=== PATIENT | female | born 1960 | race Caucasian/White ===

== ENCOUNTER 2018-12-07 15:49 | Emergency (ER) | payer MEDICARE, SELFPAY ==
[2018-12-07 15:51] VITALS: BP 166/104; PULSE 104; RESP 18; TEMP 36.7; O2SAT 100; BMI 19.3
--- NOTE | 2018-12-07 16:02 | EKG12_ITS ---
Test Reason : Blood Pressure : / mmHG Vent. Rate : 100 BPM Atrial Rate : 100 BPM P-R Int : 150 ms QRS Dur : 080 ms QT Int : 344 ms P-R-T Axes : 065 067 070 degrees QTc Int : 443 ms Normal sinus rhythm Normal ECG Confirmed by SHARRON MARSH, ALFREDO ([id number]), advertising editor ROBIN ALEXIS ([id number]) on 12/11/2018 9:20:09 AM Referred By: MARCIAL Confirmed By:ALFREDO MCDERMOTT MD
--- NOTE | 2018-12-07 16:02 | RAD_ITS ---
STUDY: X-RAY CHEST REASON FOR EXAM: Female, 58 years old. Cough and chest pain TECHNIQUE: PA and lateral views of the chest. COMPARISON: 06/04/2016 FINDINGS: EKG leads overlie the chest There is hyperinflation of the lungs consistent with chronic obstructive lung disease (COPD). There is no demonstrated pleural abnormality. Normal size heart. Normal mediastinum and stephania. Normal visualized pulmonary arteries. There is atherosclerotic calcification of the aortic arch with tortuosity. There are diffuse degenerative changes of the visualized thoracic spine. Normal visualized ribs, clavicles, and shoulders. There is no demonstrated abnormality of the visualized soft tissue structures of the upper abdomen. RAD/Chest PA and Lateral IMPRESSION: Hyperexpanded lungs, no superimposed acute pulmonary process Electronically Signed: Wild Villa MD at 16:42 EST , Service support ,
[2018-12-07 16:17] VITALS: PULSE 100; RESP 18; O2SAT 96
[2018-12-07] MEDS: Ipratropium/Albuterol Sulfate 3 ML AMPUL.NEB INHALATION (16:17)
[2018-12-07 16:19] LABS: Absolute Lymphocyte Count 1.56 X10^3/ul (0.83-4.51); Absolute Neutrophil Count 5.2 X10^3/uL (2.0-7.7); Basophil# 0.05 X10^3/uL; Basophil% 0.6 % (0-1); Eosinophil# 0.12 X10^3/uL; Eosinophils% 1.5 % (0-5); Hematocrit 40.3 % (37-47); Hemoglobin 13.7 g/dl (12.0-15.0); Lymphocyte # 1.56 X10^3/ul (4.0); Lymphocyte % 19.9 % (19-41); Mean Corpuscular Hgb 31.4 pg (27.0-32.0); Mean Corpuscular Volume 92.2 fL (81-99); Mean Platelet Vol. 8.9 fl (6.2-12.0); Monocyte# 0.92 X10^3/uL; Monocyte% 11.7 % (0-10); Neutrophil # 5.18 X10^3/uL (2.7-7.7); POSITIVE COUNT NO; POSITIVE DIFFERENTIAL NO; POSITIVE MORPHOLOGY NO; Platelet Count 328 K/mm3 (150-450); RBC Distribution Width CV 12.6 % (11.6-14.6); RBC Distribution Width SD 41.3 fl (35.1-43.9); Red Blood Count 4.37 M/mm3 (4.2-5.4); White Blood Count 7.9 K/mm3 (4.4-11.0)
[2018-12-07] MEDS: MethylPREDNISolone 125 MG/2 ML Vial IV (16:21)
[2018-12-07] MEDS: 0.9% Normal Saline 1,000 ML 150 ML IV (16:21)
[2018-12-07 16:37] LABS: Anion Gap 9 (5-15); BUN 16 mg/dL (7-18); BUN/Creat Ratio 19.4 RATIO (10-20); Calcium,Total 8.9 mg/dL (8.5-10.1); Chloride 96 mmol/L (98-107); Creatinine, Serum 0.82 mg/dL (0.55-1.02); EST Glomerular Filtration Rate 75 mL/min (>60); Est Glom Filt Rate - Afr Amer 91 mL/min (>60); Estimated Creatinine Clearance 52.24 ml/min; Glucose 81 mg/dL (74-106); Potassium 3.7 mmol/L (3.5-5.1); Sodium Level 133 mmol/L (136-145)
[2018-12-07 16:49] VITALS: BP 164/107; PULSE 104; RESP 21; O2SAT 96
--- NOTE | 2018-12-07 17:01 | ED.DCSUM_ITS ---
- ER Visit Summary Date of Service: 12/07/18 Chief Complaint: Cough and shortness of breath History of Present Illness: The patient is a [address] Colon. 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 She does have a history of COPD. She reports that she has cough shortness of breath began 2 days ago. Is gradually worsened. It is mild at rest and severe with coughing or walking around. She taken her albuterol MDI with transient relief. Patient reports that her cough is productive yellow sputum without blood. She had subjective fever, chills, and sweats. She does report she has had right- sided chest pain that is off and on. Last proximal me 10 seconds at a time. She actually reports that it actually improves with movement. Patient did not get a flu shot this year. She reports that she had similar symptoms previously with her COPD. Physical Examination: Vitals: Stable. Afebrile. General: Well-developed, but cachectic. Head: Normocephalic atraumatic. Neck: Supple, no lymphadenopathy. No JVD. Nontender. Cardiovascular: Regular rate and rhythm. No murmurs. Respiratory: No respiratory distress. Clear to auscultation bilaterally. Poor air movement. Abdominal: Soft, nontender, nondistended, normal bowel sounds. No guarding, rebound, or peritoneal signs. Back: Nontender. Extremities: Nontender, no edema. Skin: Normal color, no rash. Neurologic: Alert and oriented ?3. Cranial nerves II through XII are intact. Normal strength and sensation. Psych: Normal affect. Test Results: EKG is sinus at [address] changes. Troponin is negative. Chem-7 is more for sodium 133 and chloride 96. CBC is remarkable for monocytes of 12. Chest x-ray shows chronic emphysematous changes with hyperexpansion, but no acute process. Influenza was negative. Emergency Department Course and Treatment: Patient was treated with albuterol Atrovent aerosols. She was given Solu-Medrol IV. She is resting comfortably. Treatment Plan: Patient will be discharged with prednisone and doxycycline. Instructed to follow-up her primary care physician in 3-5 days if not improving. Return to the emergency department for any worsening symptoms. Disposition: To home in improved and stable condition. Impression: 1. COPD exacerbation. This note was generated with [employer] dictation software. It may contain incorrect words, spelling, and punctuation that were not noted in review of the chart prior to signing ED Disposition - Plan for ED Patient: Chief Complaint: Shortness of Breath Instructions: ED COPD Flare Prescriptions: Prednisone 10 mg PO DAILY #63 tablet Doxycycline 100 mg PO BID #20 capsule Referrals: Erick Colon DO [Primary Care Provider] - 3-5 Days if not improving
[2018-12-07] MEDS: Doxycycline 100 MG CAPSULE PO (17:13)
[2018-12-07 17:15] VITALS: BP 160/96; PULSE 106; RESP 18; O2SAT 97
--- OUTSIDE RECORDS SUMMARY | 2019-02-11 12:08 | XMS RPT_ITS ---
:1960 Author Organization [facility] Care Team Providers Name Role Phone TOM LABOY (FOOD TECHNOLOGIST) Attending Unavailable ERICK LEONARD Attending Unavailable ERICK LEONARD Attending Unavailable ERICK LEONARD Referring Unavailable ERICK LEONARD L Referring Unavailable ERICK LEONARD L Referring Unavailable ERICK LEONARD Referring Unavailable Erick Leonard Primary Care Unavailable Benjamin Hess Attending Unavailable PROBLEMS PROBLEMS DATE TYPE CONDITION / CODE ATTENDING STATUS SOURCE 09/25/2018 Active Wedge compression NA Active [facility] fracture of [place] unspecified Repository thoracic vertebra, sequela / S22.000S(ICD-10) 08/03/2018 Active Encounter for NA Active [facility] screening [place] mammogram for Repository malignant neoplasm of breast / Z12.31(ICD-10) 08/02/2018 Active Solitary pulmonary NA Active [facility] nodule / [place] R91.1(ICD-10) Repository 08/02/2018 Active Abnormal findings NA Active [facility] on diagnostic [place] imaging of other Repository specified body structures / R93.8(ICD-10) PROCEDURES PROCEDURES No Procedure Records FoundRESULTS RESULTS 12 LEAD ELECTROCARDIOGRAM Observed: 12/11/2018 Status: F Source: [place] 9:20 AM [facility] REPOSITORY [facility] Cardiovascular Services [address] [place] [address] 12 Lead EKG 12/07/18 1605 MR#: [id number] Acct: [id number] Name: FANI HOLLAND Rep #: [id number] : 1960 58 From: Orlin Barber MD Attending Dr: Status: DEP ER Ordering Dr: Benjamin Hess MD Date: 12/07/18 Location: ED Sex: F C Admitted: Test Reason : Blood Pressure : / mmHG Vent. Rate : 100 BPM Atrial Rate : 100 BPM P-R Int : 150 ms QRS Dur : 080 ms QT Int : 344 ms P-R-T Axes : 065 067 070 degrees QTc Int : 443 ms Normal sinus rhythm Normal ECG Confirmed by SHARRON MARSH, ORLIN ([id number]), digital editor RBOIN ALEXIS ([id number]) on 12/11/2018 9:20:09 AM Referred By: MARCIAL Confirmed By:ORLIN BARBER MD 12/11/18919 Date Orlin Barber MD CC: Erick Zapata DO; Benjamin Hess MD Signed EMERGENCY DEPARTMENT Observed: 12/08/2018 Status: F Source: [place] SUMMARY 12:13 AM [facility] Medical Records Department [address] [place] [address] Emergency Department Summary 12/07/18 1659 MR#: [id number] Acct: [id number] Name: FANI HOLLAND Rep #: [id number] : 1960 58 From: Benjamin Hess MD PCP: Erick Zapata DO Status: DEP ER - ER Visit Summary Date of Service: 12/07/18 Chief Complaint: Cough and shortness of breath History of Present Illness: The patient is a [address] Leonard. She does not have a investment broker. She does have a history of COPD. She reports that she has cough shortness of breath began 2 days ago. Is gradually worsened. It is mild at rest and severe with coughing or walking around. She taken her albuterol MDI with transient relief. Patient reports that her cough is productive yellow sputum without blood. She had subjective fever, chills, and sweats. She does report she has had right- sided chest pain that is off and on. Last proximal me 10 seconds at a time. She actually reports that it actually improves with movement. Patient did not get a flu shot this year. She reports that she had similar symptoms previously with her COPD. Physical Examination: Vitals: Stable. Afebrile. General: Well-developed, but cachectic. Head: Normocephalic atraumatic. Neck: Supple, no lymphadenopathy. No JVD. Nontender. Cardiovascular: Regular rate and rhythm. No murmurs. Respiratory: No respiratory distress. Clear to auscultation bilaterally. Poor air movement. Abdominal: Soft, nontender, nondistended, normal bowel sounds. No guarding, rebound, or peritoneal signs. Back: Nontender. Extremities: Nontender, no edema. Skin: Normal color, no rash. Neurologic: Alert and oriented 3. Cranial nerves II through XII are intact. Normal strength and sensation. Psych: Normal affect. Test Results: EKG is sinus at [address] changes. Troponin is negative. Chem-7 is more for sodium 133 and chloride 96. CBC is remarkable for monocytes of 12. Chest x-ray shows chronic emphysematous changes with hyperexpansion, but no acute process. Influenza was negative. Emergency Department Course and Treatment: Patient was treated with albuterol Atrovent aerosols. She was given Solu-Medrol IV. She is resting comfortably. Treatment Plan: Patient will be discharged with prednisone and doxycycline. Instructed to follow-up her primary care physician in 3-5 days if not improving. Return to the emergency department for any worsening symptoms. Disposition: To home in improved and stable condition. Impression: 1. COPD exacerbation. This note was generated with [employer] dictation software. It may contain incorrect words, spelling, and punctuation that were not noted in review of the chart prior to signing ED Disposition - Plan for ED Patient: Chief Complaint: Shortness of Breath Instructions: ED COPD Flare Prescriptions: Prednisone 10 mg PO DAILY #63 tablet Doxycycline 100 mg PO BID #20 capsule Referrals: Erick Leonard, DO [Primary Care Provider] - 3-5 Days if not improving What to do if you have Problems For any increased pain, shortness of breath, bleeding, nausea or vomiting, chest pain, or any unexpected problems, contact your Primary Care Provider. Call [facility] ([phone]) or report to the closest Emergency Room. Call 911 if necessary. 12/08/18 0013 <Electronically signed by Benjamin Hess MD> Date Benjamin Hess MD Cosigner Signature (If Indicated): Date CC: Erick Zapata DO Observed: 12/07/2018 Status: F Source: [place] INFLUENZA A+B (RAPID 4:20 PM [facility] [place]) REPOSITORY FLU A/B Rapid Negative test results should be confirmed with FLU PANEL MOLECULAR if indicated. Influenza Ag, Direct Presumptive NEGATIVE for Influenza A/B Antigen (See Note) Performed By: #### M101.0101 #### [facility] [address] [place], [address] CHEST PA AND LATERAL Observed: 12/07/2018 Status: F Source: [place] 4:03 PM [facility] REPOSITORY [facility] Imaging Services [address] [place] [address] Chest PA and Lateral MR#: [id number] Acct: [id number] Name: FANI HOLLAND Rep #: [id number] : 1960 F 58 From: Lexa Villa MD PCP: Erick Zapata DO Status: PRE ER Study: Chest PA and Lateral Date of Exam: 12/07/18 Exam# [id number] Ordering Dr: Benjamin Hess MD STUDY: X-RAY CHEST REASON FOR EXAM: Female, 58 years old. Cough and chest pain TECHNIQUE: PA and lateral views of the chest. COMPARISON: 06/04/2016 FINDINGS: EKG leads overlie the chest There is hyperinflation of the lungs consistent with chronic obstructive lung disease (COPD). There is no demonstrated pleural abnormality. Normal size heart. Normal mediastinum and stephania. Normal visualized pulmonary arteries. There is atherosclerotic calcification of the aortic arch with tortuosity. There are diffuse degenerative changes of the visualized thoracic spine. Normal visualized ribs, clavicles, and shoulders. There is no demonstrated abnormality of the visualized soft tissue structures of the upper abdomen. RAD/Chest PA and Lateral IMPRESSION: Hyperexpanded lungs, no superimposed acute pulmonary process Electronically Signed: Wild Villa MD at 16:42 EST , Service support , CC: Erick Zapata DO; Benjamin Hess MD Exhibit Cleaner: Signed CBC W/DIFF, AUTOMATED Collected: 12/07/2018 Status: F Source: [place] 3:50 PM [facility] REPOSITORY TYPE CODE TESTS RESULT OUT OF RANGE REFERENCE UNITS LAB L100.1000 4.4-11.0 K/mm3 Normal WBC 7.9 LAB L100.1200 4.2-5.4 M/mm3 Normal RBC 4.37 LAB L100.1300 12.0-15.0 g/dl Normal HGB 13.7 LAB L100.1400 37-47 % Normal HCT 40.3 LAB L100.1500 81-99 fL Normal MCV 92.2 LAB L100.1600 27.0-32.0 pg Normal MCH 31.4 LAB L100.1700 32-36 g/gl Normal MCHC 34.0 LAB L100.1810 11.6-14.6 % Normal RDW CV 12.6 LAB L100.1820 35.1-43.9 fl Normal RDW SD 41.3 LAB L100.1900 150-450 K/mm3 Normal PLT 328 LAB L100.2000 6.2-12.0 fl Normal MPV 8.9 LAB L100.2100 47-70 % Normal NEUT% 66.0 LAB L100.2200 19-41 % Normal LY% 19.9 LAB L100.2300 0-10 % High MONO% 11.7 LAB L100.2400 0-5 % Normal EO% 1.5 LAB L100.2500 0-1 % Normal BASO% 0.6 LAB L100.2550 0.0-0.9 % Normal IM GRAN % 0.300 Result Comment: IG% - Immature Granulocytes (promyelocytes, myelocytes and metamyelocytes) > 1% indicates that a LEFT SHIFT is Present. LAB L100.2620 2.0-7.7 X10 3/uL Normal Absolute Neut 5.2 LAB L100.2720 0.83-4.51 X10 3/ul Normal Absolute Lymph 1.56 Performed By: #### L100.0100 #### [facility] [address] [facility] [place], [place], [address] BASIC METABOLIC Collected: 12/07/2018 Status: F Source: [place] PROFILE (BMP) 3:50 PM [facility] REPOSITORY TYPE CODE TESTS RESULT OUT OF RANGE REFERENCE UNITS LAB L501.0100 74-106 mg/dL Normal GLU 81 Result Comment: Please note revised GLUCOSE reference range effective 2017. LAB L501.1000 7-18 mg/dL Normal BUN 16 LAB L501.1100 0.55-1.02 mg/dL Normal CREAT,SERUM 0.82 Result Comment: The validity of the calculated GFR AND GFRAA in patients over 70 years has not been determined. Clinical correlation is essential. LAB L501.1110 >60 mL/min Normal EST GFR 75 Result Comment: Non- GFR Calc LAB L501.1115 >60 mL/min Normal EST GFR - AA 91 Result Comment: GFR Calc LAB L501.1255 ml/min Normal Estimated CRCL 52.24 LAB L501.1300 10-20 RATIO Normal BUN/CRE 19.4 LAB L501.2200 8.5-10 mg/dL Normal .1 CA 8.9 LAB L501.5300 136-14 mmol/L Low 5 NA 133 LAB L501.5600 3.5-5. mmol/L Normal 1 K 3.7 LAB L501.5900 98-107 mmol/L Low CL 96 LAB L501.6100 21.0-3 mmol/L Normal 2.0 CO2 28.0 LAB L501.6200 5-15 Normal GAP 9 Performed By: #### L500.2500, L501.4010 #### [facility] [address] [place], [address] TROPONIN-I Collected: 12/07/2018 Status: F Source: [place] 3:50 [facility] REPOSITORY TYPE CODE TESTS RESULT OUT OF RANGE REFERENCE UNITS LAB L501.4010 <0.045 ng/mL Normal < 0.015 TROPONIN-I Result Comment: TROPONIN-I EXPECTED VALUES <0.045 Negative 0.045 - 0.590 Consistent with Cardiac Damage > OR = 0.600 Critical Value Not every elevated troponin is indicative of [place]. These values should be used with clinical judgement in examining the patient's clinical picture for diagnosis. To establish a diagnosis of [place] versus myocardial injury, there must be a demonstrated rise and/or fall in the troponin values, in addition to ischemic symptoms, EKG changes, new regional wall motion abnormality, and/or angiographical evidence. PLEASE NOTE: REFERENCE RANGES EDITED 18 Performed By: #### L500.2500, L501.4010 #### [facility] [address] [place], [address] BD DXA - AXIAL Observed: 09/25/2018 Status: F Source: [place] 1:13 PM [facility] REPOSITORY * * *Final Report* * * DATE OF EXAM: Sep 25 2018 1:13PM [facility] 0804 - BD DXA - AXIAL SKELETON / PROCEDURE REASON: Closed compression fracture of thoracic vertebra, sequela * * * * Physician Interpretation * * * * PROCEDURE: BD DXA - AXIAL SKELETON INDICATION: Closed compression fracture of thoracic vertebra, sequela TECHNIQUE: Low dose hip images COMPARISON: LEFT HIP: The bone mineral density of the total region of the hip is 0.537 grams per square centimeter which yields a T-score of -3.3. . LEFT FEMORAL NECK: The bone mineral density of the femoral neck is 0.437 grams per square centimeter which yields a T-score of -3.7. . RIGHT HIP: The bone mineral density of the total region of the hip is 0.492 grams per square centimeter which yields a T-score of -3.7. . RIGHT FEMORAL NECK: The bone mineral density of the femoral neck is 0.419 grams per square centimeter which yields a T-score of -3.9. . 10-year Fracture Risk (FRAX): Major osteoporotic fracture risk 31% Hip fracture risk 14% IMPRESSION: Osteoporosis in both hips. WORLD [facility] ORG. CLASSIFICATION OF BONE MASS CLASSIFICATION T-SCORE Normal Greater than -1 Low Bone Mass Between -1 and -2.5 (Osteopenia) Osteoporosis Less than or equal to -2.5 Exhibit Cleaner: AAYUSH Transcribe Date/Time: Sep 25 2018 2:43P Dictated by : DARLING JULIAN MD This examination was interpreted and the report reviewed and electronically signed by: DARLING JULIAN MD on Sep 25 2018 2:44PM EST [id number] PROGRESS Observed: 09/25/2018 Status: COMPLETED Source: [place] 1:03 PM [facility] REPOSITORY HNO ID: [id number] Author: Carolann Valentine Rt Service: (none) Author Type: (none) Type: Progress Notes Filed: 09/25/2018 1:15 PM Note Text: Fani Holland September 25, 2018 [id number] Double identification: Patient identified by name and Bone Density Completed. Carolann Valentine Rt patient told of radiation jk 1:00pm not CNCO Observed: 08/03/2018 Status: COMPLETED Source: [place] 10:45 AM [facility] REPOSITORY HNO ID: [id number] Author: Mammography Coordinator Service: (none) Author Type: Physician Type: Letter Filed: 08/07/2018 11:31 PM Note Text: August 03, 2018 PID: [id number] Fani Holland [address] [place] [address] Dear Ms. Holland, We are pleased to inform you that the results of your recent breast imaging exam on 08/03/2018 are normal. Your mammogram demonstrates that you have dense breast tissue, which could hide abnormalities. Dense breast tissue, in and of itself, is a relatively common condition. Therefore, this information is not provided to cause undue concern; rather, it is to raise your awareness and promote discussion with your health care provider regarding the presence of dense breast tissue in addition to other risk factors. Early detection of cancer is very important. We also understand recommendations regarding breast cancer screening are controversial. Please discuss with your primary care provider which strategy is best for you and whether a mammogram is right for you. Your imaging studies and report will be kept on file at [facility] as part of your permanent medical record and are available for your continuing care. Thank you for allowing us to help in meeting your health care needs. Sincerely, Dr. Lee Interpreting Radiologist [facility] (Normal over 40) [facility] SCREENING Observed: 08/03/2018 Status: F Source: [place] 9:33 AM [facility] REPOSITORY * * *Final Report* * * DATE OF EXAM: Aug 03 2018 9:33AM [place] 0581 - [facility] SCREENING / PROCEDURE REASON: Encounter for screening mammogram for malignant neoplasm of breast * * * * Physician Interpretation * * * * RESULT: #[id number] - [facility] SCREENING BILATERAL DIGITAL SCREENING MAMMOGRAM WITH CAD: 08/03/2018 HISTORY: Screening Mammogram - patient reports NO breast symptoms /priors available for comparison. RESULT: TECHNIQUE: The study was acquired using full field digital technology and interpreted from soft copy. Current study was also evaluated with a Computer Aided Detection (CAD). Comparison is made to exams dated: 04/25/2017 mammogram, 03/03/2016 mammogram - [facility], and 03/11/2011 mammogram. The tissue of both breasts is heterogeneously dense. This may lower the sensitivity of mammography. No significant masses, calcifications, or other findings are seen in either breast. There has been no significant interval change. IMPRESSION: NEGATIVE There is no mammographic evidence of malignancy. A 1 year screening mammogram is recommended. Tamara Lee M.D., ch/krystle:08/03/2018 10:45:52 Mechanic General Operational Test: [place](Nettie)(Leonor), [facility] letter sent: Normal over 40 Mammogram BI-RADS: 1 Negative Exhibit Cleaner: Krystle Transcribe Date/Time: Aug 03 2018 9:08A Dictated by: TAMARA LEE MD This examination was interpreted and the report reviewed and electronically signed by: TAMARA LEE MD on Aug 03 2018 10:45AM EST [id number] PROGRESS Observed: 08/03/2018 Status: COMPLETED Source: [place] 9:06 AM [facility] REPOSITORY HNO ID: [id number] Author: Priscilla Paris Service: (none) Author Type: (none) Type: Progress Notes Filed: 08/03/2018 9:07 AM Note Text: Radiology Service Progress Note PATIENT NAME: Fani Holland DATE OF SERVICE: August 03, 2018 TIME: 9:06 AM PATIENT IDENTITY VERIFICATION COMPLETED USING TWO (2) METHODS: Patient confirmed name verbally and Date of . PATIENT GENDER DATA: Female. status: : No status: NO. PATIENT RELEVANT IMPLANT DATA REVIEWED: Not Applicable RADIOLOGY DEPARTMENT: [facility] DATA: Not applicable SIGNED BY: Priscilla Sellers Rt August 03, 2018 9:[address] CHEST WO IVCON Observed: 08/02/2018 Status: F Source: [place] 1:02 PM [facility] REPOSITORY * * *Final Report* * * DATE OF EXAM: Aug 02 2018 1:02PM [facility] 0541 - CT CHEST WO IVCON / PROCEDURE REASON: multiple diagnoses * * * * Physician Interpretation * * * * EXAMINATION: CHEST CT WITHOUT CONTRAST CLINICAL HISTORY: Shortness of breath for a few months. Abnormal findings on diagnostic imaging of other specified body structures Technique: Spiral CT acquisition of the chest from the thoracic inlet to the upper abdomen without contrast. MQ: CTCWOR_4 CT Dose-Length Product: 82 mGy*cm CT Dose Reduction Employed: Automated exposure control (AEC) Comparison: Chest radiograph dated 08/30/2017. No prior chest CT. RESULT: Limitations: None. Lines, tubes, and devices: None. Lung parenchyma and pleura: There is emphysema with mild, diffuse bronchiectasis. Mild scarring is seen within the left upper lobe. There is no CT evidence for pneumonia. There is no pleural effusion, endobronchial lesion, or pneumothorax. There is linear atelectasis seen within lingula and right middle lobe. A calcified granuloma is seen within the right lung base. There are subcentimeter indeterminate noncalcified pulmonary nodules. For example, there is an indeterminate 2 mm nodule seen within the right lower lobe (series 3, image #130). There is an indeterminate 3 mm nodule seen within the right upper lobe (series 3, image #34). Indeterminate spiculated opacity seen within the left lung base, measuring approximately 1.0 x 0.7 cm (series 3, image #65). There is no CT evidence for pneumonia. There is no pleural effusion, endobronchial lesion, or pneumothorax. Thoracic inlet, heart, and mediastinum: There is heterogeneity of the thyroid gland, with coarse calcification seen adjacent to the left lobe of the thyroid gland. There are no pathologically enlarged axillary, mediastinal, or hilar lymph nodes. Atherosclerotic calcifications are present within the thoracic aorta and coronary arteries. The heart is normal in size. There is a trace pericardial effusion. Bones and soft tissues: There is osteopenia, scoliosis, and multilevel degenerative change seen within the thoracic spine. There or wedge compression deformities seen involving the T12 as well as the L1 vertebral bodies. Upper abdomen: Nonspecific wall thickening of the stomach likely relates to underdistention. IMPRESSION: Emphysema with mild, diffuse bronchiectasis. Scarring seen within the left upper lobe. No convincing CT evidence for pneumonia. Indeterminate bilateral pulmonary nodules. The largest nodule is seen within the left lung base and measures up to 1 cm. Consider a follow-up examination in 3-6 months in order to assess stability. Wedge compression deformities seen involving the T12 as well as the L1 vertebral bodies. Exhibit Cleaner: AAYUSH Transcribe Date/Time: Aug 02 2018 12:52P Dictated by : GENA NAJERA MD This examination was interpreted and the report reviewed and electronically signed by: GENA NAJERA MD on Aug 02 2018 1:04PM EST [id number] Observed: 08/02/2018 Status: COMPLETED Source: [place] 11:56 AM [facility] REPOSITORY HNO ID: [id number] Author: Jenny Khan Service: (none) Author Type: (none) Type: Progress Notes Filed: 08/02/2018 12:04 PM Note Text: Radiology Service Progress Note PATIENT NAME: Fani Holland DATE OF SERVICE: August 02, 2018 TIME: 11:56 AM PATIENT IDENTITY VERIFICATION COMPLETED USING TWO (2) METHODS: Patient confirmed name verbally and Date of . PATIENT GENDER DATA: Female. status: : No status: NO. PATIENT RELEVANT IMPLANT DATA REVIEWED: Not Applicable RADIOLOGY DEPARTMENT: CT; Exam(s) Completed: Chest PERIPHERAL IV DATA: Not applicable SIGNED BY: Jenny Kebede Ct August 02, 2018 11:56 AM PROGRESS Observed: 07/19/2018 Status: COMPLETED Source: [place] 6:03 PM [facility] REPOSITORY HNO ID: [id number] Author: Erick Leonard Service: (none) Author Type: Physician Type: Progress Notes Filed: 07/19/2018 6:10 PM Note Text: CC: Fani Holland is a 58 year old female who presents to the office for 3 months follow up HPI: COPD, hasn't had recent PFTs or CT chest which was ordered. Has been unable to afford her Symbicort due to high co pay cost. She states she is working with medical social worker on this for ? Patient assistance program She is using her Incruse regularly She is still smoking daily about 1 ppd, she is refusing still to quit. Denies any new hemoptysis, still with chronic dyspnea and cough and wheezing which is unchanged Underweight, doesn't eat balanced meals, often junk food and only intermittently, not much protein rich foods, has difficulty getting to the food pantry due to lack of ride etc. PAST MEDICAL HISTORY Diagnosis Date - Acute, but ill-defined, cerebrovascular disease hx of stroke at age 32 - Generalized anxiety disorder Anxiety, Generalized - Obstructive chronic bronchitis with exacerbation (HCC) COPD - Tetrahydrocannabinol (THC) use disorder, mild, abuse per patient on 06/27/2017 PAST SURGICAL HISTORY Procedure Laterality Date - LIGATE FALLOPIAN TUBE 1992 Tubal ligation - PULMONARY FUNCTION TEST 01/14/05 - REMOVAL ADENOIDS,PRIMARY,<12 Y/O Adenoidectomy - REMOVAL OF TONSILS,<12 Y/O Tonsillectomy Current Outpatient Prescriptions: VENTOLIN HFA 90 mcg/actuation inhaler inhale 2 puffs by mouth every 4 hours if needed for wheezing or shortness of breath umeclidinium (INCRUSE ELLIPTA) 62.5 mcg/actuation inhaler inhale 1 puff by mouth as directed once daily estradiol (ESTRACE) 0.01 % (0.1 mg/gram) vaginal cream Use 1 g vaginally twice a week. vitamin b complex (B COMPLETE) tab Take 1 tablet by mouth three times daily. Must contain 30mg of Vit B6 Vitamin E 600 unit capsule Take 1 capsule by mouth once daily. Nebulizer NEBULIZER FOR HOME USE. DX: J44.9 ASPIRIN 81 MG TAB Take one (1) tablet daily . albuterol (PROVENTIL) 2.5 mg /3 mL (0.083 %) nebulizer solution Use 3 mL via nebulizer every 4 hours as needed for Wheezing/Shortness of Breath. metroNIDAZOLE (FLAGYL) 250 mg tablet Take 2 tablets by mouth twice daily. budesonide-formoterol (SYMBICORT) 80-4.5 mcg/actuation inhaler Inhale 2 Puffs as instructed twice daily. doxycycline monohydrate 100 mg tablet Take 1 tablet by mouth twice daily. Hydrochlorothiazide 12.5 mg capsule Take 1 capsule by mouth once daily. No current facility-administered medications for this visit. 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 ROS: See HPI PE: BP 130/84 Pulse 80 Temp (Src) 97.8 (Right Tympanic) Resp 24 Wt 88 lb (39.9kg) Gen: AANDOX3, NAD, non-toxic appearing HEENT: PERRLA, EOMs intact b/l, nares without drainage, pharynx without erythema, exudate, lesions, or drainage. Uvula midline. Neck: No LAD, no thyromegaly, no meningismus. CV: RRR, no murmur, normal s1s2 Lungs: diffusely diminished, scattered wheezes expiratory, no rhonchi or rales, tripod position, no conversational dyspnea Skin: No rashes, lesions, or wounds on exposed skin. No edema ASSESSMENT/PLAN: 1. COPD with chronic bronchitis (HCC) - ICD9: 491.20, ICD10: J44.9 (primary diagnosis) - needs to restart on Symbicort, needs to have PFTs and CT chest as previously ordered, d/w her today the importance of needing to quit smoking - ALBUTEROL SULFATE 2.5 MG/3 ML (0.083 %) SOLUTION FOR NEBULIZATION 2. Underweight - ICD9: 783.22, ICD10: R63.6 - needs to increase fats and proteins in her diet, griffith many calories a day with her COPD severity 3. Visit for screening mammogram - ICD9: V76.12, ICD10: Z12.31 - DEE SCREENING Erick Leonard DO Return if no improvement. Follow up with Erick Leonard DO. Discussed risks, benefits, alternatives, and potential side effects of medications. Patient/Guardian expressed understanding and agreed with the plan. See patient instructions. Erick Leonard DO [address] [place] [address] [place] Observed: 07/19/2018 Status: COMPLETED Source: [place] 5:20 PM [facility] REPOSITORY Office Visit (FAMPWS) FANI HOLLAND ([id number]) 1960 F Date Time Provider Department 07/19/18 5:20 PM [facility] During your visit today, we recorded the following information about you: Temperature Pulse Respiration Blood pressure 97.8 degrees 80/minute 24/minute 130/84 Weight 39.9 kg Erick Leonard DO 07/19/2018 6:10 PM Signed CC: Fani Holland is a 58 year old female who presents to the office for 3 months follow up HPI: COPD, hasn't had recent PFTs or CT chest which was ordered. Has been unable to afford her Symbicort due to high co pay cost. She states she is working with medical social worker on this for ? Patient assistance program She is using her Incruse regularly She is still smoking daily about 1 ppd, she is refusing still to quit. Denies any new hemoptysis, still with chronic dyspnea and cough and wheezing which is unchanged Underweight, doesn't eat balanced meals, often junk food and only intermittently, not much protein rich foods, has difficulty getting to the food pantry due to lack of ride etc. PAST MEDICAL HISTORY Diagnosis Date - Acute, but ill-defined, cerebrovascular disease hx of stroke at age 32 - Generalized anxiety disorder Anxiety, Generalized - Obstructive chronic bronchitis with exacerbation (HCC) COPD - Tetrahydrocannabinol (THC) use disorder, mild, abuse per patient on 06/27/2017 PAST SURGICAL HISTORY Procedure Laterality Date - LIGATE FALLOPIAN TUBE 1992 Tubal ligation - PULMONARY FUNCTION TEST 01/14/05 - REMOVAL ADENOIDS,PRIMARY,<12 Y/O Adenoidectomy - REMOVAL OF TONSILS,<12 Y/O Tonsillectomy Current Outpatient Prescriptions: VENTOLIN HFA 90 mcg/actuation inhaler inhale 2 puffs by mouth every 4 hours if needed for wheezing or shortness of breath umeclidinium (INCRUSE ELLIPTA) 62.5 mcg/actuation inhaler inhale 1 puff by mouth as directed once daily estradiol (ESTRACE) 0.01 % (0.1 mg/gram) vaginal cream Use 1 g vaginally twice a week. vitamin b complex (B COMPLETE) tab Take 1 tablet by mouth three times daily. Must contain 30mg of Vit B6 Vitamin E 600 unit capsule Take 1 capsule by mouth once daily. Nebulizer NEBULIZER FOR HOME USE. DX: J44.9 ASPIRIN 81 MG TAB Take one (1) tablet daily . albuterol (PROVENTIL) 2.5 mg /3 mL (0.083 %) nebulizer solution Use 3 mL via nebulizer every 4 hours as needed for Wheezing/Shortness of Breath. metroNIDAZOLE (FLAGYL) 250 mg tablet Take 2 tablets by mouth twice daily. budesonide-formoterol (SYMBICORT) 80-4.5 mcg/actuation inhaler Inhale 2 Puffs as instructed twice daily. doxycycline monohydrate 100 mg tablet Take 1 tablet by mouth twice daily. Hydrochlorothiazide 12.5 mg capsule Take 1 capsule by mouth once daily. No current facility-administered medications for this visit. 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 ROS: See HPI PE: BP 130/84 Pulse 80 Temp (Src) 97.8 (Right Tympanic) Resp 24 Wt 88 lb (39.9kg) Gen: AANDOX3, NAD, non-toxic appearing HEENT: PERRLA, EOMs intact b/l, nares without drainage, pharynx without erythema, exudate, lesions, or drainage. Uvula midline. Neck: No LAD, no thyromegaly, no meningismus. CV: RRR, no murmur, normal s1s2 Lungs: diffusely diminished, scattered wheezes expiratory, no rhonchi or rales, tripod position, no conversational dyspnea Skin: No rashes, lesions, or wounds on exposed skin. No edema ASSESSMENT/PLAN: 1. COPD with chronic bronchitis (HCC) - ICD9: 491.20, ICD10: J44.9 (primary diagnosis) - needs to restart on Symbicort, needs to have PFTs and CT chest as previously ordered, d/w her today the importance of needing to quit smoking - ALBUTEROL SULFATE 2.5 MG/3 ML (0.083 %) SOLUTION FOR NEBULIZATION 2. Underweight - ICD9: 783.22, ICD10: R63.6 - needs to increase fats and proteins in her diet, griffith many calories a day with her COPD severity 3. Visit for screening mammogram - ICD9: V76.12, ICD10: Z12.31 - DEE SCREENING Erick Leonard DO Return if no improvement. Follow up with Erick Leonard DO. Discussed risks, benefits, alternatives, and potential side effects of medications. Patient/Guardian expressed understanding and agreed with the plan. See patient instructions. Erick Leonard DO [address] [place] [address] Referring Provider: ERICK LEONARD [[id number]] Allergies As of Date: 07/19/2018 Noted Allergy Reaction CODEINE 12/01/2005 11 - Vomiting IVP DYE (IODINE) 08/31/2005 10 - Anaphylaxis Comments: DEATHLY ILL , hypotension, shock Date Reviewed: 07/19/2018 Reviewed by: Jazzy Stinson LPN - Fully Assessed Reason for Visit: Follow Up [171] Cmt: 3 months Primary Visit Diagnosis:COPD with chronic bronchitis (HCC) [J44.9] Other Visit Diagnoses:Underweight [R63.6] Visit for screening mammogram [Z12.31] Order(s):DEE SCREENING [2500147] Order #: [id number] FUTURE albuterol (PROVENTIL) 2.5 mg /3 mL (0.083 %) nebulizer solutionUse 3 mL via nebulizer every 4 hours as needed for Wheezing/Shortness of Breath.Disp: 1 PackageRfl: 1 Prescriptions as of 07/19/2018 Sig: VENTOLIN HFA 90 MCG/ACTUATION* inhale 2 puffs by mouth every* UMECLIDINIUM 62.5 MCG/ACTUATI* inhale 1 puff by mouth as dir* ESTRADIOL 0.01% (0.1 MG/GRAM)* Use 1 g vaginally twice a wee* VITAMIN B COMPLEX TABLET Take 1 tablet by mouth three * VITAMIN E 600 UNIT CAPSULE Take 1 capsule by mouth once * COMPOUNDED PRESCRIPTION NEBULIZER FOR HOME USE. DX: * ASPIRIN 81 MG TABLET Take one (1) tablet daily . ALBUTEROL SULFATE 2.5 MG/3 ML* Use 3 mL via nebulizer every * METRONIDAZOLE 250 MG TABLET Take 2 tablets by mouth twice* BUDESONIDE-FORMOTEROL HFA 80 * Inhale 2 Puffs as instructed * DOXYCYCLINE MONOHYDRATE 100 M* Take 1 tablet by mouth twice * HYDROCHLOROTHIAZIDE 12.5 MG C* Take 1 capsule by mouth once * Medication notes this encounter HYDROCHLOROTHIAZIDE 12.5 MG CAPSULE >> Jazzy Stinson LPN 07/19/2018 5:24 PM >> JAZZY STINSON LPN TueJul 19, 2018 5:24 PM Finished More... Problem List As Of Date 07/19/2018 Noted Resolved CVA [I67.89] GENERALIZED ANXIETY DIS [F41.1] More... TOBACCO USE DISORDER [F17.200] INVALID FOR* COPD with chronic bronchitis (HCC) [J44.9] INVALID FOR* Controlled substance agreement signed [Z79.899] INVALID FOR* Tetrahydrocannabinol (THC) use disorder, mild, *INVALID FOR* More... Prescriptions ordered this encounter Disp Refills Start End ALBUTEROL SULFATE 2.5 MG/3 ML (0.083* 1 Pa* 1 07/19/2018 Route: NEBULIZATION Sig: Use 3 mL via nebulizer every 4 hours as needed for Wheezing/Shortness of Breath. Encounter Status:Closed by ERICK LEONARD DO on 07/19/18 CNPTOUTREACH Observed: 07/04/2018 Status: COMPLETED Source: [place] 12:00 AM [facility] REPOSITORY Patient Outreach (INTMWH) FANI HOLLAND ([id number]) 1960 F Date Time Provider Department 07/04/18 ERICK LEONARD [facility] During your visit today, we recorded the following information about you: Allergies As of Date: 07/04/2018 Noted Allergy Reaction CODEINE 12/01/2005 11 - Vomiting IVP DYE (IODINE) 08/31/2005 10 - Anaphylaxis Comments: DEATHLY ILL , hypotension, shock Date Reviewed: 02/22/2018 Reviewed by: Jazzy Stinson LPN - Fully Assessed Visit Diagnosis:Medication management [Z79.899] Order(s):HGB A1C [GYTQT4X] Order #: [id number] FUTURE Prescriptions as of 07/04/2018 Sig: VENTOLIN HFA 90 MCG/ACTUATION* inhale 2 puffs by mouth every* UMECLIDINIUM 62.5 MCG/ACTUATI* inhale 1 puff by mouth as dir* ESTRADIOL 0.01% (0.1 MG/GRAM)* Use 1 g vaginally twice a wee* METRONIDAZOLE 250 MG TABLET Take 2 tablets by mouth twice* BUDESONIDE-FORMOTEROL HFA 80 * Inhale 2 Puffs as instructed * DOXYCYCLINE MONOHYDRATE 100 M* Take 1 tablet by mouth twice * HYDROCHLOROTHIAZIDE 12.5 MG C* Take 1 capsule by mouth once * VITAMIN B COMPLEX TABLET Take 1 tablet by mouth three * VITAMIN E 600 UNIT CAPSULE Take 1 capsule by mouth once * COMPOUNDED PRESCRIPTION NEBULIZER FOR HOME USE. DX: * ASPIRIN 81 MG TABLET Take one (1) tablet daily . More... Problem List As Of Date 07/04/2018 Noted Resolved CVA [I67.89] GENERALIZED ANXIETY DIS [F41.1] More... TOBACCO USE DISORDER [F17.200] INVALID FOR* COPD with chronic bronchitis (HCC) [J44.9] INVALID FOR* Controlled substance agreement signed [Z79.899] INVALID FOR* Tetrahydrocannabinol (THC) use disorder, mild, *INVALID FOR* More... Encounter Status:Closed by EPIC, PRODUSER on 09/01/18 HPV W/GENOTYPE Collected: 02/22/2018 Status: F Source: [place] 9:43 PM [facility] REPOSITORY TYPE CODE TESTS RESULT OUT OF REFERENCE UNITS RANGE LAB HPVT16 HPV HighRisk Negative for Type 16 HPV DNA high risk type 16 by PCR. LAB HPVT18 HPV HighRisk Negative for Type 18 HPV DNA high risk type 18 by PCR. LAB HPVHRO HPV HighRisk Negative for Other HPV DNA high risk types: 31,33,35,39,45 ,51,52,56,58,5 9,66,68 by PCR. Result Comment: This test was developed and its performance characteristics determined by [facility]'s [facility] [place] ([facility]). It has not been cleared or approved by the FDA. -[facility] is regulated under CLIA as qualified to perform high-complexity testing. This test is used for clinical purposes. It should not be regarded as inv estigational or for research. Performed By: #### HPVHRR #### [facility] [address] [place], [place] [address] CYTOLOGY Observed: 02/22/2018 Status: C Source: [place] 1:58 PM [facility] REPOSITORY ADDITIONAL PROCEDURES PRESENT Specimen originated from [facility] Specimen #: [id number] Submitting Physician: ERICK LEONARD DO SPECIMEN SUBMITTED A: CERVICAL, SCREENING, FLUID FINAL DIAGNOSIS A. CERVICAL, SCREENING, FLUID Satisfactory for interpretation. Negative for intraepithelial lesion or malignancy. This specimen has been analyzed by the ThinPrep Imaging System, an automated imaging and review system, which assists the laboratory in evaluating cells on ThinPrep Pap tests. Following automated imaging, selected ayoub from every slide are reviewed by a reviewer sales. [employer] Olivares(ASCP) (Electronic Signature) ADDITIONAL PROCEDURE(S) HUMAN PAPILLOMA VIRUS Date Ordered: 02/23/2018 Date Reported: 02/24/2018 Procedure Results and Interpretation Negative for HPV DNA high risk type 16 by PCR. Negative for HPV DNA high risk type 18 by PCR. Negative for HPV DNA high risk types: 31,33,35,39,45,51,52,56,58,59,66,68 by PCR. This test was developed and its performance characteristics determined by [facility] [place] ([facility]). It has not been cleared or approved by the FDA. RT-[facility] is regulated under CLIA as qualified to perform high-complexity testing. This test is used for clinical purposes. It should not be regarded as investigational or for research. CLINICAL DATA ROUTINE EXAM, HPV Testing: Yes, automatic HPV patients over 30 Date of Last Menstrual Period: Postmenopausal STAINS A: CERVICAL, SCREENING, FLUID THIN PREP SURGICAL TECH Mona Yarbrough M.D., Gas Scrubber Operator Date of Report: 03/02/2018 Date of Procedure: 02/22/2018 Date of Receipt: 02/23/2018 Submitted by: ERICK LEONARD DO Location: [facility] Diagnostic interpretation performed at [facility], [address], [facility] [address]. The Pap Smear is a screening test for cervical cancer. False negative results occur with all screening tests, emphasizing the need for rescreening at recommended intervals, and clinical correlation. PROGRESS Observed: 02/22/2018 Status: COMPLETED Source: [place] 1:55 PM [facility] REPOSITORY HNO ID: [id number] Author: Erick Leonard Service: (none) Author Type: Physician Type: Progress Notes Filed: 02/22/2018 1:58 PM Note Text: CC: Fani oHlland is a 57 year old female who presents to the office for a well woman examination. HPI: + vaginal dryness She states she has worsening vaginal dryness. Denies hot flashes. Denies mood swings. She denies any vaginitis or vaginal discharge. She is currently sexually active with male partner and which is sometimes painful/dry. She states that her last menstrual cycle was age 38. She denies any postmenopausal vaginal bleeding or spotting. She is not on estrogen replacement and no past history of estrogen replacement. COPD, hasn't had recent PFTs or CT chest which was ordered. Has been unable to afford her Incruse and Symbicort due to high co pay cost PAST MEDICAL HISTORY Diagnosis Date - Acute, but ill-defined, cerebrovascular disease hx of stroke at age 32 - Generalized anxiety disorder Anxiety, Generalized - Obstructive chronic bronchitis with exacerbation (HCC) COPD - Tetrahydrocannabinol (THC) use disorder, mild, abuse per patient on 06/27/2017 PAST SURGICAL HISTORY Procedure Laterality Date - LIGATE FALLOPIAN TUBE 1992 Tubal ligation - PULMONARY FUNCTION TEST 01/14/05 - REMOVAL ADENOIDS,PRIMARY,<12 Y/O Adenoidectomy - REMOVAL OF TONSILS,<12 Y/O Tonsillectomy Social History: Social History Substance Use Topics - Smoking status: Current Every Day Smoker Packs/day: 0.50 Years: 42.00 Types: Cigarettes - Smokeless tobacco: Never Used - Alcohol use 16.0 oz/week Comment: states quit, hx of abuse FAMILY HISTORY Problem Relation Age of Onset - Emphysema Mother - Cancer Mother uterine - Emphysema Father - Hypertension Father - Cancer Father lung - Emphysema Paternal Grandmother - Emphysema Paternal Grandfather Current Outpatient prescriptions: metroNIDAZOLE (FLAGYL) 250 mg tablet Take 2 tablets by mouth twice daily. Hydrochlorothiazide 12.5 mg capsule Take 1 capsule by mouth once daily. vitamin b complex (B COMPLETE) tab Take 1 tablet by mouth three times daily. Must contain 30mg of Vit B6 Vitamin E 600 unit capsule Take 1 capsule by mouth once daily. ASPIRIN 81 MG TAB Take one (1) tablet daily . estradiol (ESTRACE) 0.01 % (0.1 mg/gram) vaginal cream Use 1 g vaginally twice a week. VENTOLIN HFA 90 mcg/actuation inhaler inhale 2 puffs by mouth every 4 hours if needed for wheezing or shortness of breath budesonide-formoterol (SYMBICORT) 80-4.5 mcg/actuation inhaler Inhale 2 Puffs as instructed twice daily. umeclidinium (INCRUSE ELLIPTA) 62.5 mcg/actuation inhaler inhale 1 puff by mouth as directed once daily doxycycline monohydrate 100 mg tablet Take 1 tablet by mouth twice daily. Nebulizer NEBULIZER FOR HOME USE. DX: J44.9 Allergies: ALLERGIES Allergen Reactions - Codeine Vomiting - Ivp Dye [Iodine] Anaphylaxis DEATHLY ILL , hypotension, shock ROS: See HPI PE: 02/22/18 1314 BP: 136/80 Pulse: 80 Resp: 24 Temp: 36.9 ?C (98.4 ?F) TempSrc: Left Tympanic Weight: 44 kg (97 lb) Height: 149.9 cm (4' 11) Gen: AANDO, NAD, non-toxic appearing, Pleasant, cooperative HEENT: NT/AC, PERRLA, EOMs intact b/l, nares clear and patent b/l, pharynx without erythema, exudate or lesions. Uvula midline. EACs without erythema or debris. TMs pearly bui with intact landmarks b/l. Neck: supple, No cervical LAD, no thyromegaly, no carotid bruits CV: RRR, normal S1 and S2, no murmurs, no gallops, no rubs, Pulses 2+ and symmetric in UE and LE b/l Lungs: normal respiratory effort, CTA b/l, no wheezing or rhonchi or rales Abd: soft, NT, ND, +BS, no hepatosplenomegaly Breasts: small size without any skin abnormalities or skin lesions. Nipples without skin changes, drainage or bleeding. No lumps or masses or pain on examination. No axillary LAD. Genitourinary: Urethral meatus atrophic without lesions externally, External genitalia appear normal without atrophy or lesions. Vagina is atrohic appearing, pink, without lesions or discharge, no pain during examination. Cervix appears normal without bleeding or discharge. Bimanual examination reveals uterus to be mobile, normal size and non tender. No adnexal tenderness b/l. Skin: warm, dry, intact, No rashes or lesions on exposed skin. ASSESSMENT/PLAN: 1. Well woman exam with routine gynecological exam - ICD9: V72.31, ICD10: Z01.419 (primary diagnosis) - Completed breast exam - Completed pap exam - Encouraged monthly BSE - Increase calcium intake with supplements or by diet (goal of 4896-1582 mg/day - Follow up for annual exam in one year. - ESTRADIOL 0.01% (0.1 MG/GRAM) VAGINAL CREAM 2. Atrophic vaginitis - ICD9: 627.3, ICD10: N95.2 - rx as below - ESTRADIOL 0.01% (0.1 MG/GRAM) VAGINAL CREAM 3. COPD with chronic bronchitis (HCC) - ICD9: 491.20, ICD10: J44.9 - need for incruse and symbicort due to severity of COPD 4. Tobacco use disorder - ICD9: 305.1, ICD10: F17.200 - Cessation encouraged. - Physiologic and physical aspects of tobacco addiction as well as strategies for quitting were discussed. - Counseling was given focusing on the harmful effects of this addiction especially given the patient's medical condition(s) which will be worsened because of the chemicals in tobacco. - Counseling was given 3-4 minutes. Erick Leonard DO To ER if develops chest pain, shortness of breath, or severe worsening of symptoms. Discussed risks, benefits, alternatives, and potential side effects of medications. Patient expressed understanding and agreed with the plan. Erick Leonard DO [address] [place] [address] WILL Observed: 02/22/2018 Status: COMPLETED Source: [place] 1:00 PM [facility] REPOSITORY [facility] FANI HOLLAND ([id number]) 1960 F Date Time Provider Department 02/22/18 1:00 PM ERICK LEONARD During your visit today, we recorded the following information about you: Temperature Pulse Respiration Blood pressure 98.4 degrees 80/minute 24/minute 136/80 Weight Height 44 kg 1.499 m Erick Leonard DO 02/22/2018 1:58 PM Signed CC: Fani Holland is a 57 year old female who presents to the office for a well woman examination. HPI: + vaginal dryness She states she has worsening vaginal dryness. Denies hot flashes. Denies mood swings. She denies any vaginitis or vaginal discharge. She is currently sexually active with male partner and which is sometimes painful/dry. She states that her last menstrual cycle was age 38. She denies any postmenopausal vaginal bleeding or spotting. She is not on estrogen replacement and no past history of estrogen replacement. COPD, hasn't had recent PFTs or CT chest which was ordered. Has been unable to afford her Incruse and Symbicort due to high co pay cost PAST MEDICAL HISTORY Diagnosis Date - Acute, but ill-defined, cerebrovascular disease hx of stroke at age 32 - Generalized anxiety disorder Anxiety, Generalized - Obstructive chronic bronchitis with exacerbation (HCC) COPD - Tetrahydrocannabinol (THC) use disorder, mild, abuse per patient on 06/27/2017 PAST SURGICAL HISTORY Procedure Laterality Date - LIGATE FALLOPIAN TUBE 1992 Tubal ligation - PULMONARY FUNCTION TEST 01/14/05 - REMOVAL ADENOIDS,PRIMARY,ANDlt;12 Y/O Adenoidectomy - REMOVAL OF TONSILS,ANDlt;11 Y/O Tonsillectomy Social History: Social History Substance Use Topics - Smoking status: Current Every Day Smoker Packs/day: 0.50 Years: 42.00 Types: Cigarettes - Smokeless tobacco: Never Used - Alcohol use 16.0 oz/week Comment: states quit, hx of abuse FAMILY HISTORY Problem Relation Age of Onset - Emphysema Mother - Cancer Mother uterine - Emphysema Father - Hypertension Father - Cancer Father lung - Emphysema Paternal Grandmother - Emphysema Paternal Grandfather Current Outpatient prescriptions: metroNIDAZOLE (FLAGYL) 250 mg tablet Take 2 tablets by mouth twice daily. Hydrochlorothiazide 12.5 mg capsule Take 1 capsule by mouth once daily. vitamin b complex (B COMPLETE) tab Take 1 tablet by mouth three times daily. Must contain 30mg of Vit B6 Vitamin E 600 unit capsule Take 1 capsule by mouth once daily. ASPIRIN 81 MG TAB Take one (1) tablet daily . estradiol (ESTRACE) 0.01 % (0.1 mg/gram) vaginal cream Use 1 g vaginally twice a week. VENTOLIN HFA 90 mcg/actuation inhaler inhale 2 puffs by mouth every 4 hours if needed for wheezing or shortness of breath budesonide-formoterol (SYMBICORT) 80-4.5 mcg/actuation inhaler Inhale 2 Puffs as instructed twice daily. umeclidinium (INCRUSE ELLIPTA) 62.5 mcg/actuation inhaler inhale 1 puff by mouth as directed once daily doxycycline monohydrate 100 mg tablet Take 1 tablet by mouth twice daily. Nebulizer NEBULIZER FOR HOME USE. DX: J44.9 Allergies: ALLERGIES Allergen Reactions - Codeine Vomiting - Ivp Dye [Iodine] Anaphylaxis DEATHLY ILL , hypotension, shock ROS: See HPI PE: 02/22/18 1314 BP: 136/80 Pulse: 80 Resp: 24 Temp: 36.9 ?C (98.4 ?F) TempSrc: Left Tympanic Weight: 44 kg (97 lb) Height: 149.9 cm (4' 11ANDquot;) Gen: AANDamp;O, NAD, non-toxic appearing, Pleasant, cooperative HEENT: NT/AC, PERRLA, EOMs intact b/l, nares clear and patent b/l, pharynx without erythema, exudate or lesions. Uvula midline. EACs without erythema or debris. TMs pearly bui with intact landmarks b/l. Neck: supple, No cervical LAD, no thyromegaly, no carotid bruits CV: RRR, normal S1 and S2, no murmurs, no gallops, no rubs, Pulses 2+ and symmetric in UE and LE b/l Lungs: normal respiratory effort, CTA b/l, no wheezing or rhonchi or rales Abd: soft, NT, ND, +BS, no hepatosplenomegaly Breasts: small size without any skin abnormalities or skin lesions. Nipples without skin changes, drainage or bleeding. No lumps or masses or pain on examination. No axillary LAD. Genitourinary: Urethral meatus atrophic without lesions externally, External genitalia appear normal without atrophy or lesions. Vagina is atrohic appearing, pink, without lesions or discharge, no pain during examination. Cervix appears normal without bleeding or discharge. Bimanual examination reveals uterus to be mobile, normal size and non tender. No adnexal tenderness b/l. Skin: warm, dry, intact, No rashes or lesions on exposed skin. ASSESSMENT/PLAN: 1. Well woman exam with routine gynecological exam - ICD9: V72.31, ICD10: Z01.419 (primary diagnosis) - Completed breast exam - Completed pap exam - Encouraged monthly BSE - Increase calcium intake with supplements or by diet (goal of 4475-2334 mg/day - Follow up for annual exam in one year. - ESTRADIOL 0.01% (0.1 MG/GRAM) VAGINAL CREAM 2. Atrophic vaginitis - ICD9: 627.3, ICD10: N95.2 - rx as below - ESTRADIOL 0.01% (0.1 MG/GRAM) VAGINAL CREAM 3. COPD with chronic bronchitis (HCC) - ICD9: 491.20, ICD10: J44.9 - need for incruse and symbicort due to severity of COPD 4. Tobacco use disorder - ICD9: 305.1, ICD10: F17.200 - Cessation encouraged. - Physiologic and physical aspects of tobacco addiction as well as strategies for quitting were discussed. - Counseling was given focusing on the harmful effects of this addiction especially given the patient's medical condition(s) which will be worsened because of the chemicals in tobacco. - Counseling was given 3-4 minutes. Erick Leonard DO To ER if develops chest pain, shortness of breath, or severe worsening of symptoms. Discussed risks, benefits, alternatives, and potential side effects of medications. Patient expressed understanding and agreed with the plan. Erick Leonard DO [address] [place] [address] Referring Provider: SELF [[id number]] Allergies As of Date: 02/22/2018 Noted Allergy Reaction CODEINE 12/01/2005 11 - Vomiting IVP DYE (IODINE) 08/31/2005 10 - Anaphylaxis Comments: DEATHLY ILL , hypotension, shock Date Reviewed: 02/22/2018 Reviewed by: Jazzy Stinson LPN - Fully Assessed Reason for Visit: Physical [83] Cmt: Pap Primary Visit Diagnosis:Well woman exam with routine gynecological exam [Z01.419] Other Visit Diagnoses:Atrophic vaginitis [N95.2] COPD with chronic bronchitis (HCC) [J44.9] Tobacco use disorder [F17.200] Order(s):estradiol (ESTRACE) 0.01 % (0.1 mg/gram) vaginal creamUse 1 g vaginally twice a week.Disp: 1 TubeRfl: 3 PAP FLUID CERVICAL SCREENING [7081202] Order #: [id number] Prescriptions as of 02/22/2018 Sig: METRONIDAZOLE 250 MG TABLET Take 2 tablets by mouth twice* HYDROCHLOROTHIAZIDE 12.5 MG C* Take 1 capsule by mouth once * VITAMIN B COMPLEX TABLET Take 1 tablet by mouth three * VITAMIN E 600 UNIT CAPSULE Take 1 capsule by mouth once * ASPIRIN 81 MG TABLET Take one (1) tablet daily . ESTRADIOL 0.01% (0.1 MG/GRAM)* Use 1 g vaginally twice a wee* VENTOLIN HFA 90 MCG/ACTUATION* inhale 2 puffs by mouth every* BUDESONIDE-FORMOTEROL HFA 80 * Inhale 2 Puffs as instructed * UMECLIDINIUM 62.5 MCG/ACTUATI* inhale 1 puff by mouth as dir* DOXYCYCLINE MONOHYDRATE 100 M* Take 1 tablet by mouth twice * COMPOUNDED PRESCRIPTION NEBULIZER FOR HOME USE. DX: * More... Problem List As Of Date 02/22/2018 Noted Resolved CVA [I67.89] GENERALIZED ANXIETY DIS [F41.1] More... TOBACCO USE DISORDER [F17.200] INVALID FOR* COPD with chronic bronchitis (HCC) [J44.9] INVALID FOR* Controlled substance agreement signed [Z76.489] INVALID FOR* Tetrahydrocannabinol (THC) use disorder, mild, *INVALID FOR* More... Prescriptions ordered this encounter Disp Refills Start End ESTRADIOL 0.01% (0.1 MG/GRAM) VAGINA* 1 Tu* 3 02/22/2018 Route: VAGINAL Sig: Use 1 g vaginally twice a week. Encounter Status:Closed by ERICK LEONARD DO on 02/22/18 VAG PATHOGENS DNA Collected: 01/12/2018 Status: F Source: [place] 9:55 AM [facility] REPOSITORY TYPE CODE TESTS RESULT OUT OF RANGE REFERENCE UNITS LAB TVDNA Negative for Trichomonas Negative vaginalis by DNA for Trichomonas Probe Trich vag vaginalis by DNA DNA Probe Probe LAB GVDNA Negative for Gardnerella Positive Abnormal vaginalis by DNA for Gardnerella Alert Probe Gui vag vaginalis by DNA DNA Probe probe. Result Comment: This is suggestive, but not diagnostic of bacterial vaginosis, results should be interpreted in conjunction with other data such as pH, amine odor, clue cells and vaginal discharge characteristics. LAB CANDNA Negative for Marjorie species Negative by DNA Probe Marjorie sp DNA for Marjorie Probe species by DNA Probe Performed By: #### VAGDNA #### [facility] [place] [employer] [facility] [place] [address] GC/CHLAMYDIA AMPLIF Collected: 01/12/2018 Status: F Source: [place] 9:55 [facility] REPOSITORY TYPE CODE TESTS RESULT OUT OF REFERENCE UNITS RANGE LAB GCCTSR GC/Chlam Amp Source [facility] LAB GCAMPL GC Amplification Request cancelled due to specimen being collected in improper collection device for test requested. Specimen sent out for GC/Chlamydia amplification. Account credited. LAB CLAMPL Chlamydia Amplif Request cancelled due to specimen being collected in improper collection device for test requested. Specimen sent out for GC/Chlamydia amplification. Account credited. Performed By: #### GCCT #### [facility] [place] [employer] [address] [place] [address] MISC SEND OUT TEST Collected: 01/12/2018 Status: F Source: [place] 9:55 [facility] REPOSITORY TYPE CODE TESTS RESULT OUT OF REFERENCE UNITS RANGE LAB NAME1 Chlamydia Test trachomatis and Neisseria gonorrhoeae by Major Gifts Officer Mediated Amplification (TMA), /UTM LAB RESU1 View results Test Results in Scanned Documents link when available. Performed By: #### [email or web address] #### [facility] [place] [employer] [address] [place] [address] PROGRESS Observed: 01/12/2018 Status: COMPLETED Source: [place] 9:18 [facility] REPOSITORY HNO ID: [id number] Author: Tom ([facility]) Podlogar Service: (none) Author Type: Nurse Practitioner Type: Progress Notes Filed: 01/12/2018 10:08 AM Note Text: 01/12/2018 Patient presents with: Discussion: lorie friend had infection was antibiotic , not sure of what kind, pt has had no s/s just wanting to make sure SUBJECTIVE: This is a 57 year old that is here today for above. Approximately 1 month ago gentlemen friend was treated for an infection. Per patient gentlemen friend told her it could be passed from person person. His symptoms were enlarged testicles. He was given an antibiotic but she does not know which one Per patient she has been in a monogamous relationship for the past 8 months. Denies, fever, weight loss, vaginal bleeding, discharge,odor, pain, or itching, painful intercourse,vaginal lesions, dysuria, or abdominal pain. PAST MEDICAL HISTORY Diagnosis Date - Acute, but ill-defined, cerebrovascular disease hx of stroke at age 32 - Generalized anxiety disorder Anxiety, Generalized - Obstructive chronic bronchitis with exacerbation (HCC) COPD - Tetrahydrocannabinol (THC) use disorder, mild, abuse per patient on 06/27/2017 ALLERGIES Codeine; Ivp Dye [Iodine] MEDICATIONS Current Outpatient Prescriptions: VENTOLIN HFA 90 mcg/actuation inhaler inhale 2 puffs by mouth every 4 hours if needed for wheezing or shortness of breath budesonide-formoterol (SYMBICORT) 80-4.5 mcg/actuation inhaler Inhale 2 Puffs as instructed twice daily. umeclidinium (INCRUSE ELLIPTA) 62.5 mcg/actuation inhaler inhale 1 puff by mouth as directed once daily sertraline (ZOLOFT) 50 mg tablet Take 1 tablet by mouth once daily. At bedtime doxycycline monohydrate 100 mg tablet Take 1 tablet by mouth twice daily. benzonatate (TESSALON PERLES) 100 mg capsule Take 1 capsule by mouth three times daily as needed. Hydrochlorothiazide 12.5 mg capsule Take 1 capsule by mouth once daily. vitamin b complex (B COMPLETE) tab Take 1 tablet by mouth three times daily. Must contain 30mg of Vit B6 Vitamin E 600 unit capsule Take 1 capsule by mouth once daily. busPIRone (BUSPAR) 5 mg tablet Take 1 tablet by mouth twice daily. Nebulizer NEBULIZER FOR HOME USE. DX: J44.9 ASPIRIN 81 MG TAB Take one (1) tablet daily . No current facility-administered medications for this visit. Medications and allergies reviewed by this provider. 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 REVIEW OF SYSTEMS GENERAL: No weight loss, malaise or fevers GI: No nausea, vomiting, or diarrhea and No heartburn or reflux symptoms : No history of dysuria, frequency or incontinence, See HPI SURGICAL TECH: Negative for abnormal vaginal bleeding, abnormal vaginal discharge or SEE HPI All other reviewed and negative other than HPI. OBJECTIVE: BP 118/78 (BP Site: Left Arm, BP Position: Sitting, BP Cuff Size: Regular Adult) Pulse 89 Resp 18 Wt 43.6 kg (96 lb 1.9 oz) SpO2 97% BMI 19.41 kg/m2. Vital signs reviewed by this provider. APPEARANCE Well appearing, alert, in no acute distress, well-hydrated, well nourished. HEART RRR with normal S1 and S2, no murmurs, no gallops, no JVD appreciated LUNG clear to auscultation ABDOMEN bowel sounds normoactive, no bruits, soft, non-tender, non-distended, no tenderness to palpation FEMALE Normal external genitalia, normal vagina and normal vaginal tone, normal cervix, normal uterus, size and consistency and normal adnexa without tenderness. Swabs for GC/Chlamydia and trich obtained. ASSESSMENT/PLAN: 1. Encounter for screening examination for chlamydial infection - ICD9: V73.98, ICD10: Z11.8 (primary diagnosis) - no red flag exam findings - discussed red flag symtpoms - discussed talking to partner regarding his treatment - await results for treamtment - VAGINAL PATHOGENS DNA PROBES - follow-up with Dr. Leonard in February 2. Screening for gonorrhea - ICD9: V74.5, ICD10: Z11.3 - as above - GC/CHLAMYDIA AMPLIF, URINE - GC/CHLAMYDIA DNA DET 3. Screening for colon cancer - ICD9: V76.51, ICD10: Z12.11 - FOBT test kit And instructionsgiven for home stool collection - 4. Screening for STD (sexually transmitted disease) - ICD9: V74.5, ICD10: Z11.3 - as above Tom Laboy CNP Prescription instructions reviewed with patient as applicable. Patient advised if symptoms do not improve or if symptoms worsen sooner, to contact their primary care physician. Potential red flag symptoms discussed with the patient. Reviewed appropriate action plan to take if red flag symptoms occur. Patient agreeable to treatment plan. CNCO Observed: 12/21/2017 Status: COMPLETED Source: [place] 12:00 AM [facility] REPOSITORY Letter Text Erick Leonard D.O. [address] [place] [address] Fani Holland [address] #: [id number] 12/21/2017 Dear Ms. Holland Ok for Symbicort instead of Dulera inhaler. Erick Leonard, DO ? The following approved medication requests have been transmitted electronically. ? Signed Prescriptions Disp Refills budesonide-formoterol (SYMBICORT) 80-4.5 mcg/actuation inhaler 1 Inhaler 3 Sig: Inhale 2 Puffs as instructed twice daily. ? ? Authorizing Provider: ERICK LEONARD ? Erick Leonard, Please do not hesitate to contact me with any questions. Sincerely, Erick Leonard D.O. electronically signed to expedite mailing ALLERGIES ALLERGIES DATE TYPE / CODE NAME / CODE REACTION SEVERITY SOURCE 12/07/2018 Drug Iodinated Vomiting Unknown Meenakshi Allergy/416 Contrast- Oral [facility] [id number]([facility] ED CT) Dye/[id number](R Repository XNORM) 12/01/2005 DRUG CODEINE Vomiting [facility] INGREDI/419 [facility] [id number](SNOM Repository ED CT) 08/31/2005 DRUG IODINE ANAPHYLAXIS [facility] INGRED/419 [facility] [id number](SNOM Repository ED CT) ENCOUNTERS ENCOUNTERS ADMIT/DISCHARGE ACCOUNT ADMITTING ENCOUNTER LOCATION SOURCE NUMBER CLASS 12/07/2018/12/07/19 [id number] [place] [facility] ing:ED Repository 09/25/2018/09/25/20 [id number] Ambulatory [address] Repository 08/03/2018/08/03/20 [id number] Ambulatory [address] Repository 08/02/2018/08/02/20 [id number] Ambulatory [address] Repository 07/19/2018/07/20/20 [id number] Ambulatory [address] Repository 02/22/2018/02/24/20 [id number] Ambulatory [address] Repository 01/12/2018/01/13/20 [id number] Ambulatory [address] Repository PAYERS PAYERS ENCOUNTER GUARANTOR PAYER SUBSCRIBER SOURCE 12/07/2018 FANI Solorzano Primary FANI Arrieta [id number] GAY Insurance:CARLOS DE JESUSOB: [place] PPOPolicy [id number] [address]Fze: [phone]) Number: Repository [phone] ) [id number] Date:[id number] [address] [place] [id number]: 12/07/2018 Secondary NOT GIVENUNK Meenakshi Insurance:SELF PAY [facility] Number: Effective Repository Date:2018-12-07
== END 2018-12-07 17:22 | disposition home or self-care (01) ==
PROVIDERS: Emergency Provider Emergency Medicine; Family Provider Student in an Organized Health Care Education/Training Program; PCP Student in an Organized Health Care Education/Training Program
DX: J44.1 Chronic obstructive pulmonary disease with (acute) exacerbation (principal); Z72.0 Tobacco use
CPT/HCPCS: 71046; 80048; 84484; 85025; 87804; 93005; 94640; 96361; 96374; 99285; J7030; A4216

== ENCOUNTER 2020-07-01 17:52 | Inpatient (IN) | payer MEDICARE, SELFPAY ==
[2020-07-01] VITALS (14 sets, daily range): BP systolic 106–194; BP diastolic 78–147; PULSE 81–111; RESP 12–31; TEMP 36.5–36.8; O2SAT 88–100; BMI 16.3
--- NOTE | 2020-07-01 18:26 | EKG12_ITS ---
Test Reason : DYSRHYTHMIA Blood Pressure : / mmHG Vent. Rate : 106 BPM Atrial Rate : 106 BPM P-R Int : 150 ms QRS Dur : 086 ms QT Int : 354 ms P-R-T Axes : 075 081 088 degrees QTc Int : 470 ms Sinus tachycardia Right atrial enlargement Borderline ECG Confirmed by DAKOTA JONES ([id number]), news assignment editor LEXUS MORIN ([id number]) on 07/04/2020 10:26:40 AM Referred By: IVA Confirmed By:DAKOTA JONES
--- NOTE | 2020-07-01 18:27 | ED.RN ---
sepsis alert at 1827. dr guzmán
--- NOTE | 2020-07-01 18:29 | ED.VISSUMM ---
- ER Visit Summary Date of Service: 07/01/20 Chief Complaint: Shortness of breath History of Present Illness: The patient is a 60 F who presents with shortness of breath that began yesterday. Patient has a history of COPD and states this feels similar to prior flareups of her COPD. EMS administered Solu-Medrol and a DuoNeb prior to arrival. Patient states her breathing is worse when she lays flat. Patient admits to a cough with some clear sputum. Patient admits to occasional rhinorrhea. Patient admits to subjective fevers. Patient admits to some dull pain in her chest bilaterally. Patient denies any sick contacts or COVID exposures. Patient does admit to decreased sense of taste and smell. Physical Examination: Vital signs showed an elevated blood pressure of 179/147, mild tachycardia of 106, tachypnea of 28, and 94% sat on room air. Patient is afebrile. Patient is in mild respiratory distress. Oral mucosa is pink and moist. Neck is supple. Trachea is midline. There is no JVD. Heart was regular and tachycardic. Lungs showed diminished sounds with expiratory wheezing bilaterally. There is somewhat labored respirations. Abdomen is soft. Bowel sounds are normal. There is no tenderness. Cranial nerves II through XII are intact. There are no focal motor or sensory deficits noted. Extremities are intact. There is no calf tenderness or edema. Test Results: EKG shows sinus tachycardia with a rate of 106. There are no acute ST or T wave changes. Portable chest x-ray was obtained. There is changes consistent with COPD but no acute cardiopulmonary process. This was interpreted by the radiologist and reviewed by myself. Basic metabolic profile showed a hyponatremia of 114 and a hypokalemia of 3.0. Chloride was low also low at 75. Lactate was normal. COVID swab is negative. Arterial blood gas was ordered and shows a pH of 7.34, PCO2 of 51, PO2 of 101, and bicarb of 27.5. CBC is within normal limits. Emergency Department Course and Treatment: Patient was started on IV fluids. Patient was started on BiPAP. Patient was given albuterol aerosols. Patient was becoming agitated while she was on BiPAP and was given a dose of Ativan. Patient is resting comfortably at this time. Case was discussed with the hospitalist, Dr. Hoang. She will admit the patient to ICU. Disposition: Admit to ICU Impression: 1. Hyponatremia 2. Hypokalemia 3. COPD exacerbation 4. Hypoxic respiratory failure Critical care time: 45 minutes. This was time spent obtaining history, performing physical examination, interpreting test results, discussion with consultants, and determining disposition. This note was generated with Elixent dictation software. It may contain incorrect words, spelling, and punctuation that were not noted in review of the chart prior to signing ED Disposition - Plan for ED Patient: Disposition: Acute Care [facility] Diagnosis: Respiratory failure with hypoxia, Hyponatremia, Hypokalemia, COPD exacerbation
[2020-07-01] MEDS: Albuterol 2.5 MG/3 ML VIAL.NEB. INHALATION ×3 (19:07)
[2020-07-01 19:12] LABS: Anion Gap 7 (5-15); BUN 15 mg/dL (7-18); BUN/Creat Ratio 26.9 RATIO (10-20); Calcium,Total 8.8 mg/dL (8.5-10.1); Chloride 75 mmol/L (98-107); Creatinine, Serum 0.56 mg/dL (0.55-1.02); EST Glomerular Filtration Rate 117 mL/min (>60); Est Glom Filt Rate - Afr Amer 142 mL/min (>60); Estimated Creatinine Clearance 79.61 ml/min; Glucose 137 mg/dL (74-106); Sodium Level 114 mmol/L (136-145)
[2020-07-01] MEDS: LORazepam 2 MG/ML Syringe 0.5 MG IV (19:18)
--- NOTE | 2020-07-01 19:37 | RAD_ITS ---
STUDY: X-RAY CHEST REASON FOR EXAM: Female, 60 years old. COPD. Emphysema. Patient states difficulty with shortness of breath over the past several days. Has not followed up with his physician since January with COVID 19. TECHNIQUE: Single AP portable view of the chest. COMPARISON: 12/07/2018. FINDINGS: The lungs are hyperexpanded. There is no focal mass or infiltrate. There is no pneumothorax. There is no demonstrated pleural abnormality. Normal size heart. Normal mediastinum and stephania. Normal visualized pulmonary arteries. There is atherosclerotic calcification of the aortic arch with tortuosity. Degenerative changes and dextroscoliosis of the thoracic spine. There is degenerative osteoarthritis of the bilateral shoulders. There is no demonstrated abnormality of the visualized soft tissue structures of the upper abdomen. RAD/Chest 1 View (Portable) IMPRESSION: No acute cardiopulmonary disease or major interval change. Electronically Signed: Scooter Bonilla DO at 19:55 EDT Tel [phone], Service support ,
--- NOTE | 2020-07-01 19:54 | CPS ---
x3 Albuterol given in total in ED
--- NOTE | 2020-07-01 19:56 | CPS ---
Pt. was using accessory muscles and tripoding in bed when I arrived. Pt. immediately placed on BiPAP (14/6 @ 25% FiO2), and she responded very well to the pressures. Pt. almost immediately stopped with the use of her accessory muscles and tripoding. Pt. currently tolerating BiPAP very well, and she has improved remarkably.
[2020-07-01 20:03] LABS: Lactic Acid 1.4 mmol/L (0.4-1.9)
[2020-07-01] MEDS: 0.9% Normal Saline 1,000 ML 1000 ML IV (21:10)
[2020-07-01] MEDS: 0.9% Normal Saline 1,000 ML 150 ML IV (21:10)
--- NOTE | 2020-07-01 21:10 | PCM.HP.STD ---
Problem List (1) Respiratory failure with hypoxia Status: Acute Qualifiers: Chronicity: acute Qualified Code(s): J96.01 - Acute respiratory failure with hypoxia (2) COPD exacerbation Status: Acute (3) Hyponatremia Status: Acute (4) Hypokalemia Status: Acute (5) Severe protein-calorie malnutrition Status: Chronic (6) Chronic obstructive lung disease Status: Chronic Qualifiers: COPD type: unspecified COPD Qualified Code(s): J44.9 - Chronic obstructive pulmonary disease, unspecified (7) Tobacco abuse disorder Status: Chronic (8) Gastroesophageal reflux disease Status: Chronic Qualifiers: Esophagitis presence: esophagitis presence not specified Qualified Code(s): K21.9 - Gastro-esophageal reflux disease without esophagitis (9) Benign hypertension Status: Chronic (10) History of cerebrovascular disease Status: Chronic Comment: remote stroke (11) Hyperlipidemia Status: Chronic Qualifiers: Hyperlipidemia type: unspecified Qualified Code(s): E78.5 - Hyperlipidemia, unspecified History of Present Illness Date of Admission: 07/01/20 Chief Complaint: Dyspnea The patient is a 60 y/o F w/ PMHx: Chronic COPD/emphysema/Asthma with ongoing Tobacco use, Anxiety, GERD, Hx CVA, HTN, HLD, OA who presents to the [facility] ED on 07/01/20 with history of grossly worsening dyspnea with wheezing, worse with exertional efforts with no recent fever, chills with concern for COPD exacerbation more severe the last 24 hours prompting eventual ED presentation no DuoNeb given aerosols and Solu-Medrol per EMS prior to ED arrival. Patient denied any recent significant alteration to her cough, alteration to sense of taste or smell, arthralgia or myalgias, nausea, emesis, abdominal cramping or diarrhea, headaches, sore throat. Work-up in the ED included T 98, heart rate 111, BP 165/103, respiratory rate 22, initially 95% on 4 L nasal cannula eventually transition to BiPAP, BMP with sodium 114, potassium 3.0, chloride 75, glucose 137, lactic acid 1.4, troponin less than 0.015, COVID testing pending, no CBC upon requested evaluation of patient secondary to BMP results, blood culture x 2 pending per ED, chest x-ray with no acute cardiopulmonary findings. In the ED patient per ED physician was using accessory muscles, tripoding therefore immediately placed on BiPAP and noted to respond well. In the ED patient ministered Ativan 0.5 mg IV x1, albuterol therapy as well as normal saline. EMS administered solumedrol. Repeat ABG pending, maintained on BIPAP. Past Medical History Past Medical History (Chronic Problems): Chronic Problems Hyperlipidemia (Chronic) Severe protein-calorie malnutrition (Chronic) Chronic obstructive lung disease (Chronic) Tobacco abuse disorder (Chronic) History of syncope (Chronic) Gastroesophageal reflux disease (Chronic) Benign hypertension (Chronic) History of cerebrovascular disease (Chronic) remote stroke Allergies Iodinated Contrast Media [Iodinated Contrast Media - IV Dye] Allergy (Verified 12/07/18 15:51) Vomiting Home Medications: Ambulatory Orders Medication Instructions Recorded Albuterol Inhaler [Ventolin Hfa 2 puff INHALATION Q4H PRN PRN 06/04/16 (SP)] Albuterol Aerosols [Ventolin 2.5 mg INHALATION Q4H PRN PRN 07/01/20 Aerosols] Aspirin/Caffeine [Back-Body Pain 2 tab PO Q6H PRN PRN 07/01/20 Reliever Caplet] Budesonide/Formoterol 160/4.5 2 puff INHALATION BID 07/01/20 [Symbicort 160/4.5 Mcg Inhaler (SP)] Diphenhydramine HCl [Benadryl 100 mg PO DAILY PRN PRN 07/01/20 Allergy] Metoprolol Succinate [Toprol Xl] 25 mg PO DAILY 07/01/20 Surgical History: tonsillectomy Psychiatric History: No pertinent psych hx 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 Tobacco Use: Cigarettes Drugs: Marijuana, - - Hx prior meth abuse, clean x 3 years. - *Family History Maternal History Items: Heart Disease Paternal History Items: Heart Disease Review of Systems Constitutional: Reports: Malaise, Weakness, Fatigue. Denies: Anorexia, Chills, Fever, Weight Change HEENT: Denies: Head Aches, Sinus Congestion, Sinus Drainage Cardiovascular: Denies: Chest Pain, Palpitations Respiratory: Reports: Shortness of Breath, Shortness of breath at rest, Shortness of breath upon exertion, Wheezing. Denies: Cough, Sputum production Gastrointestinal: Denies: Abdominal Pain, Nausea, Vomiting Genitourinary: Denies: Dysuria Musculoskeletal: Reports: Back Pain, Joint Pain. Denies: Joint Tenderness Skin: Denies: Rash, Wounds Neurological: Denies: Numbness, Tingling, Focal weakness Psychiatric: Denies: Anxiety, Depression, Homicidal Ideations, Suicidal Ideations Hematologic/ Lymphatic: Denies: Easy Bruising, Easy Bleeding VTE Information - Inpt Only VTE Present on Admission: No VTE Mechan Device Prophylaxis: SCD's VTE Pharm Prophylaxis ordered?: Yes Patient Problems: Active and Suspected Problems Respiratory failure with hypoxia (Acute) Hyponatremia (Acute) Hypokalemia (Acute) COPD exacerbation (Acute) Subjective: Seated upright in the bed, recent Ativan administration secondary to agitation with BiPAP, fatigued now, some response to questioning and discussion but easily falling back asleep. Objective: Physical Examination: General: Awakens to stimuli, intermittently alert, some orientation questions able to be addressed however patient very fatigued with recent Ativan administration, BiPAP in place, following commands, improved from initial ED presentation as had significant increased respiratory rate with accessory muscle usage upon presentation. Skin: normal color, turgor, no icterus, cyanosis. HEENT: AT/NC, EOMI, PERRLA, dry MM, BiPAP in place, no carotid bruits or JVD noted. Lungs: Diminished breath sounds throughout, greater bilateral bases, and expiratory wheezing, BiPAP in place, still some accessory muscle usage increased respiratory rate but improved from initial presentation, no obvious rales or rhonchi. Heart: Tachycardic with regular rhythm; no gallop, rub audible. Abdomen: soft, thin cachectic habitus, NTTP, ND, normal BS, no HSM. Extremities: no cyanosis, clubbing, or edema. Neurological: Awakens to stimuli, intermittently alert, oriented as noted; cognitive function not baseline intact; pupils equally reactive to light and accomodation; cranial nerves II-XII grossly normal, moving all 4 extremities but difficult examination as significant sedation following Ativan, strength accordingly severely global decrease. Psychiatric: affect appears flat, sedate, no acute evidence of depressive or anxiety feelings. - Physical Exam Vitals/I&O's: Vital Signs Temp Pulse Resp BP Pulse Ox 98 F 99 24 H 165/110 H 96 07/01/20 19:00 07/01/20 19:07 07/01/20 19:07 07/01/20 19:00 07/01/20 19:00 Oxygen Flow Rate (L/min) 4 Oxygen Delivery Method Bi-pap Weight: 106 lb 4.205 oz Body Mass Index (BMI) 20.0 Laboratory Results 07/01/20 18:00: WBC Cancelled, Corrected WBC Cancelled, RBC Cancelled, Hgb Cancelled, Hct Cancelled, MCV Cancelled, MCH Cancelled, MCHC Cancelled, RDW Std Deviation Cancelled, RDW Coeff of Raymond Cancelled, Plt Count Cancelled, MPV Cancelled, Immature Gran % (Auto) Cancelled, Neut % (Auto) Cancelled, Lymph % (Auto) Cancelled, [place] % (Auto) Cancelled, Eos % (Auto) Cancelled, Baso % (Auto) Cancelled, Absolute Neuts (auto) Cancelled, Absolute Lymphs (auto) Cancelled, Total Counted Cancelled, Neutrophils % (Manual) Cancelled, Band Neutrophils % Cancelled, Lymphocytes % (Manual) Cancelled, Monocytes % (Manual) Cancelled, Eosinophils % (Manual) Cancelled, Basophils % (Manual) Cancelled, Metamyelocytes % Cancelled, Myelocytes % Cancelled, Promyelocytes % Cancelled, Blast Cells % Cancelled, Plasma Cell % (Manual) Cancelled, Other Cells % Cancelled, Nucleated RBC % Cancelled, Nucleated RBCs/100 WBC Cancelled, Differential Comment Cancelled, Diff Path Review Cancelled, Hypersegmented Neuts Cancelled, Atypical Lymphocytes Cancelled, Reactive Lymphocytes Cancelled, Smudge Cells Cancelled, Toxic Granulation Cancelled, Toxic Vacuolation Cancelled, Dohle Bodies Cancelled, Danielle Rods Cancelled, Platelet Estimate Cancelled, Plt Morphology Comment Cancelled, RBC Morphology Cancelled, Polychromasia Cancelled, Hypochromasia Cancelled, Poikilocytosis Cancelled, Basophilic Stippling Cancelled, Anisocytosis Cancelled, Microcytosis Cancelled, Macrocytosis Cancelled, Spherocytes Cancelled, Sickle Cells Cancelled, Target Cells Cancelled, Tear Drop Cells Cancelled, Ovalocytes Cancelled, Stomatocytes Cancelled, Arellano-Gazelle Bodies Cancelled, [place] Cells Cancelled, Bite Cells Cancelled, Crenated Cell Cancelled, Acanthocytes (Spur) Cancelled, Rouleaux Cancelled, Schistocytes Cancelled 07/01/20 18:00: Sodium 114 L*, Potassium 3.0 L, Chloride 75 L, Carbon Dioxide 32.0, Anion Gap 7, BUN 15, Creatinine 0.56, Estim Creat Clear Calc 79.61, Est GFR (MDRD) Af Amer 142, Est GFR (MDRD) Non-Af 117, BUN/Creatinine Ratio 26.9 H, Glucose 137 H, Calcium 8.8, Troponin I < 0.015 07/01/20 18:48: COVID-19 (CHRISTOPHER) Pending 07/01/20 19:10: Lactic Acid 1.4 Current Medications Sodium Chloride () 1,000 mls @ 150 mls/hr IV .Q6H40M TI Last Admin: 07/01/20 21:10 Dose: 150 mls/hr Documented by: Sodium Chloride () 1,000 mls @ 1,000 mls/hr IV .Q1H ONE Stop: 07/01/20 21:30 Last Admin: 07/01/20 21:10 Dose: 1,000 mls/hr Documented by: Assessment/Plan All Active Problems Respiratory failure with hypoxia (Acute) Hyponatremia (Acute) Hypokalemia (Acute) COPD exacerbation (Acute) The patient is a 60 y/o F w/ PMHx: Chronic COPD/emphysema/Asthma with ongoing Tobacco use, Anxiety, GERD, Hx CVA, HTN, HLD, OA who presents to the [facility] ED on 07/01/20 with history of grossly worsening dyspnea with wheezing, worse with exertional efforts with no recent fever, chills with concern for COPD exacerbation more severe the last 24 hours. 1. Acute Hypoxic Respiratory Failure secondary to Acute COPD Exacerbation: In the ED patient transition to BiPAP therapy. Will admit to the ICU, repeat ABG pending, transition to supplemental oxygen as able, recent Ativan with significant sedation while in the ED therefore will defer any further sedate of therapy, continue ATC duonebs, PRN albuterol, IV methylprednisolone, HOB, IS parameters, IV Rocephin and Azithromycin pending repeat a.m. chest x-ray and availability of CBC as initial attempts failed secondary to severity of BMP findings with pending sputum cultures and urine antigens. 2. Hyponatremia, severe, unclear specific etiology, suspected hypovolemia: Admission sodium 114, denied alcohol abuse history, given no neurological symptoms i.e. seizure activity or significantly concerning symptoms associated will continue judicious normal saline administration and defer any hypertonic saline, maintain in the ICU was noted on telemetry monitoring, will obtain TSH and free T4, osmolality, urine sodium and creatinine levels as well as magnesium, obtain BMP every 2 to assure avoidance of overcorrection. May need to consider nephrology involvement. 3. Hypokalemia: Admission K+ 3.0, magnesium level requested, supplementation given, repeat level in AM. 4. Hyperglycemia: Admission glucose 137, will obtain hemoglobin A1c to be cautious. 5. History of CVA: We will continue patient aspirin, hypertensive regimen, not on statin therapy, hemoglobin A1c pending as noted. 6. Hypertension: Continue home regimen including metoprolol cautiously given acute presentation and underlying history with hold parameters as needed, PRN hydralazine. 7. Hyperlipidemia: Not on regimen, defer to outpatient. 8. Tobacco Abuse: Encouraged cessation, inpatient consultation per RT, NR if desired. 9. Severe protein calorie malnutrition: Evidenced by BMI, obvious muscle and fat loss, nutrition consulted, pending. 10. Purported polysubstance abuse history: Following admission per ICU nursing staff patient reported history of prior polysubstance abuse including methamphetamine, will obtain urine drug screen. 11. DVT prophylaxis: SCDs, Lovenox. 12. CODE STATUS: Full 13. Critical Care Time: 80 minutes, time from 21:10-22:30, were spent addressing patients acute presentation including patient's hypoxic respiratory initial presentation requiring BiPAP therapy, severe hyponatremia of unclear etiology, review of all data in collaboration with care team. Procedures: [id number] [facility] 1st Hr
--- NOTE | 2020-07-01 21:19 | ED.RN ---
lab unable to analyze CBC d/t low sodium level. cbc can be redrawn 60m after initiation of IVF (2210) per lab.
[2020-07-01 22:21] LABS: Allen Test Positive; Base Excess 2 mmol/L (-2 to +2); Bicarbonate 27.5 mmol/L (22-26); Blood Gas Specimen Type ART; FI02 25; O2 Delivery Device BiPAP; PO2 102 mmHG (75-100); SITE L Radial; SO2 97 % (95-99); Total Carbon Dioxide 29 mmol/L; pCO2 51.3 mmHg (35-45); pH 7.34 (7.35-7.45)
[2020-07-01 22:53] LABS: Absolute Lymphocyte Count 0.32 X10^3/uL (0.83-4.51); Absolute Neutrophil Count 7.1 X10^3/uL (2.0-7.7); Basophil# 0.01 X10^3/uL; Basophil% 0.1 % (0-1); Hematocrit 39.7 % (37-47); Hemoglobin 14.7 g/dL (12.0-15.0); Lymphocyte # 0.32 X10^3/ul (4.0); Lymphocyte % 4.2 % (19-41); Mean Corpuscular Hgb 30.9 pg (27.0-32.0); Mean Corpuscular Volume 83.6 fL (81-99); Mean Platelet Vol. 8.8 fl (6.2-12.0); Monocyte% 1.3 % (0-10); NRBC Flagged by Analyzer 0 % (0-5); Neutrophil # 7.12 X10^3/uL (2.7-7.7); POSITIVE DIFFERENTIAL YES; Platelet Count 241 K/mm3 (150-450); RBC Distribution Width CV 11.1 % (11.6-14.6); RBC Distribution Width SD 34.2 fl (35.1-43.9); Red Blood Count 4.75 M/mm3 (4.2-5.4); White Blood Count 7.6 K/mm3 (4.4-11.0)
[2020-07-01 22:58] LABS: Differential Indicated SCAN CRITERIA MET
[2020-07-02] VITALS (25 sets, daily range): BP systolic 101–177; BP diastolic 71–121; PULSE 83–107; RESP 12–24; TEMP 36.6–36.9; O2SAT 91–99; BMI 16.3
[2020-07-02] MEDS: 0.9% Normal Saline 1,000 ML 999 ML IV (00:03)
[2020-07-02 00:29] LABS: Hemoglobin A1c 5.5 % (3.8-5.6)
[2020-07-02] MEDS: Potassium Chloride 10mEq/100mL 10 MEQ/100 ML IV.SOLN. 100 MEQ IV BOLUS ×4 (00:32→03:43)
[2020-07-02 00:35] LABS: Bacteria 0 SEEN /hpf (None Seen); Color, Urine Yellow (Yellow); Glucose, Dipstick Normal (Normal); Ketone-Dipstick 5 mg/dl (Negative); Leukocyte Esterase-Dipstick Negative /ul (Negative); Mucous, Urine 0 SEEN /hpf (<or=2+); Nitrite-Dipstick Negative (Negative); Occult Blood-Urine Negative /ul (Negative); Protein-Dipstick Negative (Negative); Red Blood Cells-Urine 0 SEEN /hpf (0-5); Squamous Epithelial Cells - UA 0 SEEN /hpf (5-10); Urine Bilirubin Dipstick Negative (Negative); Urine Clarity Clear (Clear); Urine Urobilinogen Normal (Normal)
[2020-07-02 00:35] LABS: AST(SGOT) 29 U/L (15-37); Alanine Aminotransfer ALT/SGPT 30 U/L (13-56); Albumin, Serum 3.6 g/dL (3.2-5.0); Alkaline Phosphatase 95 U/L (45-117); Anion Gap 7 (5-15); BUN 11 mg/dL (7-18); BUN/Creat Ratio 17.1 RATIO (10-20); Bilirubin, Direct 0.34 mg/dL (0.00-0.30); Calcium,Total 8.3 mg/dL (8.5-10.1); Chloride 81 mmol/L (98-107); Creatinine, Serum 0.64 mg/dL (0.55-1.02); EST Glomerular Filtration Rate 100 mL/min (>60); Est Glom Filt Rate - Afr Amer 120 mL/min (>60); Estimated Creatinine Clearance 57.12 ml/min; Globulin 2.9 g/dL (2.2-4.2); Glucose 134 mg/dL (74-106); Magnesium 1.8 mg/dL (1.6-2.6); Phosphorus 3.1 mg/dL (2.5-4.9); Protein, Total 6.5 g/dL (6.4-8.2); Sodium Level 119 mmol/L (136-145); Thyroid Stim Hormone (TSH) 0.56 uIU/mL (0.358-3.74)
[2020-07-02 00:41] LABS: White Blood Cells 0-5 SEEN /hpf (0-5)
[2020-07-02] MEDS: 0.9% Saline Lock 10 ML Syringe IV ×3 (00:44→20:56)
[2020-07-02] MEDS: Famotidine 20 MG Tablet PO ×2 (00:44→11:14)
[2020-07-02 00:48] LABS: Urine Sodium 36 mmol/L (Not Establ.)
[2020-07-02] MEDS: 0.9% Normal Saline 1,000 ML 125 ML IV ×3 (01:01→20:55)
[2020-07-02 01:12] LABS: Amphetamine Urine VISTA NEGATIVE (<1000 ng/mL); Barbiturate Urine VISTA NEGATIVE (< 200 ng/mL); Benzodiazepine Urine VISTA NEGATIVE (< 200 ng/mL); Cocaine Urine VISTA NEGATIVE (< 300 ng/mL); Ecstacy Urine VISTA NEGATIVE (< 500 ng/mL); Methadone Urine VISTA NEGATIVE (< 300 ng/mL); PCP Urine VISTA NEGATIVE (< 25 ng/mL); THC Urine VISTA POSITIVE (< 50 ng/mL); Vista UDS pH Range 7
[2020-07-02] MEDS: Ipratropium/Albuterol Sulfate 3 ML AMPUL.NEB INHALATION ×4 (01:21→22:45)
[2020-07-02 01:30] LABS: M R Staph aureus DNA By PCR Negative (Negative); Probe Check PASS; Specimen Processing Control PASS
[2020-07-02 02:38] LABS: Anion Gap 7 (5-15); BUN 9 mg/dL (7-18); BUN/Creat Ratio 14.9 RATIO (10-20); Calcium,Total 7.1 mg/dL (8.5-10.1); Chloride 84 mmol/L (98-107); EST Glomerular Filtration Rate 107 mL/min (>60); Est Glom Filt Rate - Afr Amer 129 mL/min (>60); Estimated Creatinine Clearance 60.93 ml/min; Glucose 313 mg/dL (74-106); Potassium 3.7 mmol/L (3.5-5.1); Sodium Level 119 mmol/L (136-145)
[2020-07-02 02:46] LABS: Osmolality, Urine 207 mOsm/KG
[2020-07-02 05:08] LABS: Absolute Neutrophil Count 2.8 X10^3/uL (2.0-7.7); Hematocrit 34.1 % (37-47); Hemoglobin 12.7 g/dL (12.0-15.0); Lymphocyte % 9.6 % (19-41); Mean Corp Hgb Conc 37.2 g/dL (32-36); Mean Corpuscular Hgb 31.2 pg (27.0-32.0); Mean Corpuscular Volume 83.8 fL (81-99); Mean Platelet Vol. 8.8 fl (6.2-12.0); Monocyte# 0.07 X10^3/uL; Monocyte% 2.2 % (0-10); NRBC Flagged by Analyzer 0 % (0-5); Neutrophil # 2.75 X10^3/uL (2.7-7.7); Neutrophil % 87.9 % (47-70); POSITIVE DIFFERENTIAL YES; POSITIVE MORPHOLOGY YES; Platelet Count 204 K/mm3 (150-450); RBC Distribution Width CV 11.4 % (11.6-14.6); RBC Distribution Width SD 34.5 fl (35.1-43.9); Red Blood Count 4.07 M/mm3 (4.2-5.4); White Blood Count 3.1 K/mm3 (4.4-11.0)
[2020-07-02 05:20] LABS: Anion Gap 10 (5-15); BUN 8 mg/dL (7-18); BUN/Creat Ratio 16.8 RATIO (10-20); Calcium,Total 7.2 mg/dL (8.5-10.1); Chloride 84 mmol/L (98-107); Creatinine, Serum 0.48 mg/dL (0.55-1.02); EST Glomerular Filtration Rate 141 mL/min (>60); Est Glom Filt Rate - Afr Amer 171 mL/min (>60); Estimated Creatinine Clearance 76.17 ml/min; Glucose 258 mg/dL (74-106); Potassium 3.4 mmol/L (3.5-5.1); Sodium Level 122 mmol/L (136-145)
[2020-07-02 05:35] LABS: Differential Indicated SCAN CRITERIA MET
--- NOTE | 2020-07-02 05:55 | RAD_ITS ---
STUDY: X-RAY CHEST REASON FOR EXAM: Female, 60 years old. Dyspnea TECHNIQUE: Single AP portable view of the chest. COMPARISON: Comparison is made with prior examination dated 07/01/2020. FINDINGS: EKG electrodes are seen. Hyperinflation. Mild increased interstitial markings are seen at the lung bases suggestive of a linear atelectasis. There is a 6 mm calcified granuloma in the right lower lobe. There is blunting of the left costophrenic angle. Normal size heart. Normal mediastinum and stephania. Normal visualized pulmonary arteries. There is atherosclerotic calcification of the aortic arch with tortuosity. There is a dextroscoliosis of the thoracic spine. Normal visualized ribs, clavicles, and shoulders. There is no demonstrated abnormality of the visualized soft tissue structures of the upper abdomen. RAD/Chest 1 View (Portable) IMPRESSION: Hyperinflation. Mild increased markings at the lung bases suggestive of atelectasis with blunting of the left costophrenic angle. Electronically Signed: Giacomo Lopez, at 8:12 EDT , Service support ,
--- NOTE | 2020-07-02 05:56 | CT_ITS ---
STUDY: CT CHEST WITH T WITHOUT CONTRAST REASON FOR EXAM: Female, 60 years old. HYPONATREMIA/POSS. LUNG CANCER. Hx of COPD, HTN, CVA. RADIATION DOSAGE (If Supplied By Facility): CTDIvol = ( 2.87 ) mGy, DLP = ( 100.87 ) mGycm TECHNIQUE: Transaxial imaging was performed pre-and post contrast administration of IV 65mL [id number]-[id number]. Multiplanar coronal and sagittal images were reformatted. Individualized dose optimization techniques were used for this CT. COMPARISON: None. FINDINGS: Hyperinflation. Emphysematous changes worse in the upper lobes with multiple small bulla formation. No pulmonary mass lesion is seen. Minimal increased linear markings at the left lung base. There is an 8.9 mm calcified granuloma in the right lower lobe posteriorly. There is no demonstrated pleural abnormality. There are calcifications of the coronary arteries. Normal mediastinum. Normal hilar regions. Normal enhanced and unenhanced pulmonary arteries. There is atherosclerotic calcification of the aortic arch with tortuosity and elongation of the aortic arch and descending thoracic aorta. There is demineralization of the thoracic spine. Increased kyphosis. Dextroscoliosis. There is no demonstrated abnormality of the visualized upper abdomen. CT/Chest W/WO Contrast IMPRESSION: Emphysematous changes. Calcified granuloma in the right lower lobe. No acute abnormality is seen. Electronically Signed: Giacomo Lopez, at 8:25 EDT , Service support ,
[2020-07-02 06:49] LABS: ALB/GLOB Ratio 1.1 RATIO (0.9-2.4); AST(SGOT) 24 U/L (15-37); Alanine Aminotransfer ALT/SGPT 27 U/L (13-56); Albumin, Serum 3.3 g/dL (3.2-5.0); Alkaline Phosphatase 86 U/L (45-117); Anion Gap 8 (5-15); BUN 8 mg/dL (7-18); BUN/Creat Ratio 14.6 RATIO (10-20); Chloride 83 mmol/L (98-107); Creatinine, Serum 0.55 mg/dL (0.55-1.02); EST Glomerular Filtration Rate 120 mL/min (>60); Est Glom Filt Rate - Afr Amer 145 mL/min (>60); Estimated Creatinine Clearance 66.47 ml/min; Globulin 2.9 g/dL (2.2-4.2); Glucose 146 mg/dL (74-106); Potassium 3.4 mmol/L (3.5-5.1); Protein, Total 6.2 g/dL (6.4-8.2); Sodium Level 121 mmol/L (136-145)
[2020-07-02] MEDS: DiphenhydrAMINE 25 MG Capsule 50 MG PO (06:51)
--- NOTE | 2020-07-02 08:11 | PCM.CON.CC ---
Reason for Consult Date of Consultation: 07/02/20 Reason for Consultation: Acute respiratory failure, hyponatremia History of Present Illness: The patient is a 60-year-old female, with a history as outlined below, who presented to the emergency department on July 01 with complaints of progressive shortness of breath over the last 2 days. The patient does have a self-reported history of COPD of unknown severity. She does not currently follow with a screener and blender, nor has she ever undergone pulmonary function studies. She does have an extensive smoking history of upwards of 1.5 packs of cigarettes per day. Although the patient does have Symbicort and Ventolin listed on her outpatient home medication list, she readily admits that she has been out of her inhalers for quite some time. In addition to shortness of breath, she does report the presence of a cough, which has been intermittently productive of yellow sputum. However, the patient does report that she normally has a chronic cough at her baseline. On presentation to the emergency department, the patient was noted to be afebrile and hypertensive, with an initial blood pressure documented to be 179/147. The patient was mildly tachycardic and tachypneic as well. Laboratory evaluation revealed a normal white blood cell count. Chemistry profile was notable for a sodium of 114, potassium of 3.0, chloride of 75 and lactate of 1.4. Troponin was negative. TSH was within normal limits. Urine analysis was unremarkable. Toxicology screen was positive for cannabinoids. Coronavirus PCR was negative. MRSA screen was negative. The patient did require the initiation of BiPAP therapy while in the emergency department. She was provided with nebulized bronchodilators and IV steroids. The patient was subsequently admitted to the medical intensive care unit for further management. Overnight, the patient was able to be weaned from BiPAP. In fact, she is maintaining appropriate oxygen saturations on room air as of this morning. Past Medical History Past Medical History (Chronic Problems): Chronic Problems Hyperlipidemia (Chronic) Severe protein-calorie malnutrition (Chronic) Chronic obstructive lung disease (Chronic) Tobacco abuse disorder (Chronic) History of syncope (Chronic) Gastroesophageal reflux disease (Chronic) Benign hypertension (Chronic) History of cerebrovascular disease (Chronic) remote stroke Allergies Iodinated Contrast Media [Iodinated Contrast Media - IV Dye] Allergy (Verified 12/07/18 15:51) Vomiting Home Medications: Ambulatory Orders Medication Instructions Recorded Albuterol Inhaler [Ventolin Hfa 2 puff INHALATION Q4H PRN PRN 06/04/16 (SP)] Albuterol Aerosols [Ventolin 2.5 mg INHALATION Q4H PRN PRN 07/01/20 Aerosols] Aspirin/Caffeine [Back-Body Pain 2 tab PO Q6H PRN PRN 07/01/20 Reliever Caplet] Budesonide/Formoterol 160/4.5 2 puff INHALATION BID 07/01/20 [Symbicort 160/4.5 Mcg Inhaler (SP)] Diphenhydramine HCl [Benadryl 100 mg PO DAILY PRN PRN 07/01/20 Allergy] Metoprolol Succinate [Toprol Xl] 25 mg PO DAILY 07/01/20 Surgical History: tonsillectomy Psychiatric History: No pertinent psych hx 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 Tobacco Use: Cigarettes Drugs: Marijuana, - - Hx prior meth abuse, clean x 3 years. - *Family History Maternal History Items: Heart Disease Paternal History Items: Heart Disease Review of Systems Constitutional: Reports: Weight Change. Denies: Chills, Fever Eyes: Denies: Blurred vision, Double vision HEENT: Denies: Head Aches, Sinus Congestion, Sinus Drainage Cardiovascular: Denies: Chest Pain, Palpitations Respiratory: Reports: Cough, Shortness of Breath, Sputum production Gastrointestinal: Denies: Abdominal Pain, Nausea, Vomiting Genitourinary: Denies: Dysuria Musculoskeletal: Denies: Joint Pain, Joint Tenderness Skin: Denies: Rash, Wounds Neurological: Denies: Numbness, Tingling, Focal weakness Psychiatric: Reports: Anxiety Hematologic/ Lymphatic: Denies: Easy Bruising, Easy Bleeding Patient Problems: Active and Suspected Problems Respiratory failure with hypoxia (Acute) Hyponatremia (Acute) Hypokalemia (Acute) COPD exacerbation (Acute) Objective: The patient's most recent lab work, culture data and imaging studies have all been personally reviewed. Respiratory viral panel was negative. Strep and urine Legionella antigens were negative. Blood and sputum cultures are pending. - Physical Exam Vitals/I&O's: Vital Signs Temp Pulse Resp BP Pulse Ox 98.4 F 93 18 137/92 H 96 07/02/20 05:00 07/02/20 07:00 07/02/20 07:00 07/02/20 07:00 07/02/20 07:00 Oxygen Flow Rate (L/min) 2 Oxygen Delivery Method Room Air Weight: 86 lb 6.739 oz Body Mass Index (BMI) 16.3 Intake and Output for Last 24 Hours 06/30/20 07/01/20 07/02/20 23:59 23:59 23:59 Intake Total 1000 / 1000 2709.02 / 2709.02 Output Total 300 / 300 Balance 1000 / 1000 2409.02 / 2409.02 General: Alert, Cooperative, No apparent distress HEENT: Atraumatic, PERRLA, Normocephalic Oral: No Gingival or Mucosal Lesions/ Ulcerations Neck: Supple, No Nodes, Trachea Midline Lungs: - - Globally diminished air movement bilaterally with prolonged expiratory phase and wheezes noted. Increased AP diameter. Cardiovascular: Regular rate, Regular Rhythm, Normal S1, Normal S2 Abdomen: Bowel Sounds Present, Soft, Non Tender Extremities: No clubbing, No cyanosis, No edema Skin: No breakdown Musculoskeletal: Cachexia, Muscle Wasting Lymphatic: No Cervical, Supraclavicular, or Inguinal Adenopathy Neurological: Cranial nerves II-XII grossly intact, Neuro grossly intact Psych/Mental Status: Normal Affect, Appropriate Labs (Last 48 Hours) 07/01/20 07/01/20 07/01/20 18:00 18:00 18:48 WBC Cancelled Corrected WBC Cancelled RBC Cancelled Hgb Cancelled Hct Cancelled MCV Cancelled MCH Cancelled MCHC Cancelled RDW Std Deviation Cancelled RDW Coeff of Raymond Cancelled Plt Count Cancelled MPV Cancelled Immature Gran % (Auto) Cancelled Neut % (Auto) Cancelled Lymph % (Auto) Cancelled [place] % (Auto) Cancelled Eos % (Auto) Cancelled Baso % (Auto) Cancelled Absolute Neuts (auto) Cancelled Absolute Lymphs (auto) Cancelled Total Counted Cancelled Neutrophils % (Manual) Cancelled Band Neutrophils % Cancelled Lymphocytes % (Manual) Cancelled Monocytes % (Manual) Cancelled Eosinophils % (Manual) Cancelled Basophils % (Manual) Cancelled Metamyelocytes % Cancelled Myelocytes % Cancelled Promyelocytes % Cancelled Blast Cells % Cancelled Plasma Cell % (Manual) Cancelled Other Cells % Cancelled Nucleated RBC % Cancelled Nucleated RBCs/100 WBC Cancelled Differential Comment Cancelled Diff Path Review Cancelled Hypersegmented Neuts Cancelled Atypical Lymphocytes Cancelled Reactive Lymphocytes Cancelled Smudge Cells Cancelled Toxic Granulation Cancelled Toxic Vacuolation Cancelled Dohle Bodies Cancelled Danielle Rods Cancelled Platelet Estimate Cancelled Plt Morphology Comment Cancelled RBC Morphology Cancelled Polychromasia Cancelled Hypochromasia Cancelled Poikilocytosis Cancelled Basophilic Stippling Cancelled Anisocytosis Cancelled Microcytosis Cancelled Macrocytosis Cancelled Spherocytes Cancelled Sickle Cells Cancelled Target Cells Cancelled Tear Drop Cells Cancelled Ovalocytes Cancelled Stomatocytes Cancelled [place] Bodies Cancelled [place] Cells Cancelled Bite Cells Cancelled Crenated Cell Cancelled Acanthocytes (Spur) Cancelled Rouleaux Cancelled Schistocytes Cancelled Specimen Type Sample Site pH Bicarbonate Actual Total CO2 Base Excess O2 Saturation O2 % ABG pCO2 ABG pO2 Remy Test O2 Delivery Device Sodium 114 L* Potassium 3.0 L Chloride 75 L Carbon Dioxide 32.0 Anion Gap 7 BUN 15 Creatinine 0.56 Estim Creat Clear Calc 79.61 Est GFR (MDRD) Af Amer 142 Est GFR (MDRD) Non-Af 117 BUN/Creatinine Ratio 26.9 H Glucose 137 H Hemoglobin A1c Lactic Acid Calcium 8.8 Phosphorus Magnesium Total Bilirubin Direct Bilirubin AST ALT Alkaline Phosphatase Troponin I < 0.015 Total Protein Albumin Globulin Albumin/Globulin Ratio TSH Urine Color Urine Clarity Urine pH Ur Specific [place] Urine Protein Urine Glucose (UA) Urine Ketones Urine Occult Blood Urine Nitrite Urine Bilirubin Urine Urobilinogen Ur Leukocyte Esterase Urine RBC Urine WBC Ur Squamous Epith Cells Urine Bacteria Urine Mucus Urine Osmolality Ur Random Sodium Urine Creatinine Urine Opiates Screen Urine Methadone Screen Ur Barbiturates Screen Ur Phencyclidine Scrn Ur Amphetamines Screen U Methamphetamin-MDMA U Benzodiazepines Scrn Urine Cocaine Screen U Cannabinoids Screen Ur Drug Screen Comment Ethyl Alcohol COVID-19 (CHRISTOPHER) Negative MRSA (PCR) 07/01/20 07/01/20 07/01/20 19:10 22:12 22:40 WBC 7.6 Corrected WBC RBC 4.75 Hgb 14.7 Hct 39.7 MCV 83.6 MCH 30.9 MCHC 37.0 H RDW Std Deviation 34.2 L RDW Coeff of Raymond 11.1 L Plt Count 241 MPV 8.8 Immature Gran % (Auto) 0.400 Neut % (Auto) 94.0 H Lymph % (Auto) 4.2 L [place] % (Auto) 1.3 Eos % (Auto) 0.0 Baso % (Auto) 0.1 Absolute Neuts (auto) 7.1 Absolute Lymphs (auto) 0.32 L Total Counted Neutrophils % (Manual) Band Neutrophils % Lymphocytes % (Manual) Monocytes % (Manual) Eosinophils % (Manual) Basophils % (Manual) Metamyelocytes % Myelocytes % Promyelocytes % Blast Cells % Plasma Cell % (Manual) Other Cells % Nucleated RBC % 0 Nucleated RBCs/100 WBC Differential Comment Diff Path Review Hypersegmented Neuts Atypical Lymphocytes Reactive Lymphocytes Smudge Cells Toxic Granulation Toxic Vacuolation Dohle Bodies Danielle Rods Platelet Estimate Plt Morphology Comment RBC Morphology Polychromasia Hypochromasia Poikilocytosis Basophilic Stippling Anisocytosis Microcytosis Macrocytosis Spherocytes Sickle Cells Target Cells Tear Drop Cells Ovalocytes Stomatocytes [place] Bodies Silvia Cells Bite Cells Crenated Cell Acanthocytes (Spur) Rouleaux Schistocytes Specimen Type ART Sample Site L Radial pH 7.34 L Bicarbonate Actual 27.5 H Total CO2 29 Base Excess 2 O2 Saturation 97 O2 % 25 ABG pCO2 51.3 H ABG pO2 102 H Remy Test Positive O2 Delivery Device BiPAP Sodium Potassium Chloride Carbon Dioxide Anion Gap BUN Creatinine Estim Creat Clear Calc Est GFR (MDRD) Af Amer Est GFR (MDRD) Non-Af BUN/Creatinine Ratio Glucose Hemoglobin A1c Lactic Acid 1.4 Calcium Phosphorus Magnesium Total Bilirubin Direct Bilirubin AST ALT Alkaline Phosphatase Troponin I Total Protein Albumin Globulin Albumin/Globulin Ratio TSH Urine Color Urine Clarity Urine pH Ur Specific [place] Urine Protein Urine Glucose (UA) Urine Ketones Urine Occult Blood Urine Nitrite Urine Bilirubin Urine Urobilinogen Ur Leukocyte Esterase Urine RBC Urine WBC Ur Squamous Epith Cells Urine Bacteria Urine Mucus Urine Osmolality Ur Random Sodium Urine Creatinine Urine Opiates Screen Urine Methadone Screen Ur Barbiturates Screen Ur Phencyclidine Scrn Ur Amphetamines Screen U Methamphetamin-MDMA U Benzodiazepines Scrn Urine Cocaine Screen U Cannabinoids Screen Ur Drug Screen Comment Ethyl Alcohol COVID-19 (CHRISTOPHER) MRSA (PCR) 07/01/20 07/01/20 07/01/20 23:50 23:50 23:50 WBC Corrected WBC RBC Hgb Hct MCV MCH MCHC RDW Std Deviation RDW Coeff of Raymond Plt Count MPV Immature Gran % (Auto) Neut % (Auto) Lymph % (Auto) [place] % (Auto) Eos % (Auto) Baso % (Auto) Absolute Neuts (auto) Absolute Lymphs (auto) Total Counted Neutrophils % (Manual) Band Neutrophils % Lymphocytes % (Manual) Monocytes % (Manual) Eosinophils % (Manual) Basophils % (Manual) Metamyelocytes % Myelocytes % Promyelocytes % Blast Cells % Plasma Cell % (Manual) Other Cells % Nucleated RBC % Nucleated RBCs/100 WBC Differential Comment Diff Path Review Hypersegmented Neuts Atypical Lymphocytes Reactive Lymphocytes Smudge Cells Toxic Granulation Toxic Vacuolation Dohle Bodies Danielle Rods Platelet Estimate Plt Morphology Comment RBC Morphology Polychromasia Hypochromasia Poikilocytosis Basophilic Stippling Anisocytosis Microcytosis Macrocytosis Spherocytes Sickle Cells Target Cells Tear Drop Cells Ovalocytes Stomatocytes [place] Bodies Silvia Cells Bite Cells Crenated Cell Acanthocytes (Spur) Rouleaux Schistocytes Specimen Type Sample Site pH Bicarbonate Actual Total CO2 Base Excess O2 Saturation O2 % ABG pCO2 ABG pO2 Remy Test O2 Delivery Device Sodium 119 L* Potassium 3.0 L Chloride 81 L Carbon Dioxide 31.0 Anion Gap 7 BUN 11 Creatinine 0.64 Estim Creat Clear Calc 57.12 Est GFR (MDRD) Af Amer 120 Est GFR (MDRD) Non-Af 100 BUN/Creatinine Ratio 17.1 Glucose 134 H Hemoglobin A1c 5.5 Lactic Acid Calcium 8.3 L Phosphorus 3.1 Magnesium 1.8 Total Bilirubin 0.90 Direct Bilirubin 0.34 H AST 29 ALT 30 Alkaline Phosphatase 95 Troponin I Total Protein 6.5 Albumin 3.6 Globulin 2.9 Albumin/Globulin Ratio TSH 0.56 Urine Color Urine Clarity Urine pH Ur Specific [place] Urine Protein Urine Glucose (UA) Urine Ketones Urine Occult Blood Urine Nitrite Urine Bilirubin Urine Urobilinogen Ur Leukocyte Esterase Urine RBC Urine WBC Ur Squamous Epith Cells Urine Bacteria Urine Mucus Urine Osmolality Ur Random Sodium Urine Creatinine Urine Opiates Screen Urine Methadone Screen Ur Barbiturates Screen Ur Phencyclidine Scrn Ur Amphetamines Screen U Methamphetamin-MDMA U Benzodiazepines Scrn Urine Cocaine Screen U Cannabinoids Screen Ur Drug Screen Comment Ethyl Alcohol 9.0 COVID-19 (CHRISTOPHER) MRSA (PCR) 07/01/20 07/02/20 07/02/20 23:59 00:29 00:30 WBC Corrected WBC RBC Hgb Hct MCV MCH MCHC RDW Std Deviation RDW Coeff of Raymond Plt Count MPV Immature Gran % (Auto) Neut % (Auto) Lymph % (Auto) [place] % (Auto) Eos % (Auto) Baso % (Auto) Absolute Neuts (auto) Absolute Lymphs (auto) Total Counted Neutrophils % (Manual) Band Neutrophils % Lymphocytes % (Manual) Monocytes % (Manual) Eosinophils % (Manual) Basophils % (Manual) Metamyelocytes % Myelocytes % Promyelocytes % Blast Cells % Plasma Cell % (Manual) Other Cells % Nucleated RBC % Nucleated RBCs/100 WBC Differential Comment Diff Path Review Hypersegmented Neuts Atypical Lymphocytes Reactive Lymphocytes Smudge Cells Toxic Granulation Toxic Vacuolation Dohle Bodies Danielle Rods Platelet Estimate Plt Morphology Comment RBC Morphology Polychromasia Hypochromasia Poikilocytosis Basophilic Stippling Anisocytosis Microcytosis Macrocytosis Spherocytes Sickle Cells Target Cells Tear Drop Cells Ovalocytes Stomatocytes [place] Bodies [place] Cells Bite Cells Crenated Cell Acanthocytes (Spur) Rouleaux Schistocytes Specimen Type Sample Site pH Bicarbonate Actual Total CO2 Base Excess O2 Saturation O2 % ABG pCO2 ABG pO2 Remy Test O2 Delivery Device Sodium Potassium Chloride Carbon Dioxide Anion Gap BUN Creatinine Estim Creat Clear Calc Est GFR (MDRD) Af Amer Est GFR (MDRD) Non-Af BUN/Creatinine Ratio Glucose Hemoglobin A1c Lactic Acid Calcium Phosphorus Magnesium Total Bilirubin Direct Bilirubin AST ALT Alkaline Phosphatase Troponin I Total Protein Albumin Globulin Albumin/Globulin Ratio TSH Urine Color Urine Clarity Urine pH Ur Specific [place] Urine Protein Urine Glucose (UA) Urine Ketones Urine Occult Blood Urine Nitrite Urine Bilirubin Urine Urobilinogen Ur Leukocyte Esterase Urine RBC Urine WBC Ur Squamous Epith Cells Urine Bacteria Urine Mucus Urine Osmolality 207 Ur Random Sodium Urine Creatinine 17.40 Urine Opiates Screen Urine Methadone Screen Ur Barbiturates Screen Ur Phencyclidine Scrn Ur Amphetamines Screen U Methamphetamin-MDMA U Benzodiazepines Scrn Urine Cocaine Screen U Cannabinoids Screen Ur Drug Screen Comment Ethyl Alcohol COVID-19 (CHRISTOPHER) MRSA (PCR) Negative 07/02/20 07/02/20 07/02/20 00:30 00:30 00:30 WBC Corrected WBC RBC Hgb Hct MCV MCH MCHC RDW Std Deviation RDW Coeff of Raymond Plt Count MPV Immature Gran % (Auto) Neut % (Auto) Lymph % (Auto) [place] % (Auto) Eos % (Auto) Baso % (Auto) Absolute Neuts (auto) Absolute Lymphs (auto) Total Counted Neutrophils % (Manual) Band Neutrophils % Lymphocytes % (Manual) Monocytes % (Manual) Eosinophils % (Manual) Basophils % (Manual) Metamyelocytes % Myelocytes % Promyelocytes % Blast Cells % Plasma Cell % (Manual) Other Cells % Nucleated RBC % Nucleated RBCs/100 WBC Differential Comment Diff Path Review Hypersegmented Neuts Atypical Lymphocytes Reactive Lymphocytes Smudge Cells Toxic Granulation Toxic Vacuolation Dohle Bodies Danielle Rods Platelet Estimate Plt Morphology Comment RBC Morphology Polychromasia Hypochromasia Poikilocytosis Basophilic Stippling Anisocytosis Microcytosis Macrocytosis Spherocytes Sickle Cells Target Cells Tear Drop Cells Ovalocytes Stomatocytes [place] Bodies [place] Cells Bite Cells Crenated Cell Acanthocytes (Spur) Rouleaux Schistocytes Specimen Type Sample Site pH Bicarbonate Actual Total CO2 Base Excess O2 Saturation O2 % ABG pCO2 ABG pO2 Remy Test O2 Delivery Device Sodium Potassium Chloride Carbon Dioxide Anion Gap BUN Creatinine Estim Creat Clear Calc Est GFR (MDRD) Af Amer Est GFR (MDRD) Non-Af BUN/Creatinine Ratio Glucose Hemoglobin A1c Lactic Acid Calcium Phosphorus Magnesium Total Bilirubin Direct Bilirubin AST ALT Alkaline Phosphatase Troponin I Total Protein Albumin Globulin Albumin/Globulin Ratio TSH Urine Color Yellow Urine Clarity Clear Urine pH 7.0 Ur Specific [place] 1.010 Urine Protein Negative Urine Glucose (UA) Normal Urine Ketones 5 H Urine Occult Blood Negative Urine Nitrite Negative Urine Bilirubin Negative Urine Urobilinogen Normal Ur Leukocyte Esterase Negative Urine RBC 0 SEEN Urine WBC 0-5 SEEN Ur Squamous Epith Cells 0 SEEN Urine Bacteria 0 SEEN Urine Mucus 0 SEEN Urine Osmolality Ur Random Sodium 36 Urine Creatinine Urine Opiates Screen NEGATIVE Urine Methadone Screen NEGATIVE Ur Barbiturates Screen NEGATIVE Ur Phencyclidine Scrn NEGATIVE Ur Amphetamines Screen NEGATIVE U Methamphetamin-MDMA NEGATIVE U Benzodiazepines Scrn NEGATIVE Urine Cocaine Screen NEGATIVE U Cannabinoids Screen POSITIVE H Ur Drug Screen Comment Ethyl Alcohol COVID-19 (CHRISTOPHER) MRSA (PCR) 07/02/20 07/02/20 07/02/20 02:10 04:50 04:50 WBC 3.1 L Corrected WBC RBC 4.07 L Hgb 12.7 Hct 34.1 L MCV 83.8 MCH 31.2 MCHC 37.2 H RDW Std Deviation 34.5 L RDW Coeff of Raymond 11.4 L Plt Count 204 MPV 8.8 Immature Gran % (Auto) 0.300 Neut % (Auto) 87.9 H Lymph % (Auto) 9.6 L [place] % (Auto) 2.2 Eos % (Auto) 0.0 Baso % (Auto) 0.0 Absolute Neuts (auto) 2.8 Absolute Lymphs (auto) 0.30 L Total Counted Neutrophils % (Manual) Band Neutrophils % Lymphocytes % (Manual) Monocytes % (Manual) Eosinophils % (Manual) Basophils % (Manual) Metamyelocytes % Myelocytes % Promyelocytes % Blast Cells % Plasma Cell % (Manual) Other Cells % Nucleated RBC % 0 Nucleated RBCs/100 WBC Differential Comment COMMENT Diff Path Review May foll Hypersegmented Neuts Atypical Lymphocytes Reactive Lymphocytes Smudge Cells Toxic Granulation Toxic Vacuolation Dohle Bodies Danielle Rods Platelet Estimate Plt Morphology Comment RBC Morphology Polychromasia Hypochromasia Poikilocytosis Basophilic Stippling Anisocytosis Microcytosis Macrocytosis Spherocytes Sickle Cells Target Cells Tear Drop Cells Ovalocytes Stomatocytes [place] Bodies [place] Cells Bite Cells Crenated Cell Acanthocytes (Spur) Rouleaux Schistocytes Specimen Type Sample Site pH Bicarbonate Actual Total CO2 Base Excess O2 Saturation O2 % ABG pCO2 ABG pO2 Remy Test O2 Delivery Device Sodium 119 L* 122 L Potassium 3.7 3.4 L Chloride 84 L 84 L Carbon Dioxide 28.0 28.0 Anion Gap 7 10 BUN 9 8 Creatinine 0.60 0.48 L Estim Creat Clear Calc 60.93 76.17 Est GFR (MDRD) Af Amer 129 171 Est GFR (MDRD) Non-Af 107 141 BUN/Creatinine Ratio 14.9 16.8 Glucose 313 H 258 H Hemoglobin A1c Lactic Acid Calcium 7.1 L 7.2 L Phosphorus Magnesium Total Bilirubin Direct Bilirubin AST ALT Alkaline Phosphatase Troponin I Total Protein Albumin Globulin Albumin/Globulin Ratio TSH Urine Color Urine Clarity Urine pH Ur Specific [place] Urine Protein Urine Glucose (UA) Urine Ketones Urine Occult Blood Urine Nitrite Urine Bilirubin Urine Urobilinogen Ur Leukocyte Esterase Urine RBC Urine WBC Ur Squamous Epith Cells Urine Bacteria Urine Mucus Urine Osmolality Ur Random Sodium Urine Creatinine Urine Opiates Screen Urine Methadone Screen Ur Barbiturates Screen Ur Phencyclidine Scrn Ur Amphetamines Screen U Methamphetamin-MDMA U Benzodiazepines Scrn Urine Cocaine Screen U Cannabinoids Screen Ur Drug Screen Comment Ethyl Alcohol COVID-19 (CHRISTOPHER) MRSA (PCR) 07/02/20 06:15 WBC Corrected WBC RBC Hgb Hct MCV MCH MCHC RDW Std Deviation RDW Coeff of Raymond Plt Count MPV Immature Gran % (Auto) Neut % (Auto) Lymph % (Auto) [place] % (Auto) Eos % (Auto) Baso % (Auto) Absolute Neuts (auto) Absolute Lymphs (auto) Total Counted Neutrophils % (Manual) Band Neutrophils % Lymphocytes % (Manual) Monocytes % (Manual) Eosinophils % (Manual) Basophils % (Manual) Metamyelocytes % Myelocytes % Promyelocytes % Blast Cells % Plasma Cell % (Manual) Other Cells % Nucleated RBC % Nucleated RBCs/100 WBC Differential Comment Diff Path Review Hypersegmented Neuts Atypical Lymphocytes Reactive Lymphocytes Smudge Cells Toxic Granulation Toxic Vacuolation Dohle Bodies Danielle Rods Platelet Estimate Plt Morphology Comment RBC Morphology Polychromasia Hypochromasia Poikilocytosis Basophilic Stippling Anisocytosis Microcytosis Macrocytosis Spherocytes Sickle Cells Target Cells Tear Drop Cells Ovalocytes Stomatocytes [place] Bodies [place] Cells Bite Cells Crenated Cell Acanthocytes (Spur) Rouleaux Schistocytes Specimen Type Sample Site pH Bicarbonate Actual Total CO2 Base Excess O2 Saturation O2 % ABG pCO2 ABG pO2 Remy Test O2 Delivery Device Sodium 121 L Potassium 3.4 L Chloride 83 L Carbon Dioxide 30.0 Anion Gap 8 BUN 8 Creatinine 0.55 Estim Creat Clear Calc 66.47 Est GFR (MDRD) Af Amer 145 Est GFR (MDRD) Non-Af 120 BUN/Creatinine Ratio 14.6 Glucose 146 H Hemoglobin A1c Lactic Acid Calcium 8.0 L Phosphorus Magnesium Total Bilirubin 0.50 Direct Bilirubin AST 24 ALT 27 Alkaline Phosphatase 86 Troponin I Total Protein 6.2 L Albumin 3.3 Globulin 2.9 Albumin/Globulin Ratio 1.1 TSH Urine Color Urine Clarity Urine pH Ur Specific [place] Urine Protein Urine Glucose (UA) Urine Ketones Urine Occult Blood Urine Nitrite Urine Bilirubin Urine Urobilinogen Ur Leukocyte Esterase Urine RBC Urine WBC Ur Squamous Epith Cells Urine Bacteria Urine Mucus Urine Osmolality Ur Random Sodium Urine Creatinine Urine Opiates Screen Urine Methadone Screen Ur Barbiturates Screen Ur Phencyclidine Scrn Ur Amphetamines Screen U Methamphetamin-MDMA U Benzodiazepines Scrn Urine Cocaine Screen U Cannabinoids Screen Ur Drug Screen Comment Ethyl Alcohol COVID-19 (CHRISTOPHER) MRSA (PCR) Microbiology 07/01/20 23:55 Mucosa - Nasopharyngeal Respiratory Panel (PCR) - Final 07/02/20 00:30 Urine, Clean Catch Streptococcus pneumoniae Antigen (M - Final 07/02/20 00:30 Urine, Clean Catch Legionella Antigen - Final Clinical Impression(s) from Imaging Studies Chest X-Ray 07/01/20 19:37 IMPRESSION: No acute cardiopulmonary disease or major interval change. Electronically Signed: Scooter Bonilla, DO at 19:55 EDT Tel [phone], Service support , Chest X-Ray 07/02/20 05:55 IMPRESSION: Hyperinflation. Mild increased markings at the lung bases suggestive of atelectasis with blunting of the left costophrenic angle. Electronically Signed: Giacomo Lopez, at 8:12 EDT , Service support , Current Medications Acetaminophen (Tylenol) 650 mg RECTAL Q4H PRN PRN PRN Reason: Pain Score 1-10/Temp > 100.7 F Acetaminophen (Tylenol) 650 mg PO Q6H PRN PRN PRN Reason: Pain Score 1-10/Temp > 100.7 F Al Hydroxide/Mg Hydroxide (Mylanta Ii) 30 ml PO Q6H PRN PRN PRN Reason: Gastric Burning Albuterol Sulfate (Ventolin Aerosols) 2.5 mg INHALATION Q2H PRN PRN PRN Reason: Dyspnea, wheezing Albuterol/Ipratropium (Duoneb) 3 ml INHALATION Q4HWA.RT [facility] Last Admin: 07/02/20 01:21 Dose: 3 ml Documented by: Aspirin (Aspirin, Baby) 81 mg PO DAILY@0800 [facility] Enoxaparin Sodium (Lovenox) 40 mg SC DAILY [facility] Famotidine (Pepcid) 20 mg PO BID [facility] Last Admin: 07/02/20 00:44 Dose: 20 mg Documented by: Guaifenesin (Robitussin) 10 ml PO Q4H PRN PRN PRN Reason: COUGH Hydralazine HCl (Apresoline Iv) 10 mg IV Q4H PRN PRN PRN Reason: SBP > 160 Ceftriaxone Sodium 2 gm/ (Sodium Chloride) 50 mls @ 100 mls/hr IV Q24@2200 [facility] Last Infusion: 07/02/20 01:08 Dose: Infused Documented by: Azithromycin 500 mg/ Dextrose 255 mls @ 250 mls/hr IV Q24@2200 [facility] Last Infusion: 07/02/20 02:30 Dose: Infused Documented by: Sodium Chloride () 1,000 mls @ 125 mls/hr IV .Q8H [facility] Last Admin: 07/02/20 01:01 Dose: 125 mls/hr Documented by: Sodium Chloride () 250 mls @ 15 mls/hr IV .[id number] PRN PRN Reason: Saline Flush Sodium Chloride () 250 mls @ 15 mls/hr IV .[id number] PRN PRN Reason: Additional IVPB Infusion Magnesium Hydroxide (Milk Of Magnesia) 30 ml PO DAILY PRN PRN PRN Reason: Constipation Melatonin (Melatonin) 3 mg PO QHS PRN PRN PRN Reason: INSOMNIA Methylprednisolone (Solu-Medrol) 40 mg IV Q8 [facility] Last Admin: 07/02/20 05:27 Dose: 40 mg Documented by: Methylprednisolone (Medrol) 32 mg PO Q12H [facility] Stop: 07/02/20 17:59 Last Admin: 07/02/20 06:45 Dose: Not Given Documented by: Metoprolol Succinate (Toprol Xl (Beta Od[place])) 25 mg PO DAILY [facility] Morphine Sulfate () 2 mg IV Q3H PRN PRN PRN Reason: Pain Score 6-10/10 Nicotine (Nicoderm Cq (Pbkc)) 21 mg TRANSDERM. DAILY [facility] Last Admin: 07/02/20 01:05 Dose: 21 mg Documented by: Nitroglycerin (Nitrostat) 0.4 mg SUBLINGUAL Q5M PRN PRN Reason: CARDIAC/CHEST PAIN Nutritional Formula (Lactose Free) (Ensure Enlive) 120 ml PO 4X/DAY [facility] Ondansetron HCl (Zofran) 4 mg IV Q8H PRN PRN PRN Reason: NAUSEA/VOMITING Oxycodone HCl (Oxyir) 5 mg PO Q4H PRN PRN PRN Reason: Pain Score 4-5/10 Prochlorperazine Edisylate (Compazine Iv) 5 mg IV Q4H PRN PRN PRN Reason: Breakthrough Nausea/Vomiting Psyllium Hydrophilic Mucilloid (Metamucil) 1 packet PO DAILY PRN PRN PRN Reason: Constipation Senna/Docusate Sodium (Senokot-S, Rekha-Colace) 2 tablet PO BID PRN PRN PRN Reason: Constipation Sodium Chloride () 10 - 40 ml IV UD PRN PRN Reason: SALINE FLUSH Last Admin: 07/02/20 00:44 Dose: 20 ml Documented by: Throat Lozenges (Cepacol Sore Throat Lozenge) 1 lozenge MUCOUS MEM Q2H PRN PRN PRN Reason: SORE THROAT Assessment/Plan Active and Suspected Problems Respiratory failure with hypoxia (Acute) Hyponatremia (Acute) Hypokalemia (Acute) COPD exacerbation (Acute) RECOMMENDATIONS: 1. Continue scheduled bronchodilators and IV steroids. 2. Encourage incentive spirometer use and mobilize patient as tolerated. 3. Okay to discontinue antimicrobials. 4. Start nicotine replacement therapy while admitted to the hospital. 5. Perform walking oximetry study prior to consideration for discharge home. 6. The patient should ideally follow-up in the pulmonary medicine clinic within 2 weeks of discharge. 7. The patient is medically stable for transfer out of the intensive care unit. IMPRESSIONS: 1. Acute hypoxemic respiratory failure secondary to presumptive COPD with exacerbation Likely precipitated by noncompliance with previously prescribed maintenance inhaler regimen. The patient apparently ran out of her inhalers sometime ago. She does have an extensive smoking history, but has never been formally evaluated with pulmonary function studies to assess the severity of her underlying obstructive lung disease. CT chest completed this morning only revealed evidence of bilateral emphysematous changes without focal findings to suggest infection. Therefore, antimicrobials can be discontinued from my perspective. We will plan to continue the patient on scheduled bronchodilators along with IV steroids. She has been weaned at this time from noninvasive mechanical ventilatory support. Continue to encourage incentive spirometer use while in bed. Perform walking oximetry study prior to consideration for discharge home. 2. Hyponatremia/hypochloremia/hypokalemia I do suspect that this is likely due to hypovolemia. The patient has responded appropriately to gentle IV fluid hydration. 3. History of tobacco dependency I personally spent 5 minutes discussing the deleterious effects of continued tobacco use with the patient, including modalities which could be utilized to achieve a smoke-free lifestyle. Nicotine replacement therapy will be offered to the patient while admitted to the hospital. I would recommend close outpatient pulmonary follow-up. This note was generated with [employer] dictation software. It may contain incorrect words, spelling, and punctuation that were not noted in checking the note before signing. Inpatient E&M: 61235 Init Hosp L3 - Behavior Interventions Behavior Intervention: 96306 Smoking Cessation 3-10 min
[2020-07-02] MEDS: Aspirin 81 MG TAB.CHEW PO (11:12)
[2020-07-02] MEDS: Enoxaparin 40 MG/0.4 ML Syringe SC (11:13)
[2020-07-02] MEDS: Metoprolol(XL)Succ 25 MG Tablet PO (11:14)
--- NOTE | 2020-07-02 12:40 | CASEMGMT ---
RN CM Assessment Note Intro role of CM to patient in room. Demographics, PCP verified. Pt is awake, alert and able to participate in assessment. She is sitting in chair in room. Presentation: shortness of breath Diagnosis: COPD exacerbation PCP: Dr. Colon Insurance: [employer] Medicare PPO Preferred Pharmacy: [facility] Prescription Benefit: yes LNOK: Daughter Angelique Li Living Arrangements: Lives with daughter who assists with care taking. Patient states her daughter helps with bathing, dressing, meal preparation and transportation. DME: patient does not use home oxygen and states she does not use ambulatory DME HHC: none SNF: none Patient DC Goals: Home DC Plan: Home on discharge with daughter to support. PT/OT evaluations pending. Contact CM for any concerns/needs that may arise. Thierno WHITNEY RN ACM
--- NOTE | 2020-07-02 13:12 | PCM.PN.HOSP ---
Patient Problems: Active and Suspected Problems Respiratory failure with hypoxia (Acute) Hyponatremia (Acute) Hypokalemia (Acute) COPD exacerbation (Acute) Reason for Visit: SOB Subjective: Off all o2. Minimal SOB, NO wheezing. Minimal nonproductive cough. No fever/chills. No CP. No LE edema. Pt still smokes cigarettes and marijuana. 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 She was out of her COPD meds. Vitals/I&O's: Vital Signs Temp Pulse Resp BP Pulse Ox 97.8 F 102 H 18 136/82 H 93 07/02/20 12:00 07/02/20 12:00 07/02/20 12:00 07/02/20 12:00 07/02/20 12:00 Oxygen Flow Rate (L/min) 2 Oxygen Delivery Method Room Air Weight: 86 lb 6.739 oz Body Mass Index (BMI) 16.3 Intake and Output for Last 24 Hours 06/30/20 07/01/20 07/02/20 23:59 23:59 23:59 Intake Total 1000 / 1000 3701.94 / 3701.94 Output Total 300 / 300 Balance 1000 / 1000 3401.94 / 3401.94 General: Alert, Oriented x3, Cooperative, - - cachectic HEENT: Atraumatic, PERRLA, EOMI, Normocephalic Neck: Supple, No JVD, Negative Carotid Bruits Lungs: Clear to auscultation Cardiovascular: Regular rate, No murmurs Abdomen: Bowel Sounds Present, Soft, Non Tender Extremities: No edema, Capillary Refill Less than 3 Seconds Skin: No rashes, No breakdown Musculoskeletal: No Tenderness to Palpation of Joints or Extremities Neurological: Cranial nerves II-XII grossly intact Psych/Mental Status: Normal Affect, Appropriate, Alert and oriented to time, place, person, mood and affect Microbiology Past 72 Hours 07/02/20 00:30 Sputum, Expectorated/Coughed Gram Stain - Final 07/01/20 23:55 Mucosa - Nasopharyngeal Respiratory Panel (PCR) - Final 07/02/20 00:30 Urine, Clean Catch Streptococcus pneumoniae Antigen (M - Final 07/02/20 00:30 Urine, Clean Catch Legionella Antigen - Final Laboratory Results 07/01/20 18:00: WBC Cancelled, Corrected WBC Cancelled, RBC Cancelled, Hgb Cancelled, Hct Cancelled, MCV Cancelled, MCH Cancelled, MCHC Cancelled, RDW Std Deviation Cancelled, RDW Coeff of Raymond Cancelled, Plt Count Cancelled, MPV Cancelled, Immature Gran % (Auto) Cancelled, Neut % (Auto) Cancelled, Lymph % (Auto) Cancelled, Rolette % (Auto) Cancelled, Eos % (Auto) Cancelled, Baso % (Auto) Cancelled, Absolute Neuts (auto) Cancelled, Absolute Lymphs (auto) Cancelled, Total Counted Cancelled, Neutrophils % (Manual) Cancelled, Band Neutrophils % Cancelled, Lymphocytes % (Manual) Cancelled, Monocytes % (Manual) Cancelled, Eosinophils % (Manual) Cancelled, Basophils % (Manual) Cancelled, Metamyelocytes % Cancelled, Myelocytes % Cancelled, Promyelocytes % Cancelled, Blast Cells % Cancelled, Plasma Cell % (Manual) Cancelled, Other Cells % Cancelled, Nucleated RBC % Cancelled, Nucleated RBCs/100 WBC Cancelled, Differential Comment Cancelled, Diff Path Review Cancelled, Hypersegmented Neuts Cancelled, Atypical Lymphocytes Cancelled, Reactive Lymphocytes Cancelled, Smudge Cells Cancelled, Toxic Granulation Cancelled, Toxic Vacuolation Cancelled, Dohle Bodies Cancelled, Danielle Rods Cancelled, Platelet Estimate Cancelled, Plt Morphology Comment Cancelled, RBC Morphology Cancelled, Polychromasia Cancelled, Hypochromasia Cancelled, Poikilocytosis Cancelled, Basophilic Stippling Cancelled, Anisocytosis Cancelled, Microcytosis Cancelled, Macrocytosis Cancelled, Spherocytes Cancelled, Sickle Cells Cancelled, Target Cells Cancelled, Tear Drop Cells Cancelled, Ovalocytes Cancelled, Stomatocytes Cancelled, Arellano-Chireno Bodies Cancelled, [place] Cells Cancelled, Bite Cells Cancelled, Crenated Cell Cancelled, Acanthocytes (Spur) Cancelled, Rouleaux Cancelled, Schistocytes Cancelled 07/01/20 18:00: Sodium 114 L*, Potassium 3.0 L, Chloride 75 L, Carbon Dioxide 32.0, Anion Gap 7, BUN 15, Creatinine 0.56, Estim Creat Clear Calc 79.61, Est GFR (MDRD) Af Amer 142, Est GFR (MDRD) Non-Af 117, BUN/Creatinine Ratio 26.9 H, Glucose 137 H, Calcium 8.8, Troponin I < 0.015 07/01/20 18:48: COVID-19 (CHRISTOPHER) Negative 07/01/20 19:10: Lactic Acid 1.4 07/01/20 22:12: Specimen Type ART, Sample Site L Radial, pH 7.34 L, Bicarbonate Actual 27.5 H, Total CO2 29, Base Excess 2, O2 Saturation 97, O2 % 25, ABG pCO2 51.3 H, ABG pO2 102 H, Remy Test Positive, O2 Delivery Device BiPAP 07/01/20 22:40: WBC 7.6, RBC 4.75, Hgb 14.7, Hct 39.7, MCV 83.6, MCH 30.9, MCHC 37.0 H, RDW Std Deviation 34.2 L, RDW Coeff of Raymond 11.1 L, Plt Count 241, MPV 8.8, Immature Gran % (Auto) 0.400, Neut % (Auto) 94.0 H, Lymph % (Auto) 4.2 L, Rolette % (Auto) 1.3, Eos % (Auto) 0.0, Baso % (Auto) 0.1, Absolute Neuts (auto) 7.1, Absolute Lymphs (auto) 0.32 L, Nucleated RBC % 0 07/01/20 23:50: Sodium 119 L*, Potassium 3.0 L, Chloride 81 L, Carbon Dioxide 31.0, Anion Gap 7, BUN 11, Creatinine 0.64, Estim Creat Clear Calc 57.12, Est GFR (MDRD) Af Amer 120, Est GFR (MDRD) Non-Af 100, BUN/Creatinine Ratio 17.1, Glucose 134 H, Calcium 8.3 L, Phosphorus 3.1, Magnesium 1.8, Total Bilirubin 0.90, Direct Bilirubin 0.34 H, AST 29, ALT 30, Alkaline Phosphatase 95, Total Protein 6.5, Albumin 3.6, Globulin 2.9, TSH 0.56 07/01/20 23:50: Ethyl Alcohol 9.0 07/01/20 23:50: Hemoglobin A1c 5.5 07/01/20 23:59: MRSA (PCR) Negative 07/02/20 00:29: Urine Osmolality 207 07/02/20 00:30: Urine Creatinine 17.40 07/02/20 00:30: Urine Color Yellow, Urine Clarity Clear, Urine pH 7.0, Ur Specific [place] 1.010, Urine Protein Negative, Urine Glucose (UA) Normal, Urine Ketones 5 H, Urine Occult Blood Negative, Urine Nitrite Negative, Urine Bilirubin Negative, Urine Urobilinogen Normal, Ur Leukocyte Esterase Negative, Urine RBC 0 SEEN, Urine WBC 0-5 SEEN, Ur Squamous Epith Cells 0 SEEN, Urine Bacteria 0 SEEN, Urine Mucus 0 SEEN 07/02/20 00:30: Ur Random Sodium 36 07/02/20 00:30: Urine Opiates Screen NEGATIVE, Urine Methadone Screen NEGATIVE, Ur Barbiturates Screen NEGATIVE, Ur Phencyclidine Scrn NEGATIVE, Ur Amphetamines Screen NEGATIVE, U Methamphetamin-MDMA NEGATIVE, U Benzodiazepines Scrn NEGATIVE, Urine Cocaine Screen NEGATIVE, U Cannabinoids Screen POSITIVE H, Ur Drug Screen Comment 07/02/20 02:10: Sodium 119 L*, Potassium 3.7, Chloride 84 L, Carbon Dioxide 28.0, Anion Gap 7, BUN 9, Creatinine 0.60, Estim Creat Clear Calc 60.93, Est GFR (MDRD) Af Amer 129, Est GFR (MDRD) Non-Af 107, BUN/Creatinine Ratio 14.9, Glucose 313 H, Calcium 7.1 L 07/02/20 04:50: Sodium 122 L, Potassium 3.4 L, Chloride 84 L, Carbon Dioxide 28.0, Anion Gap 10, BUN 8, Creatinine 0.48 L, Estim Creat Clear Calc 76.17, Est GFR (MDRD) Af Amer 171, Est GFR (MDRD) Non-Af 141, BUN/Creatinine Ratio 16.8, Glucose 258 H, Calcium 7.2 L 07/02/20 04:50: WBC 3.1 L, RBC 4.07 L, Hgb 12.7, Hct 34.1 L, MCV 83.8, MCH 31.2, MCHC 37.2 H, RDW Std Deviation 34.5 L, RDW Coeff of Raymond 11.4 L, Plt Count 204, MPV 8.8, Immature Gran % (Auto) 0.300, Neut % (Auto) 87.9 H, Lymph % (Auto) 9.6 L, Rolette % (Auto) 2.2, Eos % (Auto) 0.0, Baso % (Auto) 0.0, Absolute Neuts (auto) 2.8, Absolute Lymphs (auto) 0.30 L, Nucleated RBC % 0, Differential Comment COMMENT, Diff Path Review March07/02/20 06:15: Sodium 121 L, Potassium 3.4 L, Chloride 83 L, Carbon Dioxide 30.0, Anion Gap 8, BUN 8, Creatinine 0.55, Estim Creat Clear Calc 66.47, Est GFR (MDRD) Af Amer 145, Est GFR (MDRD) Non-Af 120, BUN/Creatinine Ratio 14.6, Glucose 146 H, Calcium 8.0 L, Total Bilirubin 0.50, AST 24, ALT 27, Alkaline Phosphatase 86, Total Protein 6.2 L, Albumin 3.3, Globulin 2.9, Albumin/Globulin Ratio 1.1 Current Medications Acetaminophen (Tylenol) 650 mg PO Q6H PRN PRN PRN Reason: Pain Score 1-10/Temp > 100.7 F Albuterol Sulfate (Ventolin Aerosols) 2.5 mg INHALATION Q2H PRN PRN PRN Reason: Dyspnea, wheezing Albuterol/Ipratropium (Duoneb) 3 ml INHALATION Q4HWA.RT [facility] Last Admin: 07/02/20 10:34 Dose: 3 ml Documented by: Enoxaparin Sodium (Lovenox) 40 mg SC DAILY [facility] Last Admin: 07/02/20 11:13 Dose: 40 mg Documented by: Guaifenesin (Robitussin) 10 ml PO Q4H PRN PRN PRN Reason: COUGH Sodium Chloride () 1,000 mls @ 125 mls/hr IV .Q8H [facility] Last Infusion: 07/02/20 11:00 Dose: 125 mls/hr Documented by: Sodium Chloride () 250 mls @ 15 mls/hr IV .[id number] PRN PRN Reason: Saline Flush Sodium Chloride () 250 mls @ 15 mls/hr IV .[id number] PRN PRN Reason: Additional IVPB Infusion Methylprednisolone (Solu-Medrol) 20 mg IV Q8 [facility] Metoprolol Succinate (Toprol Xl (Beta [place])) 25 mg PO DAILY [facility] Last Admin: 07/02/20 11:14 Dose: 25 mg Documented by: Nicotine (Nicoderm Cq (Pbkc)) 21 mg TRANSDERM. DAILY [facility] Last Admin: 07/02/20 11:14 Dose: 21 mg Documented by: Nutritional Formula (Lactose Free) (Ensure Enlive) 120 ml PO 4X/DAY [facility] Last Admin: 07/02/20 11:19 Dose: 120 ml Documented by: Ondansetron HCl (Zofran) 4 mg IV Q8H PRN PRN PRN Reason: NAUSEA/VOMITING Sodium Chloride () 10 - 40 ml IV UD PRN PRN Reason: SALINE FLUSH Last Admin: 07/02/20 00:44 Dose: 20 ml Documented by: STROKE Vital Signs/Narrative: Vital Signs Temp Pulse Resp BP Pulse Ox 07/02/20 12:00 97.8 F 102 H 18 136/82 H 93 07/02/20 11:14 98 164/90 H 07/02/20 11:00 98 07/02/20 10:34 97 21 H Medical Necessity - Tobacco Use Smoking Status: Current every day smoker Tobacco Use: Cigarettes Assessment/Plan All Active Problems Respiratory failure with hypoxia (Acute) Hyponatremia (Acute) Hypokalemia (Acute) COPD exacerbation (Acute) 1. Acute hypoxic respiratory failure 2/2 COPD exacerbation/medication noncompliance - off Bipap. Now ok on room air. She does not use home o2. Lungs no wheezing but diminished. Continue steroids and aerosols. Will need Rxs at DC. Pulm following. Continue abx for 24 hours then if no sign of infection dc. No fever/leukocytosis. Covid and MRSA negative. Blood cx pending and sputum cx neg, urine antigens negative. CT chest with emphysema. Calcified granuloma RLL. 2. Hyponatremia - suspect hypovolemic. Continue NaCl. Replace K, mag. 3. HTN - improved. continue metoprolol. 4. 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 Hx CVA - not on baby aspirin daily or statin. 6. Nicotine abuse, marijuana abuse - pt needs complete smoking cessation. Nicotine patch ordered. 7. Hyperglycemia - 2/2 steroids. A1C 5.5. DVT ppx: lovenox DC planning: tx to PCU today. This patient was seen by Thanh Alvarez PA-C under the supervision of Dr. Longoria.
[2020-07-02 13:19] LABS: Pathologist Review Reviewed
--- NOTE | 2020-07-02 15:12 | CASEMGMT ---
SW completed a Palliative Screening tool on patient. She scored a 2. SW did not talk with patient about Palliative Care at this time. Jumana DESAI MSW
--- NOTE | 2020-07-02 15:22 | NT.THERAPY_ITS ---
Nutrition Therapy Report - History Nutrition Services has been consulted to:: Manage nutrient details of diet order Current diet / nutrition support order:: regular; 120mL ensure enlive 4x/day - Anthropometric Measurements Height:: 5 ft 1.02 in Weight:: 39.2 kg Body Mass Index (BMI):: 16.3 - Relevant Labs Relevant Labs:: WBC 3.1 K/mm3 (4.4-11.0) L 07/02/20 04:50 RBC 4.07 M/mm3 (4.2-5.4) L 07/02/20 04:50 Hct 34.1 % (37-47) L 07/02/20 04:50 MCHC 37.2 g/dL (32-36) H 07/02/20 04:50 RDW Std Deviation 34.5 fl (35.1-43.9) L 07/02/20 04:50 RDW Coeff of Raymond 11.4 % (11.6-14.6) L 07/02/20 04:50 Neut % (Auto) 87.9 % (47-70) H 07/02/20 04:50 Lymph % (Auto) 9.6 % (19-41) L 07/02/20 04:50 Absolute Lymphs (auto) 0.30 X10^3/uL (0.83-4.51) L 07/02/20 04:50 Sodium 121 mmol/L (136-145) L 07/02/20 06:15 Potassium 3.4 mmol/L (3.5-5.1) L 07/02/20 06:15 Chloride 83 mmol/L (98-107) L 07/02/20 06:15 Creatinine 0.48 mg/dL (0.55-1.02) L 07/02/20 04:50 BUN/Creatinine Ratio 26.9 RATIO (10-20) H 07/01/20 18:00 Glucose 146 mg/dL (74-106) H 07/02/20 06:15 Calcium 8.0 mg/dL (8.5-10.1) L 07/02/20 06:15 Direct Bilirubin 0.34 mg/dL (0.00-0.30) H 07/01/20 23:50 Total Protein 6.2 g/dL (6.4-8.2) L 07/02/20 06:15 - Assessment Food / Nutrition-Related History:: 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 Describes fair PO intake at lunch this date. Says UBW ~100# but has not weighed self recently. CBW 86.4#-13.6% wt loss unknown timeframe. NFPA indicates mild muscle wasting/fat loss in clavicle, temporal, and scapula region. Normally drinks Ensure or Boost at home, otherwise no special diet. - Nutrition Diagnosis Problem / Etiology / Signs & Symptoms (PES):: Chronic, moderate malnutrition re lated to inadequate energy intake d/t chronic resp. failure as evidenced by PO intake <75% of estimated needs for greater than 1 month, mild muscle wasting/fat loss in clavicle, temporal, and scapula region. Evidence of Malnutrition Exists:: Yes Moderate PCM:: Chronic Illness - Nutrition Intervention Nutrition Prescription:: [id number] calories/day, 47-57 g protein/day - Food / Nutrient Delivery Interventions Summary of nutrition intervention:: Will continue regular diet and fortify foods when possible. Continue Ensure w/ medpass. Pt w/ no questions at this time. Nutrition support ordered as / adjusted to:: regular diet, fortified foods Nutrition education provided?: No - MNT Monitoring Further MNT monitoring and evaluation required?: Yes MNT Follow-up in:: 3-5 days
--- NOTE | 2020-07-02 16:01 | CHAPLAIN ---
Type of Pastoral Visit _x__ Initial Visit ___ Follow-up Visit ___ On-call Visit ___ General Patient Visit ___ Spiritual Assessment ___ Family Conference ___ Bereavement ___ Rapid Response ___ Code Blue ___ Other (describe below) Pastoral Care Referral From _x__ Patient ___ Family ___ Nurse ___ Physician ___ Motorcycle Assembler ___ Tool Procurement Coordinator ___ Other (describe below) Sacrament/Intervention _x__ Active listening ___ Anointing ___ Orthodox ___ Bereavement ___ Communion ___ Gabbie exploration ___ ___ Life review _x__ Prayer ___ Reconciliation ___ Sacrament of Sick _x__ Supportive presence ___ Wedding ___ Other (describe below) Pastoral Comments
[2020-07-02] MEDS: Acetaminophen 325 MG Tablet 650 MG PO (21:00)
[2020-07-02] MEDS: guaiFENesin 10 ML UDC (200MG/10ML) PO (21:00)
[2020-07-02] MEDS: Menthol/Lanolin/Calamine/Znox 113 GM Tube 1 APPLIC TOPICAL (22:32)
[2020-07-03] VITALS (13 sets, daily range): BP systolic 142–151; BP diastolic 88–98; PULSE 100–111; RESP 18–20; TEMP 36.6–37.4; O2SAT 84–99
[2020-07-03] MEDS: 0.9% Normal Saline 1,000 ML 125 ML IV (04:20)
[2020-07-03] MEDS: Albuterol 2.5 MG/3 ML VIAL.NEB. INHALATION (04:32)
[2020-07-03] MEDS: 0.9% Saline Lock 10 ML Syringe IV ×2 (05:14→09:47)
[2020-07-03] MEDS: Menthol/Lanolin/Calamine/Znox 113 GM Tube 1 APPLIC TOPICAL (05:15)
[2020-07-03] MEDS: guaiFENesin 10 ML UDC (200MG/10ML) PO (05:17)
[2020-07-03] MEDS: Acetaminophen 325 MG Tablet 650 MG PO (05:19)
[2020-07-03 06:56] LABS: Anion Gap 9 (5-15); BUN 8 mg/dL (7-18); BUN/Creat Ratio 13.7 RATIO (10-20); Calcium,Total 8.1 mg/dL (8.5-10.1); Chloride 90 mmol/L (98-107); Creatinine, Serum 0.58 mg/dL (0.55-1.02); EST Glomerular Filtration Rate 111 mL/min (>60); Est Glom Filt Rate - Afr Amer 135 mL/min (>60); Estimated Creatinine Clearance 67.38 ml/min; Glucose 125 mg/dL (74-106); Potassium 3.5 mmol/L (3.5-5.1); Sodium Level 124 mmol/L (136-145)
[2020-07-03] MEDS: Ipratropium/Albuterol Sulfate 3 ML AMPUL.NEB INHALATION ×2 (06:59→11:34)
--- NOTE | 2020-07-03 07:00 | CPS ---
decreased pt to 1Lpm.
--- NOTE | 2020-07-03 08:25 | PN_ITS ---
Patient Problems: Active and Suspected Problems Respiratory failure with hypoxia (Acute) Hyponatremia (Acute) Hypokalemia (Acute) COPD exacerbation (Acute) Subjective: The patient was seen and examined at the bedside this morning. Events from the last 24 hours have been reviewed. The patient is currently afebrile, hemodynamically stable and maintaining appropriate oxygen saturations on 1 L/min via nasal cannula. Shortness of breath has improved. Objective: The patient's most recent lab work, culture data and imaging studies have all been personally reviewed. Infectious work-up has been unrevealing to date. - Physical Exam Vitals/I&O's: Vital Signs Temp Pulse Resp BP Pulse Ox 98 F 104 H 18 151/88 H 98 07/03/20 02:47 07/03/20 07:00 07/03/20 07:00 07/03/20 02:47 07/03/20 07:01 Oxygen Flow Rate (L/min) 1 Oxygen Delivery Method Nasal Cannula Weight: 92 lb 5.979 oz Body Mass Index (BMI) 16.3 Intake and Output for Last 24 Hours 07/01/20 07/02/20 07/03/20 23:59 23:59 23:59 Intake Total 1000 / 1000 5045.69 / 5045.69 1227.08 / 1227.08 Output Total 300 / 300 Balance 1000 / 1000 4745.69 / 4745.69 1227.08 / 1227.08 General: Alert, Cooperative, No apparent distress HEENT: Atraumatic, Normocephalic Oral: No Gingival or Mucosal Lesions/ Ulcerations Neck: Supple, No Nodes, Trachea Midline Lungs: No rhonchi, No wheeze, No rales, Diminished, - - Prolonged expiratory phase Cardiovascular: Regular rate, Regular Rhythm, Normal S1, Normal S2 Abdomen: Bowel Sounds Present, Soft, Non Tender Extremities: No clubbing, No cyanosis, No edema Skin: No breakdown Musculoskeletal: Cachexia, Muscle Wasting Lymphatic: No Cervical, Supraclavicular, or Inguinal Adenopathy Neurological: Cranial nerves II-XII grossly intact, Neuro grossly intact Psych/Mental Status: Normal Affect, Appropriate Labs (Last 48 Hours) 07/01/20 07/01/20 07/01/20 18:00 18:00 18:48 WBC Cancelled Corrected WBC Cancelled RBC Cancelled Hgb Cancelled Hct Cancelled MCV Cancelled MCH Cancelled MCHC Cancelled RDW Std Deviation Cancelled RDW Coeff of Raymond Cancelled Plt Count Cancelled MPV Cancelled Immature Gran % (Auto) Cancelled Neut % (Auto) Cancelled Lymph % (Auto) Cancelled [place] % (Auto) Cancelled Eos % (Auto) Cancelled Baso % (Auto) Cancelled Absolute Neuts (auto) Cancelled Absolute Lymphs (auto) Cancelled Total Counted Cancelled Neutrophils % (Manual) Cancelled Band Neutrophils % Cancelled Lymphocytes % (Manual) Cancelled Monocytes % (Manual) Cancelled Eosinophils % (Manual) Cancelled Basophils % (Manual) Cancelled Metamyelocytes % Cancelled Myelocytes % Cancelled Promyelocytes % Cancelled Blast Cells % Cancelled Plasma Cell % (Manual) Cancelled Other Cells % Cancelled Nucleated RBC % Cancelled Nucleated RBCs/100 WBC Cancelled Differential Comment Cancelled Diff Path Review Cancelled Hypersegmented Neuts Cancelled Atypical Lymphocytes Cancelled Reactive Lymphocytes Cancelled Smudge Cells Cancelled Toxic Granulation Cancelled Toxic Vacuolation Cancelled Dohle Bodies Cancelled Danielle Rods Cancelled Platelet Estimate Cancelled Plt Morphology Comment Cancelled RBC Morphology Cancelled Polychromasia Cancelled Hypochromasia Cancelled Poikilocytosis Cancelled Basophilic Stippling Cancelled Anisocytosis Cancelled Microcytosis Cancelled Macrocytosis Cancelled Spherocytes Cancelled Sickle Cells Cancelled Target Cells Cancelled Tear Drop Cells Cancelled Ovalocytes Cancelled Stomatocytes Cancelled [place] Bodies Cancelled Silvia Cells Cancelled Bite Cells Cancelled Crenated Cell Cancelled Acanthocytes (Spur) Cancelled Rouleaux Cancelled Schistocytes Cancelled Specimen Type Sample Site pH Bicarbonate Actual Total CO2 Base Excess O2 Saturation O2 % ABG pCO2 ABG pO2 Remy Test O2 Delivery Device Sodium 114 L* Potassium 3.0 L Chloride 75 L Carbon Dioxide 32.0 Anion Gap 7 BUN 15 Creatinine 0.56 Estim Creat Clear Calc 79.61 Est GFR (MDRD) Af Amer 142 Est GFR (MDRD) Non-Af 117 BUN/Creatinine Ratio 26.9 H Glucose 137 H Hemoglobin A1c Lactic Acid Calcium 8.8 Phosphorus Magnesium Total Bilirubin Direct Bilirubin AST ALT Alkaline Phosphatase Troponin I < 0.015 Total Protein Albumin Globulin Albumin/Globulin Ratio TSH Urine Color Urine Clarity Urine pH Ur Specific Wilson Urine Protein Urine Glucose (UA) Urine Ketones Urine Occult Blood Urine Nitrite Urine Bilirubin Urine Urobilinogen Ur Leukocyte Esterase Urine RBC Urine WBC Ur Squamous Epith Cells Urine Bacteria Urine Mucus Urine Osmolality Ur Random Sodium Urine Creatinine Urine Opiates Screen Urine Methadone Screen Ur Barbiturates Screen Ur Phencyclidine Scrn Ur Amphetamines Screen U Methamphetamin-MDMA U Benzodiazepines Scrn Urine Cocaine Screen U Cannabinoids Screen Ur Drug Screen Comment Ethyl Alcohol COVID-19 (CHRISTOPHER) Negative MRSA (PCR) 07/01/20 07/01/20 07/01/20 19:10 22:12 22:40 WBC 7.6 Corrected WBC RBC 4.75 Hgb 14.7 Hct 39.7 MCV 83.6 MCH 30.9 MCHC 37.0 H RDW Std Deviation 34.2 L RDW Coeff of Raymond 11.1 L Plt Count 241 MPV 8.8 Immature Gran % (Auto) 0.400 Neut % (Auto) 94.0 H Lymph % (Auto) 4.2 L [place] % (Auto) 1.3 Eos % (Auto) 0.0 Baso % (Auto) 0.1 Absolute Neuts (auto) 7.1 Absolute Lymphs (auto) 0.32 L Total Counted Neutrophils % (Manual) Band Neutrophils % Lymphocytes % (Manual) Monocytes % (Manual) Eosinophils % (Manual) Basophils % (Manual) Metamyelocytes % Myelocytes % Promyelocytes % Blast Cells % Plasma Cell % (Manual) Other Cells % Nucleated RBC % 0 Nucleated RBCs/100 WBC Differential Comment Diff Path Review Hypersegmented Neuts Atypical Lymphocytes Reactive Lymphocytes Smudge Cells Toxic Granulation Toxic Vacuolation Dohle Bodies Danielle Rods Platelet Estimate Plt Morphology Comment RBC Morphology Polychromasia Hypochromasia Poikilocytosis Basophilic Stippling Anisocytosis Microcytosis Macrocytosis Spherocytes Sickle Cells Target Cells Tear Drop Cells Ovalocytes Stomatocytes [place] Bodies [place] Cells Bite Cells Crenated Cell Acanthocytes (Spur) Rouleaux Schistocytes Specimen Type ART Sample Site L Radial pH 7.34 L Bicarbonate Actual 27.5 H Total CO2 29 Base Excess 2 O2 Saturation 97 O2 % 25 ABG pCO2 51.3 H ABG pO2 102 H Remy Test Positive O2 Delivery Device BiPAP Sodium Potassium Chloride Carbon Dioxide Anion Gap BUN Creatinine Estim Creat Clear Calc Est GFR (MDRD) Af Amer Est GFR (MDRD) Non-Af BUN/Creatinine Ratio Glucose Hemoglobin A1c Lactic Acid 1.4 Calcium Phosphorus Magnesium Total Bilirubin Direct Bilirubin AST ALT Alkaline Phosphatase Troponin I Total Protein Albumin Globulin Albumin/Globulin Ratio TSH Urine Color Urine Clarity Urine pH Ur Specific [place] Urine Protein Urine Glucose (UA) Urine Ketones Urine Occult Blood Urine Nitrite Urine Bilirubin Urine Urobilinogen Ur Leukocyte Esterase Urine RBC Urine WBC Ur Squamous Epith Cells Urine Bacteria Urine Mucus Urine Osmolality Ur Random Sodium Urine Creatinine Urine Opiates Screen Urine Methadone Screen Ur Barbiturates Screen Ur Phencyclidine Scrn Ur Amphetamines Screen U Methamphetamin-MDMA U Benzodiazepines Scrn Urine Cocaine Screen U Cannabinoids Screen Ur Drug Screen Comment Ethyl Alcohol COVID-19 (CHRISTOPHER) MRSA (PCR) 07/01/20 07/01/20 07/01/20 23:50 23:50 23:50 WBC Corrected WBC RBC Hgb Hct MCV MCH MCHC RDW Std Deviation RDW Coeff of Raymond Plt Count MPV Immature Gran % (Auto) Neut % (Auto) Lymph % (Auto) [place] % (Auto) Eos % (Auto) Baso % (Auto) Absolute Neuts (auto) Absolute Lymphs (auto) Total Counted Neutrophils % (Manual) Band Neutrophils % Lymphocytes % (Manual) Monocytes % (Manual) Eosinophils % (Manual) Basophils % (Manual) Metamyelocytes % Myelocytes % Promyelocytes % Blast Cells % Plasma Cell % (Manual) Other Cells % Nucleated RBC % Nucleated RBCs/100 WBC Differential Comment Diff Path Review Hypersegmented Neuts Atypical Lymphocytes Reactive Lymphocytes Smudge Cells Toxic Granulation Toxic Vacuolation Dohle Bodies Danielle Rods Platelet Estimate Plt Morphology Comment RBC Morphology Polychromasia Hypochromasia Poikilocytosis Basophilic Stippling Anisocytosis Microcytosis Macrocytosis Spherocytes Sickle Cells Target Cells Tear Drop Cells Ovalocytes Stomatocytes [place] Bodies Silvia Cells Bite Cells Crenated Cell Acanthocytes (Spur) Rouleaux Schistocytes Specimen Type Sample Site pH Bicarbonate Actual Total CO2 Base Excess O2 Saturation O2 % ABG pCO2 ABG pO2 Remy Test O2 Delivery Device Sodium 119 L* Potassium 3.0 L Chloride 81 L Carbon Dioxide 31.0 Anion Gap 7 BUN 11 Creatinine 0.64 Estim Creat Clear Calc 57.12 Est GFR (MDRD) Af Amer 120 Est GFR (MDRD) Non-Af 100 BUN/Creatinine Ratio 17.1 Glucose 134 H Hemoglobin A1c 5.5 Lactic Acid Calcium 8.3 L Phosphorus 3.1 Magnesium 1.8 Total Bilirubin 0.90 Direct Bilirubin 0.34 H AST 29 ALT 30 Alkaline Phosphatase 95 Troponin I Total Protein 6.5 Albumin 3.6 Globulin 2.9 Albumin/Globulin Ratio TSH 0.56 Urine Color Urine Clarity Urine pH Ur Specific [place] Urine Protein Urine Glucose (UA) Urine Ketones Urine Occult Blood Urine Nitrite Urine Bilirubin Urine Urobilinogen Ur Leukocyte Esterase Urine RBC Urine WBC Ur Squamous Epith Cells Urine Bacteria Urine Mucus Urine Osmolality Ur Random Sodium Urine Creatinine Urine Opiates Screen Urine Methadone Screen Ur Barbiturates Screen Ur Phencyclidine Scrn Ur Amphetamines Screen U Methamphetamin-MDMA U Benzodiazepines Scrn Urine Cocaine Screen U Cannabinoids Screen Ur Drug Screen Comment Ethyl Alcohol 9.0 COVID-19 (CHRISTOPHER) MRSA (PCR) 07/01/20 07/02/20 07/02/20 23:59 00:29 00:30 WBC Corrected WBC RBC Hgb Hct MCV MCH MCHC RDW Std Deviation RDW Coeff of Raymond Plt Count MPV Immature Gran % (Auto) Neut % (Auto) Lymph % (Auto) [place] % (Auto) Eos % (Auto) Baso % (Auto) Absolute Neuts (auto) Absolute Lymphs (auto) Total Counted Neutrophils % (Manual) Band Neutrophils % Lymphocytes % (Manual) Monocytes % (Manual) Eosinophils % (Manual) Basophils % (Manual) Metamyelocytes % Myelocytes % Promyelocytes % Blast Cells % Plasma Cell % (Manual) Other Cells % Nucleated RBC % Nucleated RBCs/100 WBC Differential Comment Diff Path Review Hypersegmented Neuts Atypical Lymphocytes Reactive Lymphocytes Smudge Cells Toxic Granulation Toxic Vacuolation Dohle Bodies Danielle Rods Platelet Estimate Plt Morphology Comment RBC Morphology Polychromasia Hypochromasia Poikilocytosis Basophilic Stippling Anisocytosis Microcytosis Macrocytosis Spherocytes Sickle Cells Target Cells Tear Drop Cells Ovalocytes Stomatocytes [place] Bodies [place] Cells Bite Cells Crenated Cell Acanthocytes (Spur) Rouleaux Schistocytes Specimen Type Sample Site pH Bicarbonate Actual Total CO2 Base Excess O2 Saturation O2 % ABG pCO2 ABG pO2 Remy Test O2 Delivery Device Sodium Potassium Chloride Carbon Dioxide Anion Gap BUN Creatinine Estim Creat Clear Calc Est GFR (MDRD) Af Amer Est GFR (MDRD) Non-Af BUN/Creatinine Ratio Glucose Hemoglobin A1c Lactic Acid Calcium Phosphorus Magnesium Total Bilirubin Direct Bilirubin AST ALT Alkaline Phosphatase Troponin I Total Protein Albumin Globulin Albumin/Globulin Ratio TSH Urine Color Urine Clarity Urine pH Ur Specific [place] Urine Protein Urine Glucose (UA) Urine Ketones Urine Occult Blood Urine Nitrite Urine Bilirubin Urine Urobilinogen Ur Leukocyte Esterase Urine RBC Urine WBC Ur Squamous Epith Cells Urine Bacteria Urine Mucus Urine Osmolality 207 Ur Random Sodium Urine Creatinine 17.40 Urine Opiates Screen Urine Methadone Screen Ur Barbiturates Screen Ur Phencyclidine Scrn Ur Amphetamines Screen U Methamphetamin-MDMA U Benzodiazepines Scrn Urine Cocaine Screen U Cannabinoids Screen Ur Drug Screen Comment Ethyl Alcohol COVID-19 (CHRISTOPHER) MRSA (PCR) Negative 07/02/20 07/02/20 07/02/20 00:30 00:30 00:30 WBC Corrected WBC RBC Hgb Hct MCV MCH MCHC RDW Std Deviation RDW Coeff of Raymond Plt Count MPV Immature Gran % (Auto) Neut % (Auto) Lymph % (Auto) [place] % (Auto) Eos % (Auto) Baso % (Auto) Absolute Neuts (auto) Absolute Lymphs (auto) Total Counted Neutrophils % (Manual) Band Neutrophils % Lymphocytes % (Manual) Monocytes % (Manual) Eosinophils % (Manual) Basophils % (Manual) Metamyelocytes % Myelocytes % Promyelocytes % Blast Cells % Plasma Cell % (Manual) Other Cells % Nucleated RBC % Nucleated RBCs/100 WBC Differential Comment Diff Path Review Hypersegmented Neuts Atypical Lymphocytes Reactive Lymphocytes Smudge Cells Toxic Granulation Toxic Vacuolation Dohle Bodies Danielle Rods Platelet Estimate Plt Morphology Comment RBC Morphology Polychromasia Hypochromasia Poikilocytosis Basophilic Stippling Anisocytosis Microcytosis Macrocytosis Spherocytes Sickle Cells Target Cells Tear Drop Cells Ovalocytes Stomatocytes [place] Bodies [place] Cells Bite Cells Crenated Cell Acanthocytes (Spur) Rouleaux Schistocytes Specimen Type Sample Site pH Bicarbonate Actual Total CO2 Base Excess O2 Saturation O2 % ABG pCO2 ABG pO2 Remy Test O2 Delivery Device Sodium Potassium Chloride Carbon Dioxide Anion Gap BUN Creatinine Estim Creat Clear Calc Est GFR (MDRD) Af Amer Est GFR (MDRD) Non-Af BUN/Creatinine Ratio Glucose Hemoglobin A1c Lactic Acid Calcium Phosphorus Magnesium Total Bilirubin Direct Bilirubin AST ALT Alkaline Phosphatase Troponin I Total Protein Albumin Globulin Albumin/Globulin Ratio TSH Urine Color Yellow Urine Clarity Clear Urine pH 7.0 Ur Specific [place] 1.010 Urine Protein Negative Urine Glucose (UA) Normal Urine Ketones 5 H Urine Occult Blood Negative Urine Nitrite Negative Urine Bilirubin Negative Urine Urobilinogen Normal Ur Leukocyte Esterase Negative Urine RBC 0 SEEN Urine WBC 0-5 SEEN Ur Squamous Epith Cells 0 SEEN Urine Bacteria 0 SEEN Urine Mucus 0 SEEN Urine Osmolality Ur Random Sodium 36 Urine Creatinine Urine Opiates Screen NEGATIVE Urine Methadone Screen NEGATIVE Ur Barbiturates Screen NEGATIVE Ur Phencyclidine Scrn NEGATIVE Ur Amphetamines Screen NEGATIVE U Methamphetamin-MDMA NEGATIVE U Benzodiazepines Scrn NEGATIVE Urine Cocaine Screen NEGATIVE U Cannabinoids Screen POSITIVE H Ur Drug Screen Comment Ethyl Alcohol COVID-19 (CHRISTOPHER) MRSA (PCR) 07/02/20 07/02/20 07/02/20 02:10 04:50 04:50 WBC 3.1 L Corrected WBC RBC 4.07 L Hgb 12.7 Hct 34.1 L MCV 83.8 MCH 31.2 MCHC 37.2 H RDW Std Deviation 34.5 L RDW Coeff of Raymond 11.4 L Plt Count 204 MPV 8.8 Immature Gran % (Auto) 0.300 Neut % (Auto) 87.9 H Lymph % (Auto) 9.6 L [place] % (Auto) 2.2 Eos % (Auto) 0.0 Baso % (Auto) 0.0 Absolute Neuts (auto) 2.8 Absolute Lymphs (auto) 0.30 L Total Counted Neutrophils % (Manual) Band Neutrophils % Lymphocytes % (Manual) Monocytes % (Manual) Eosinophils % (Manual) Basophils % (Manual) Metamyelocytes % Myelocytes % Promyelocytes % Blast Cells % Plasma Cell % (Manual) Other Cells % Nucleated RBC % 0 Nucleated RBCs/100 WBC Differential Comment COMMENT Diff Path Review Reviewed Hypersegmented Neuts Atypical Lymphocytes Reactive Lymphocytes Smudge Cells Toxic Granulation Toxic Vacuolation Dohle Bodies Danielle Rods Platelet Estimate Plt Morphology Comment RBC Morphology Polychromasia Hypochromasia Poikilocytosis Basophilic Stippling Anisocytosis Microcytosis Macrocytosis Spherocytes Sickle Cells Target Cells Tear Drop Cells Ovalocytes Stomatocytes [place] Bodies Silvia Cells Bite Cells Crenated Cell Acanthocytes (Spur) Rouleaux Schistocytes Specimen Type Sample Site pH Bicarbonate Actual Total CO2 Base Excess O2 Saturation O2 % ABG pCO2 ABG pO2 Remy Test O2 Delivery Device Sodium 119 L* 122 L Potassium 3.7 3.4 L Chloride 84 L 84 L Carbon Dioxide 28.0 28.0 Anion Gap 7 10 BUN 9 8 Creatinine 0.60 0.48 L Estim Creat Clear Calc 60.93 76.17 Est GFR (MDRD) Af Amer 129 171 Est GFR (MDRD) Non-Af 107 141 BUN/Creatinine Ratio 14.9 16.8 Glucose 313 H 258 H Hemoglobin A1c Lactic Acid Calcium 7.1 L 7.2 L Phosphorus Magnesium Total Bilirubin Direct Bilirubin AST ALT Alkaline Phosphatase Troponin I Total Protein Albumin Globulin Albumin/Globulin Ratio TSH Urine Color Urine Clarity Urine pH Ur Specific [place] Urine Protein Urine Glucose (UA) Urine Ketones Urine Occult Blood Urine Nitrite Urine Bilirubin Urine Urobilinogen Ur Leukocyte Esterase Urine RBC Urine WBC Ur Squamous Epith Cells Urine Bacteria Urine Mucus Urine Osmolality Ur Random Sodium Urine Creatinine Urine Opiates Screen Urine Methadone Screen Ur Barbiturates Screen Ur Phencyclidine Scrn Ur Amphetamines Screen U Methamphetamin-MDMA U Benzodiazepines Scrn Urine Cocaine Screen U Cannabinoids Screen Ur Drug Screen Comment Ethyl Alcohol COVID-19 (CHRISTOPHER) MRSA (PCR) 07/02/20 07/03/20 06:15 06:12 WBC Corrected WBC RBC Hgb Hct MCV MCH MCHC RDW Std Deviation RDW Coeff of Raymond Plt Count MPV Immature Gran % (Auto) Neut % (Auto) Lymph % (Auto) [place] % (Auto) Eos % (Auto) Baso % (Auto) Absolute Neuts (auto) Absolute Lymphs (auto) Total Counted Neutrophils % (Manual) Band Neutrophils % Lymphocytes % (Manual) Monocytes % (Manual) Eosinophils % (Manual) Basophils % (Manual) Metamyelocytes % Myelocytes % Promyelocytes % Blast Cells % Plasma Cell % (Manual) Other Cells % Nucleated RBC % Nucleated RBCs/100 WBC Differential Comment Diff Path Review Hypersegmented Neuts Atypical Lymphocytes Reactive Lymphocytes Smudge Cells Toxic Granulation Toxic Vacuolation Dohle Bodies Danielle Rods Platelet Estimate Plt Morphology Comment RBC Morphology Polychromasia Hypochromasia Poikilocytosis Basophilic Stippling Anisocytosis Microcytosis Macrocytosis Spherocytes Sickle Cells Target Cells Tear Drop Cells Ovalocytes Stomatocytes [place] Bodies Silvia Cells Bite Cells Crenated Cell Acanthocytes (Spur) Rouleaux Schistocytes Specimen Type Sample Site pH Bicarbonate Actual Total CO2 Base Excess O2 Saturation O2 % ABG pCO2 ABG pO2 Remy Test O2 Delivery Device Sodium 121 L 124 L Potassium 3.4 L 3.5 Chloride 83 L 90 L Carbon Dioxide 30.0 25.0 Anion Gap 8 9 BUN 8 8 Creatinine 0.55 0.58 Estim Creat Clear Calc 66.47 67.38 Est GFR (MDRD) Af Amer 145 135 Est GFR (MDRD) Non-Af 120 111 BUN/Creatinine Ratio 14.6 13.7 Glucose 146 H 125 H Hemoglobin A1c Lactic Acid Calcium 8.0 L 8.1 L Phosphorus Magnesium Total Bilirubin 0.50 Direct Bilirubin AST 24 ALT 27 Alkaline Phosphatase 86 Troponin I Total Protein 6.2 L Albumin 3.3 Globulin 2.9 Albumin/Globulin Ratio 1.1 TSH Urine Color Urine Clarity Urine pH Ur Specific [place] Urine Protein Urine Glucose (UA) Urine Ketones Urine Occult Blood Urine Nitrite Urine Bilirubin Urine Urobilinogen Ur Leukocyte Esterase Urine RBC Urine WBC Ur Squamous Epith Cells Urine Bacteria Urine Mucus Urine Osmolality Ur Random Sodium Urine Creatinine Urine Opiates Screen Urine Methadone Screen Ur Barbiturates Screen Ur Phencyclidine Scrn Ur Amphetamines Screen U Methamphetamin-MDMA U Benzodiazepines Scrn Urine Cocaine Screen U Cannabinoids Screen Ur Drug Screen Comment Ethyl Alcohol COVID-19 (CHRISTOPHER) MRSA (PCR) Microbiology 07/02/20 00:30 Sputum, Expectorated/Coughed Gram Stain - Final 07/01/20 23:55 Mucosa - Nasopharyngeal Respiratory Panel (PCR) - Final 07/02/20 00:30 Urine, Clean Catch Streptococcus pneumoniae Antigen (M - Final 07/02/20 00:30 Urine, Clean Catch Legionella Antigen - Final Clinical Impression(s) from Imaging Studies Chest X-Ray 07/01/20 19:37 IMPRESSION: No acute cardiopulmonary disease or major interval change. Electronically Signed: Scooter Bonilla DO at 19:55 EDT Tel [phone], Service support , Chest X-Ray 07/02/20 05:55 IMPRESSION: Hyperinflation. Mild increased markings at the lung bases suggestive of atelectasis with blunting of the left costophrenic angle. Electronically Signed: Giacomo Lopez, at 8:12 EDT , Service support , Chest CT 07/02/20 05:56 IMPRESSION: Emphysematous changes. Calcified granuloma in the right lower lobe. No acute abnormality is seen. Electronically Signed: Giacomo Lopez, at 8:25 EDT , Service support , Current Medications Acetaminophen (Tylenol) 650 mg PO Q6H PRN PRN PRN Reason: Pain Score 1-10/Temp > 100.7 F Last Admin: 07/03/20 05:19 Dose: 650 mg Documented by: Albuterol Sulfate (Ventolin Aerosols) 2.5 mg INHALATION Q2H PRN PRN PRN Reason: Dyspnea, wheezing Last Admin: 07/03/20 04:32 Dose: 2.5 mg Documented by: Albuterol/Ipratropium (Duoneb) 3 ml INHALATION Q4HWA.RT [facility] Last Admin: 07/03/20 06:59 Dose: 3 ml Documented by: Calamine/Phenol (Calmoseptine Ointment) 1 applic TOPICAL TID [facility]; Protocol Last Admin: 07/03/20 05:15 Dose: 1 applicatio Documented by: Enoxaparin Sodium (Lovenox) 40 mg SC DAILY [facility] Last Admin: 07/02/20 11:13 Dose: 40 mg Documented by: Guaifenesin (Robitussin) 10 ml PO Q4H PRN PRN PRN Reason: COUGH Last Admin: 07/03/20 05:17 Dose: 10 ml Documented by: Sodium Chloride () 1,000 mls @ 125 mls/hr IV .Q8H [facility] Last Admin: 07/03/20 04:20 Dose: 125 mls/hr Documented by: Sodium Chloride () 250 mls @ 15 mls/hr IV .[id number] PRN PRN Reason: Saline Flush Sodium Chloride () 250 mls @ 15 mls/hr IV .[id number] PRN PRN Reason: Additional IVPB Infusion Methylprednisolone (Solu-Medrol) 20 mg IV Q8 [facility] Last Admin: 07/03/20 05:14 Dose: 20 mg Documented by: Metoprolol Succinate (Toprol Xl (Beta [place])) 25 mg PO DAILY [facility] Last Admin: 07/02/20 11:14 Dose: 25 mg Documented by: Nicotine (Nicoderm Cq (Pbkc)) 21 mg TRANSDERM. DAILY [facility] Last Admin: 07/02/20 11:14 Dose: 21 mg Documented by: Nutritional Formula (Lactose Free) (Ensure Enlive) 120 ml PO 4X/DAY TI Last Admin: 07/02/20 20:55 Dose: 120 ml Documented by: Ondansetron HCl (Zofran) 4 mg IV Q8H PRN PRN PRN Reason: NAUSEA/VOMITING Sodium Chloride () 10 - 40 ml IV UD PRN PRN Reason: SALINE FLUSH Last Admin: 07/03/20 05:14 Dose: 10 ml Documented by: Medical Necessity - Tobacco Use Smoking Status: Current every day smoker Tobacco Use: Cigarettes Assessment/Plan All Active Problems Respiratory failure with hypoxia (Acute) Hyponatremia (Acute) Hypokalemia (Acute) COPD exacerbation (Acute) RECOMMENDATIONS: 1. Continue scheduled bronchodilators and IV steroids. 2. Encourage incentive spirometer use and mobilize patient as tolerated. 3. Okay to discontinue antimicrobials. 4. Continue nicotine replacement therapy while admitted to the hospital. 5. Perform walking oximetry study prior to consideration for discharge home. 6. The patient should ideally follow-up in the pulmonary medicine clinic within 2 weeks of discharge. IMPRESSIONS: 1. Acute hypoxemic respiratory failure secondary to presumptive COPD with exacerbation Likely precipitated by noncompliance with previously prescribed maintenance inhaler regimen. The patient apparently ran out of her inhalers sometime ago. She does have an extensive smoking history, but has never been formally evaluated with pulmonary function studies to assess the severity of her underlying obstructive lung disease. CT chest completed this morning only revealed evidence of bilateral emphysematous changes without focal findings to suggest infection. Therefore, antimicrobials can be discontinued from my perspective. We will plan to continue the patient on scheduled bronchodilators along with IV steroids. Continue to encourage incentive spirometer use while in bed. Perform walking oximetry study prior to consideration for discharge home. 2. Hyponatremia/hypochloremia/hypokalemia Improving. I do suspect that this is likely due to hypovolemia. The patient has responded appropriately to gentle IV fluid hydration. 3. History of tobacco dependency Smoking cessation counseling was provided. Nicotine replacement therapy will be continued while admitted to the hospital. I would recommend close outpatient pulmonary follow-up. This note was generated with [employer] dictation software. It may contain incorrect words, spelling, and punctuation that were not noted in checking the note before signing. Inpatient E&M: [id number] Subs Hosp L2
[2020-07-03] MEDS: Metoprolol(XL)Succ 25 MG Tablet PO (09:43)
[2020-07-03] MEDS: Enoxaparin 40 MG/0.4 ML Syringe SC (09:44)
--- NOTE | 2020-07-03 11:23 | CASEMGMT ---
Addendum entered by Concepcion Zavaleta 07/03/20 14:28: Call from [place] at [facility] in [place] stating that 24hr needs to be marked on order for pt at this time and this RN CM informed her that pt only needs O2 w/ exertion at this time and Salina seems confused regarding order at this time. Salina states she will call Meenakshi Membreno to clarify at this time. This RN CM then attempted to call [facility] and call was forwarded to [place]. Ck from [facility] was e-mailed to call this RN CM regarding pt at this time. Idania VANG CM Addendum entered by Concepcion Zavaleta 07/03/20 11:26: Referral faxed to [facility] once script signed by physician. Idania VANG CM Original Note: Per Sharonda VANG, pt does qualify for home oxygen 3liters w/ exertion at this time. This RN CM to room to discuss DME company and further discharge planning with pt at this time. Pt states that she would like [facility] for home oxygen at this time as they are the in-network local DME company at this time. Pt declines need for any further therapy, HHC or OP, at this time. Pt states that she lives with family. Pt voices no further questions/concerrns/needs at this time. Idania VANG CM
--- NOTE | 2020-07-03 14:46 | DCINST_ITS ---
- Discharge Diagnoses Current Active Problems: Current Active and Chronic Problems Respiratory failure with hypoxia (Acute) Hyponatremia (Acute) Hypokalemia (Acute) COPD exacerbation (Acute) Hyperlipidemia (Chronic) Severe protein-calorie malnutrition (Chronic) You will use the following diet at home:: No restrictions Your food should be the consistency of: Regular, Soft (bite-sized & easy to chew/swallow) Discharge Activity: Return to Normal Activity Weight Bearing Status: Full weight bearing Additional Instructions: use oxygen with activity at 3 liters/min. do not smoke. recommend you take aspirin 81 mg per day Allergies/Adverse Reactions: Allergies Iodinated Contrast Media [Iodinated Contrast Media - IV Dye] Allergy (Verified 12/07/18 15:51) Vomiting Medications to take at Discharge Albuterol Aerosols [Ventolin Aerosols] 2.5 mg INHALATION Q4H PRN PRN 07/01/20 Aspirin/Caffeine [Back-Body Pain 500-32.5MG Cplt] 2 tab PO Q6H PRN PRN 07/01/20 Diphenhydramine HCl [Benadryl Allergy] 100 mg PO DAILY PRN PRN 07/01/20 Albuterol Aerosols [Ventolin Aerosols] 2.5 mg INHALATION Q2H PRN PRN vial.neb. 07/03/20 Ipratropium/Albuterol Sulfate [Duoneb] 3 ml INHALATION 4X/DAY ampul.neb 07/03/20 Metoprolol Tartrate 25 mg PO BID #60 tab 07/03/20 Nicotine [Nicoderm Cq] 21 mg TRANSDERM. DAILY #30 patch 07/03/20 Prednisone 20 mg PO DAILY #10 tab 07/03/20 The following prescriptions were given: Metoprolol Tartrate 25 mg PO BID #60 tab Transmission Status: Pending to [facility] Nicotine [Nicoderm Cq] 21 mg TRANSDERM. DAILY #30 patch Transmission Status: Pending to [facility] Prednisone 20 mg PO DAILY #10 tab Transmission Status: Pending to [facility] Primary Care Physician: Erick Colon DO [Primary Care Provider] - Please follow up with your Primary Care Physician in: in 1-2 weeks- you will need a BMP drawn to check your sodium Test Results: Test results from this visit will be discussed in further detail at your follow- up appointment, if applicable. Please Follow Up With: Donavan Ray, DO When: in 2 weeks
--- NOTE | 2020-07-03 14:59 | PCM.HOSP.N ---
Hospitalist Note Patient's pulse ox at rest on room air today was 95%, on ambulation on room air her O2 sat was 84%, with the administration of 3 L of oxygen via nasal cannula ambulating, her pulse ox was 92%. Patient will need oxygen while ambulating at 3 L/min, she is expected to use the oxygen in her home and outside her home.
--- NOTE | 2020-07-03 15:56 | DS.PCM_ITS ---
Discharge Date and Diagnosis - Problem List Patient Problems: Active and Suspected Problems Respiratory failure with hypoxia (Acute) Hyponatremia (Acute) Hypokalemia (Acute) COPD exacerbation (Acute) Date of Admission: 07/01/20 Date of Discharge: 07/03/20 - Primary Discharge Diagnosis Acute Problems: Active Problems #1 acute hypoxic respiratory failure secondary to COPD exacerbation from medication noncompliance #2 hyponatremia-suspected to be hypovolemic in nature #3 essential hypertension #4 Moderate protein and caloric malnutrition #5 cerebrovascular disease - Secondary Discharge Diagnosis Chronic Problems: Chronic Problems Hyperlipidemia (Chronic) Severe protein-calorie malnutrition (Chronic) Chronic obstructive lung disease (Chronic) Tobacco abuse disorder (Chronic) History of syncope (Chronic) Gastroesophageal reflux disease (Chronic) Benign hypertension (Chronic) History of cerebrovascular disease (Chronic) remote stroke Hospital Course and Treatment Operations: None Procedures: None Summary of Care Provided: The patient is a 60 year old F who was seen in the emergency room at [facility] with chief complaint of progressive shortness of breath over 48 hours. Patient had a history of COPD but was noncompliant with her medications stating that she could not afford her inhalers. Work-up in the emergency room included a chest x-ray showed no acute cardiopulmonary disease or major interval change, patient was found to be hyponatremic with a sodium of 114, potassium was 3, tox screen was positive For cannabinoids, COVID-19 test was negative. Patient's urinalysis was unremarkable. Patient had to be placed on BiPAP to maintain her oxygen saturation, she was admitted to ICU overnight and was weaned from BiPAP without incident. Patient was given IV fluids and labs were monitored, patient's potassium and sodium improved with potassium supplementation and fluid administration. Patient was transferred to PCU, she remained medically stable and did not require oxygen at rest but on ambulation, she required 3 L to maintain her pulse ox above 90%. Patient was seen in consultation by nutritional services due to her moderate protein and caloric malnutrition. On 07/03/2020, patient was seen and examined: On examination she appeared older than her stated age, she was cachectic appearing, she does not appear to be in any distress. Vital signs as documented. Skin warm and dry and without overt rashes. Neck without JVD, thyroid appears normal, trachea is midline, neck is supple. Lungs clear, normal air movement was noted. Heart exam notable for regular rhythm, normal sounds and absence of murmurs, rubs or gallops. Abdomen unremarkable and without evidence of organomegaly, masses, or abdominal aortic enlargement, bowel sounds are present in all 4 quadrants, no abdominal tenderness was noted. Extremities nonedematous, no cyanosis was noted, no clubbing was noted. Neuro: Cranial nerves II through XII are grossly intact, no focal motor deficits were noted, sensation to light touch and pinprick is intact, motor exam 5/5 throughout. Psych: Patient is alert and oriented x3, she does not appear anxious or depressed, she does not appear agitated. On 07/03/2020, patient was seen and examined and felt to be stable for discharge home, I talked with her daughter prior to her discharge concerning her medical problems and medical care. She was instructed to follow with pulmonary medicine in 2 weeks after her discharge and follow-up with her PCP in 1 week to have her BMP rechecked. Patient Problems: Active and Suspected Problems Respiratory failure with hypoxia (Acute) Hyponatremia (Acute) Hypokalemia (Acute) COPD exacerbation (Acute) - Physical Exam Vitals/I&O's: Vital Signs Temp Pulse Resp BP Pulse Ox 99.3 F H 110 H 18 142/98 H 96 07/03/20 14:47 07/03/20 15:00 07/03/20 14:47 07/03/20 14:47 07/03/20 14:47 Oxygen Flow Rate (L/min) [ 3 AMBULATION with Oxygen] Oxygen Flow Rate (L/min) 2 Oxygen Delivery Method Nasal Cannula Weight: 41.9 kg Body Mass Index (BMI) 16.3 Intake and Output for Last 24 Hours 07/01/20 07/02/20 07/03/20 23:59 23:59 23:59 Intake Total 1000 / 1000 5045.69 / 5045.69 2707.08 / 2707.08 Output Total 300 / 300 Balance 1000 / 1000 4745.69 / 4745.69 2707.08 / 2707.08 Microbiology Past 72 Hours 07/02/20 00:30 Sputum, Expectorated/Coughed Gram Stain - Final 07/02/20 00:30 Sputum, Expectorated/Coughed Respiratory Culture - Preliminary Gram negative diplococci 07/01/20 23:55 Mucosa - Nasopharyngeal Respiratory Panel (PCR) - Final 07/02/20 00:30 Urine, Clean Catch Streptococcus pneumoniae Antigen (M - Final 07/02/20 00:30 Urine, Clean Catch Legionella Antigen - Final Laboratory Results 07/03/20 06:12: Sodium 124 L, Potassium 3.5, Chloride 90 L, Carbon Dioxide 25.0, Anion Gap 9, BUN 8, Creatinine 0.58, Estim Creat Clear Calc 67.38, Est GFR (MDRD) Af Amer 135, Est GFR (MDRD) Non-Af 111, BUN/Creatinine Ratio 13.7, Glucose 125 H, Calcium 8.1 L Current Medications Acetaminophen (Tylenol) 650 mg PO Q6H PRN PRN PRN Reason: Pain Score 1-10/Temp > 100.7 F Last Admin: 07/03/20 05:19 Dose: 650 mg Documented by: Albuterol Sulfate (Ventolin Aerosols) 2.5 mg INHALATION Q2H PRN PRN PRN Reason: Dyspnea, wheezing Last Admin: 07/03/20 04:32 Dose: 2.5 mg Documented by: Albuterol/Ipratropium (Duoneb) 3 ml INHALATION Q4HWA.RT [facility] Last Admin: 07/03/20 15:39 Dose: Not Given Documented by: Calamine/Phenol (Calmoseptine Ointment) 1 applic TOPICAL TID [facility]; Protocol Last Admin: 07/03/20 15:09 Dose: Not Given Documented by: Enoxaparin Sodium (Lovenox) 40 mg SC DAILY [facility] Last Admin: 07/03/20 09:44 Dose: 40 mg Documented by: Guaifenesin (Robitussin) 10 ml PO Q4H PRN PRN PRN Reason: COUGH Last Admin: 07/03/20 05:17 Dose: 10 ml Documented by: Sodium Chloride () 250 mls @ 15 mls/hr IV .[id number] PRN PRN Reason: Saline Flush Sodium Chloride () 250 mls @ 15 mls/hr IV .[id number] PRN PRN Reason: Additional IVPB Infusion Methylprednisolone (Solu-Medrol) 20 mg IV Q8 [facility] Last Admin: 07/03/20 15:10 Dose: Not Given Documented by: Metoprolol Succinate (Toprol Xl (Beta [place])) 25 mg PO DAILY [facility] Last Admin: 07/03/20 09:43 Dose: 25 mg Documented by: Nicotine (Nicoderm Cq (Pbkc)) 21 mg TRANSDERM. DAILY TI Last Admin: 07/03/20 09:44 Dose: 21 mg Documented by: Nutritional Formula (Lactose Free) (Ensure Enlive) 120 ml PO 4X/DAY TI Last Admin: 07/03/20 15:09 Dose: Not Given Documented by: Ondansetron HCl (Zofran) 4 mg IV Q8H PRN PRN PRN Reason: NAUSEA/VOMITING Sodium Chloride () 10 - 40 ml IV UD PRN PRN Reason: SALINE FLUSH Last Admin: 07/03/20 09:47 Dose: 10 ml Documented by: Discharge Activity: Return to Normal Activity Weight Bearing Status: Full weight bearing Home Medications: Medications to take at Discharge Albuterol Aerosols [Ventolin Aerosols] 2.5 mg INHALATION Q4H PRN PRN 07/01/20 Aspirin/Caffeine [Back-Body Pain 500-32.5MG Cplt] 2 tab PO Q6H PRN PRN 07/01/20 Diphenhydramine HCl [Benadryl Allergy] 100 mg PO DAILY PRN PRN 07/01/20 Albuterol Aerosols [Ventolin Aerosols] 2.5 mg INHALATION Q2H PRN PRN vial.neb. 07/03/20 Ipratropium/Albuterol Sulfate [Duoneb] 3 ml INHALATION 4X/DAY ampul.neb 07/03/20 Metoprolol Tartrate 25 mg PO BID #60 tab 07/03/20 Nicotine [Nicoderm Cq] 21 mg TRANSDERM. DAILY #30 patch 07/03/20 Prednisone 20 mg PO DAILY #10 tab 07/03/20 Following Prescriptions Were Given to Patient: Metoprolol Tartrate 25 mg PO BID #60 tab Transmission Status: Received by [facility] Nicotine [Nicoderm Cq] 21 mg TRANSDERM. DAILY #30 patch Transmission Status: Received by CATINA CONTRERAS RD Prednisone 20 mg PO DAILY #10 tab Transmission Status: Received by [facility] CONTR[facility] Primary Care Physician: Erick Colon DO [Primary Care Provider] - Please follow up with your Primary Care Physician in: in 1-2 weeks- you will need a BMP drawn to check your sodium Please Follow Up With: Donavan Ray DO When: in 2 weeks Please Follow Up With: Erick Colon, When: 1-2 weeks Disposition: Home Minutes spent on discharge:: 32 Patient Condition:: Stable Medical Necessity - Tobacco Use Smoking Status: Current every day smoker Tobacco Use: Cigarettes Meaningful Use Info Meaningful Use Diagnoses (Choose all that apply): None applicable Inpatient E&M: 59815 Disch Hosp
--- NOTE | 2020-07-04 16:04 | CASEMGMT ---
[facility]ER[facility] Discharge Follow-Up Phone Call. Jacqueline: Kristy Strata: 3 Discharge Date: 07/03/20 Adm Dx: Resp failure, COPD exac, Hyponatremia, Hypokalemia. Call to pt to inquire about how she has been doing since being discharged from the hospital. Pt's daughter, Angelique, answered and spoke w/this CIER[facility] REED. She states they had several questions yesterday about the discharge instructions but that she spoke w/Dr Longoria and everything was explained and she has no further questions. She states they were able to get all of the new prescriptions except for the Nicotine patch but that will be coming in. She denies having any questions about the medications. Reviewed the appts with DEPARTMENT OF SOCIOLOGY CHAIR, Maria M Crandall and with Dr Ray. Angelique inquired if pt needed to go to both of these appts. CIERA REED explained to Angelique that yes her mom does need to go to both and informed her that Dr Ray is a substation engineer and she stated, Oh. Okay. That makes sense now. She was made aware Dr Ray's office is located @ [facility] and she voiced appreciation. Irena WHITNEY RN, CM
== END 2020-07-03 16:28 | disposition home or self-care (01) | DRG 190 ==
LOC: ED 21:46 → ICU 07-02 04:15 → PCU 07-02 12:48
PROVIDERS: Admitting Provider Family Medicine; Emergency Provider Emergency Medicine; PCP Student in an Organized Health Care Education/Training Program; Visit Provider Internal Medicine
DX: J44.1 Chronic obstructive pulmonary disease with (acute) exacerbation (principal); J96.01 Acute respiratory failure with hypoxia; E43 Unspecified severe protein-calorie malnutrition; E87.1 Hypo-osmolality and hyponatremia; Z68.1 Body mass index [BMI] 19.9 or less, adult; I10 Essential (primary) hypertension; K21.9 Gastro-esophageal reflux disease without esophagitis; E87.6 Hypokalemia; E78.5 Hyperlipidemia, unspecified; F17.210 Nicotine dependence, cigarettes, uncomplicated; Z91.14 Patient's other noncompliance with medication regimen; Z86.73 Personal history of transient ischemic attack (TIA), and cerebral infarction without residual deficits; R73.9 Hyperglycemia, unspecified; F19.11 Other psychoactive substance abuse, in remission; T38.0X5A Adverse effect of glucocorticoids and synthetic analogues, initial encounter
CPT/HCPCS: 36415; 36600; 71045; 71270; 80048; 80053; 80076; 80307; 80320; 81001; 82570; 82803; 83036; 83605; 83735; 83935; 84100; 84300; 84443; 84484; 85025; 87040; 87070; 87077; 87205; 87449; 87633; 87635; 87641; 93005; 94002; 94003; 94640; 94668; 94799; 97110; 97162; 97166; 97530; 97802; 99251; 99285; 99406; J7030; Q9967; A4216; G0463; G0480; J0696; U0003